=== PATIENT | male | born 1955 | race Caucasian/White ===

== ENCOUNTER → 2016-09-19 | Outpatient (CLI) | payer MEDICARE, OTHER ==
[2016-09-19 13:36] LABS: Cholesterol 165 mg/dL (<200); HDL Cholesterol 38 mg/dL (40-60); Triglycerides 105 mg/dL (<150)
== END ==
LOC: LABWHC1 12:42
PROVIDERS: ATTEND Internal Medicine Interventional Cardiology
DX: E78.5 Hyperlipidemia, unspecified (principal)
CPT/HCPCS: 36415; 80061

== ENCOUNTER → 2016-12-18 | Outpatient (CLI) | payer MEDICARE, OTHER ==
[2016-12-18 13:08] LABS: Basophils % (A) 1 %; CH 28.4; CHCM 33.6; Eosinophils # (A) 0.1 k/uL (0-0.7); Eosinophils % (A) 3 %; HGB 14.4 gm/dL (13.0-17.5); Luc # (Auto) 0.12; Luc % (Auto) 2; Lymphocytes # (A) 1.3 k/uL (1.0-4.8); Lymphocytes % (A) 25 %; MCH 28.3 pg (25.0-35.0); MCHC 33.4 g/dL (31.0-37.0); MCV 84.9 fL (80.0-100.0); Mean Platelet Volume 6.8; Monocytes # (A) 0.3 k/uL (0-1.0); Monocytes % (A) 5 %; Neutrophils # (A) 3.4 k/uL (1.3-7.7); Neutrophils % (A) 65 %; RBC 5.06 m/uL (4.30-5.90); RDW 13.9 % (11.5-15.5); WBC 5.2 k/uL (3.8-10.6)
[2016-12-18 13:42] LABS: ALT 42 U/L (21-72); AST 37 U/L (17-59); Alkaline Phosphatase 76 U/L (38-126); Anion Gap 11 mmol/L; Blood Urea Nitrogen 20 mg/dL (9-20); Calcium 9.5 mg/dL (8.4-10.2); Carbon Dioxide 26 mmol/L (22-30); Chloride 107 mmol/L (98-107); Glucose 95 mg/dL (74-99); Iron 77 ug/dL (49-181); Non-African American GFR(MDRD) >60 (>60 ml/min/1.73 sqM); Potassium 4.6 mmol/L (3.5-5.1); Sodium 144 mmol/L (137-145); Total Bilirubin 0.7 mg/dL (0.2-1.3); Total Protein 7.5 g/dL (6.3-8.2)
[2016-12-18 13:50] LABS: % Iron Saturation 22.1 % (20-50); Total Iron Binding Capacity 348 ug/dL (261-462)
== END | disposition home or self-care (01) ==
LOC: LABWHC1 12:34
PROVIDERS: ATTEND Internal Medicine
DX: D50.9 Iron deficiency anemia, unspecified (principal); I10 Essential (primary) hypertension; E78.5 Hyperlipidemia, unspecified
CPT/HCPCS: 36415; 80053; 82746; 83540; 83550; 85025

== ENCOUNTER → 2017-01-23 | Outpatient (CLI) | payer MEDICARE, OTHER ==
[2017-01-23 10:29] LABS: Prothrombin Time 19.2 sec (9.0-12.0)
== END | disposition home or self-care (01) ==
LOC: LABWHC1 09:55
PROVIDERS: ATTEND Internal Medicine Interventional Cardiology
DX: Z48.812 Encounter for surgical aftercare following surgery on the circulatory system (principal); Z95.2 Presence of prosthetic heart valve
CPT/HCPCS: 36415; 85610

== ENCOUNTER → 2017-06-09 | Outpatient (CLI) | payer MEDICARE, OTHER ==
[2017-06-09 10:08] LABS: Basophils % (A) 0 %; CH 26.1; CHCM 31.5; Eosinophils # (A) 0.2 k/uL (0-0.7); Eosinophils % (A) 4 %; HCT 39.5 % (39.0-53.0); HDW 2.45; HGB 12.6 gm/dL (13.0-17.5); Luc # (Auto) 0.13; Luc % (Auto) 2; Lymphocytes # (A) 1.5 k/uL (1.0-4.8); Lymphocytes % (A) 25 %; MCH 26.5 pg (25.0-35.0); MCHC 31.9 g/dL (31.0-37.0); MCV 83.2 fL (80.0-100.0); Mean Platelet Volume 6.9; Monocytes # (A) 0.4 k/uL (0-1.0); Monocytes % (A) 7 %; Neutrophils # (A) 3.7 k/uL (1.3-7.7); Neutrophils % (A) 62 %; RBC 4.75 m/uL (4.30-5.90); RDW 15.7 % (11.5-15.5); WBC (Perox) 6.19
[2017-06-09 10:22] LABS: ALT 34 U/L (21-72); AST 26 U/L (17-59); Alkaline Phosphatase 64 U/L (38-126); Anion Gap 8 mmol/L; Blood Urea Nitrogen 18 mg/dL (9-20); Calcium 9.6 mg/dL (8.4-10.2); Carbon Dioxide 29 mmol/L (22-30); Chloride 103 mmol/L (98-107); Creatine Kinase 73 U/L (55-170); Glucose 102 mg/dL (74-99); Non-African American GFR(MDRD) >60 (>60 ml/min/1.73 sqM); Potassium 4.4 mmol/L (3.5-5.1); Sodium 140 mmol/L (137-145); Total Bilirubin 0.7 mg/dL (0.2-1.3); Total Protein 8.1 g/dL (6.3-8.2)
[2017-06-09 13:17] LABS: Erythrocyte Sedimentation Rate 20 mm/hr (0-15)
== END | disposition home or self-care (01) ==
LOC: LABWHC1 09:40
PROVIDERS: ATTEND Internal Medicine Infectious Disease
DX: M86.8X8 Other osteomyelitis, other site (principal)
CPT/HCPCS: 36415; 80053; 82550; 83735; 85025; 85652

== ENCOUNTER → 2017-06-12 | Outpatient (CLI) | payer MEDICARE, OTHER ==
--- NOTE | 2017-06-12 13:44 | NM ---
EXAMINATION TYPE: NM bone 3 phase DATE OF EXAM: 06/12/2017 COMPARISON: 05/12/2017 HISTORY: Osteomyelitis Triple phase bone scintigraphy was performed following the injection of27.7 mCi Tc 99m MDP. Immediat e images and 5 hours post injection images acquired. FINDINGS: There is increased perfusion to the medial aspect of the right distal tibia and ankle. Soft tissue up take demonstrates increased uptake. Delayed imaging demonstrates increased uptake involving the media l aspect of the ankle and proximal tarsal bones. Additional uptake on bone scan seen involving the toes bilaterally likely post arthritic. IMPRESSION: Positive triple phase bone scan consistent with cellulitis and osteomyelitis.
== END | disposition home or self-care (01) ==
LOC: RADNMMAIN 07:19
PROVIDERS: ATTEND Internal Medicine Infectious Disease
DX: M86.9 Osteomyelitis, unspecified (principal); L03.115 Cellulitis of right lower limb; T81.31XA Disruption of external operation (surgical) wound, not elsewhere classified, initial encounter
CPT/HCPCS: 78315; A9503

== ENCOUNTER → 2017-12-11 | Outpatient (CLI) | payer MEDICARE, OTHER | END | disposition home or self-care (01) | LOC: LABWHC1 09:58 | PROVIDERS: ATTEND Internal Medicine | DX: M79.1 Myalgia (principal); R25.2 Cramp and spasm | CPT/HCPCS: 36415; 82550 ==

== ENCOUNTER → 2018-03-23 | Outpatient (CLI) | payer MEDICARE, OTHER ==
[2018-03-23 11:20] LABS: Basophils % (A) 1 %; Eosinophils # (A) 0.2 k/uL (0-0.7); Eosinophils % (A) 4 %; HCT 45.4 % (39.0-53.0); HGB 14.4 gm/dL (13.0-17.5); Lymphocytes # (A) 1.6 k/uL (1.0-4.8); Lymphocytes % (A) 26 %; MCH 27.3 pg (25.0-35.0); MCHC 31.8 g/dL (31.0-37.0); Mean Platelet Volume 6.2; Monocytes # (A) 0.4 k/uL (0-1.0); Monocytes % (A) 7 %; Neutrophils # (A) 3.6 k/uL (1.3-7.7); Neutrophils % (A) 60 %; Platelet Count 228 k/uL (150-450); RBC 5.28 m/uL (4.30-5.90); RDW 13.6 % (11.5-15.5)
[2018-03-23 11:30] LABS: ALT 23 U/L (21-72); AST 25 U/L (17-59); Albumin 4.5 g/dL (3.5-5.0); Alkaline Phosphatase 73 U/L (38-126); Anion Gap 8 mmol/L; Blood Urea Nitrogen 19 mg/dL (9-20); Calcium 9.4 mg/dL (8.4-10.2); Carbon Dioxide 29 mmol/L (22-30); Chloride 107 mmol/L (98-107); Cholesterol 180 mg/dL (<200); Glucose 89 mg/dL (74-99); HDL Cholesterol 37 mg/dL (40-60); LDL Cholesterol,Calculated 109 mg/dL (0-99); Potassium 4.2 mmol/L (3.5-5.1); Sodium 144 mmol/L (137-145); Total Bilirubin 0.8 mg/dL (0.2-1.3); Total Protein 7.7 g/dL (6.3-8.2); Triglycerides 170 mg/dL (<150)
[2018-03-23 11:43] LABS: T4, Free (Free Thyroxine) 0.82 ng/dL (0.78-2.19)
[2018-03-23 17:12] LABS: Vitamin D 25 Hydroxy 37.3 ng/mL (30.0-100.0)
== END | disposition home or self-care (01) ==
LOC: LABWHC1 10:23
PROVIDERS: ATTEND Internal Medicine
DX: E78.5 Hyperlipidemia, unspecified (principal); I10 Essential (primary) hypertension; R53.83 Other fatigue; R53.1 Weakness
CPT/HCPCS: 36415; 80053; 80061; 82306; 82607; 84439; 84443; 85025

== ENCOUNTER → 2018-05-25 | Outpatient (CLI) | payer MEDICARE, OTHER ==
[2018-05-25 16:52] LABS: Blood Urea Nitrogen 18 mg/dL (9-20)
== END ==
LOC: LABWHC1 15:44
PROVIDERS: ATTEND Surgery
DX: I10 Essential (primary) hypertension (principal)
CPT/HCPCS: 36415; 82565; 84520

== ENCOUNTER → 2018-06-02 | Outpatient (CLI) | payer MEDICARE, OTHER ==
[2018-06-03 14:43] LABS: LDL Cholesterol,Calculated 110.2 mg/dL (0.0-131.0); VLDL Calculation 27.8 mg/dL (5.00-40.00)
== END | disposition home or self-care (01) ==
LOC: LABWHC1 11:40
PROVIDERS: ATTEND Internal Medicine Interventional Cardiology
DX: E78.00 Pure hypercholesterolemia, unspecified (principal)
CPT/HCPCS: 36415; 80061

== ENCOUNTER → 2018-06-09 | Outpatient (CLI) | payer MEDICARE, OTHER ==
[2018-06-09 16:15] LABS: Anion Gap 7.1 mmol/L (4.00-12.00); Calcium 9.5 mg/dL (8.7-10.3); Carbon Dioxide 27.9 mmol/L (21.6-31.8); Potassium 3.9 mmol/L (3.5-5.5)
== END | disposition home or self-care (01) ==
LOC: LABWHC1 11:08
PROVIDERS: ATTEND Internal Medicine Interventional Cardiology
DX: I10 Essential (primary) hypertension (principal)
CPT/HCPCS: 36415; 80048

== ENCOUNTER → 2018-10-01 | Outpatient (CLI) | payer MEDICARE, OTHER ==
[2018-10-01 17:57] LABS: LDL Cholesterol,Calculated 115.4 mg/dL (0.0-131.0); VLDL Calculation 33.6 mg/dL (5.00-40.00)
== END | disposition home or self-care (01) ==
LOC: LABWHC1 10:08
PROVIDERS: ATTEND Internal Medicine
DX: E78.00 Pure hypercholesterolemia, unspecified (principal)
CPT/HCPCS: 80061

== ENCOUNTER → 2019-05-03 | Outpatient (CLI) | payer MEDICARE, OTHER ==
[2019-05-03 10:56] LABS: African American GFR (CKD) >90 (>60 ml/min/1.73 sqM); Blood Urea Nitrogen 20 mg/dL (9-20)
== END ==
LOC: LABWHC1 10:17
PROVIDERS: ATTEND Surgery
DX: I10 Essential (primary) hypertension (principal)
CPT/HCPCS: 36415; 82565; 84520

== ENCOUNTER → 2019-05-24 | Outpatient (CLI) | payer MEDICARE, OTHER ==
[2019-05-24 16:50] LABS: Chol/HDL Ratio 7.05; LDL Cholesterol,Calculated 185.2 mg/dL (0.0-131.0); VLDL Calculation 38.8 mg/dL (5.00-40.00)
== END | disposition home or self-care (01) ==
LOC: LABWHC1 09:39
PROVIDERS: ATTEND Internal Medicine Interventional Cardiology
DX: E78.5 Hyperlipidemia, unspecified (principal)
CPT/HCPCS: 36415; 80061

== ENCOUNTER 2020-04-04 20:19 | Inpatient (IN) | payer MEDICARE, OTHER ==
[2020-04-04] MEDS ORDERED: ACETAMINOPHEN TAB 500 MG TAB PO STA (20:37)
--- NOTE | 2020-04-04 21:20 | ED ---
General Adult HPI <Jose L Tobar Harvey - Last Filed: 04/05/20 00:27> - General Source: patient Mode of arrival: ambulatory Limitations: no limitations <Aleshia Ornelasmelissa Olmstead - Last Filed: 04/08/20 07:06> - General Chief complaint: Nausea/Vomiting/Diarrhea Stated complaint: Fever Time Seen by Provider: 04/04/20 20:36 - History of Present Illness Initial comments: Dictation was produced using [employer] dictation software. please excuse any grammatical, word or spelling errors. This patient was cared for during a federal and state declared state of emergency secondary to Covid 19 Chief Complaint: 64-year-old male presents today with constitutional symptoms. History of Present Illness: 44-year-old male he has past medical history of valve replacement, hypertension. He presents today for constitutional symptoms. Over the last 2-3 days he's been having worsening fevers. He states his fevers at home were approximately 103. Since that he's been taking Motrin and Tylenol for his symptom control. States that his fever has not been improving. Does complain of associated myalgias, diarrhea and headache. Patient has any overt or obvious exposures to anybody with coronavirus or covid 19. Patient denies any abdominal pain. He does have some slight sore throat or what he describes as tickling in his throat. He does have mild cough however nonproductive spu alyse. The ROS documented in this emergency department record has been reviewed and confirmed by me. Those systems with pertinent positive or negative responses have been documented in the HPI. All other systems are other negative and/or noncontributory. PHYSICAL EXAM: General Impression: Alert and oriented x3, not in acute distress HEENT: Normocephalic atraumatic, extra-ocular movements intact, pupils equal and reactive to light bilaterally, mucous membranes moist, mild oropharyngeal erythema without exudates Cardiovascular: Heart regular rate and rhythm Chest: Able to complete full sentences, no retractions, no tachypnea Abdomen: abdomen soft, non-tender, non-distended, no organomegaly Musculoskeletal: Pulses present and equal in all extremities, no peripheral edema Motor: no focal deficits noted Neurological: CN II-XII grossly intact, no focal motor or sensory deficits noted, negative Brudzinski's, negative Kernig's, negative limits Skin: Intact with no visualized rashes Psych: Normal affect and mood ED course: 64 y Old male presents with fever and constitutional symptoms. Signs upon arrival shows temperature 103.0, heart rate of 124, 93% on room air. Laboratory evaluation obtained. CBC is unremarkable. There is lymph lymphocytopenia. Coag panel shows INR 2.4. D-dimer is elevated 1.02. Metabolic panel is otherwise unremarkable. He does of note had elevated lactic dehydrogenase of 81 and a CRP of 215. Urinalysis is unremarkable. Group A strep was negative. Chest x-ray is nonacute. EKG interpretation: Ventricular rate 107, sinus tachycardia, MD interval 160, QRS 92, QTc 469. No MD prolongation, no QTC prolongation, no ST or T-wave changes noted. Overall, this EKG is unremarkable (Bang Ornelas) - Related Data Home Medications Medication Instructions Recorded Confirmed Aspirin EC [Ecotrin Low Dose] 81 mg PO DAILY 12/01/14 04/04/20 Ferrous Sulfate [Iron (65 MG 325 mg PO DAILY 12/01/14 04/04/20 Elemental)] Multivit-Min/FA/Lycopene/Lut 1 each PO DAILY 12/01/14 04/04/20 [Centrum Silver Tablet] Vit C/E/Zn/Coppr/Lutein/Zeaxan 1 each PO DAILY 12/01/14 04/04/20 [Preservision Areds 2 Softgel] ALPRAZolam [Xanax] 0.25 mg PO QAM PRN 04/11/17 04/04/20 Cyanocobalamin (Vitamin B-12) 2,500 mcg PO DAILY 04/11/17 04/04/20 [Vitamin B12] Warfarin Sodium [Coumadin] 4 mg PO MO@2100 04/11/17 04/04/20 Warfarin Sodium [Coumadin] 6 mg PO SUTUWEFRSA@2100 04/11/17 04/04/20 Chlorthalidone [Hygroton] 12.5 mg PO QAM 04/04/20 04/04/20 Cholecalciferol [Vitamin D3 (25 2,000 unit PO DAILY 04/04/20 04/04/20 Mcg = 1000 Iu)] Evolocumab [Repatha Sureclick] 140 mg INJ Q14D 04/04/20 04/04/20 Losartan Potassium [Cozaar] 50 mg PO BID 04/04/20 04/04/20 Magnesium 250 mg PO HS 04/04/20 04/04/20 Metoprolol Tartrate [Lopressor] 25 mg PO BID 04/04/20 04/04/20 Tadalafil [Cialis] 10 mg PO DIRECTED PRN 04/04/20 04/04/20 Allergies Allergy/AdvReac Type Severity Reaction Status Date / Time copper Allergy Rash/Hives Verified 04/04/20 23:48 Sulfa (Sulfonamide Allergy Swelling Verified 04/04/20 23:48 Antibiotics) Review of Systems ROS Other: All systems not noted in ROS Statement are negative. <Jose L Tobar - Last Filed: 04/05/20 00:27> ROS Other: All systems not noted in ROS Statement are negative. <Bang Ornelas - Last Filed: 04/08/20 07:06> ROS Statement: Those systems with pertinent positive or pertinent negative responses have been documented in the HPI. Past Medical History Past Medical History: Hypertension, Sleep Apnea/CPAP/BIPAP, Sleep Apnea/CPAP/BIPAP Additional Past Medical History / Comment(s): BILAT CATARACTS, Aortic dissection,. HX FX RT FOOT 12/24/16. RT HEEL WOUND, History of Any Multi-Drug Resistant Organisms: MRSA Date of last positivie culture/infection: 2016 MDRO Source:: r heel Past Surgical History: Joint Replacement Additional Past Surgical History / Comment(s): aortic aneurysm repair, aortic heart valve replacement, aortic disection, total left knee replacedCOLONOSCOPY, RT FOOT SURGERY-HAS PLATE AND 10 PINS Past Anesthesia/Blood Transfusion Reactions: No Reported Reaction Past Psychological History: No Psychological Hx Reported Smoking Status: Former smoker Past Alcohol Use History: Rare Past Drug Use History: None Reported - Past Family History Father Family Medical History: Cancer Additional Family Medical History / Comment(s): lung CA Mother Family Medical History: Myocardial Infarction ([place]) Brother(s) Family Medical History: Cancer Additional Family Medical History / Comment(s): throat <Bang Ornelas - Last Filed: 04/08/20 07:06> General Exam General appearance: alert, in no apparent distress Head exam: Present: atraumatic, normocephalic, normal inspection Eye exam: Present: normal appearance, PERRL, EOMI. Absent: scleral icterus, conjunctival injection, periorbital swelling ENT exam: Present: normal exam, mucous membranes moist Neck exam: Present: normal inspection. Absent: tenderness, meningismus, lymphadenopathy Respiratory exam: Present: normal lung sounds bilaterally. Absent: respiratory distress, wheezes, rales, rhonchi, stridor Cardiovascular Exam: Present: normal rhythm, tachycardia, normal heart sounds. Absent: systolic murmur, diastolic murmur, rubs, gallop, clicks GI/Abdominal exam: Present: soft, normal bowel sounds. Absent: distended, tenderness, guarding, rebound, rigid Extremities exam: Present: normal inspection, full ROM, normal capillary refill. Absent: tenderness, pedal edema, joint swelling, calf tenderness Back exam: Present: normal inspection Neurological exam: Present: alert, oriented X3, CN II-XII intact Psychiatric exam: Present: normal affect, normal mood Skin exam: Present: warm, dry, intact, normal color. Absent: rash <Jose L Tobar - Last Filed: 04/05/20 00:27> Limitations: no limitations <Bang Ornelas - Last Filed: 04/08/20 07:06> Course <Jose L Tobar - Last Filed: 04/05/20 00:27> Vital Signs 04/04/20 04/04/20 04/04/20 20:26 22:09 23:52 Temperature 103.0 F H 100.2 F H Pulse Rate 124 H 110 H 102 H Respiratory 18 18 18 Rate Blood Pressure 122/71 108/58 108/53 O2 Sat by Pulse 93 L 94 L 96 Oximetry 04/05/20 04/05/20 04/05/20 02:10 03:22 06:23 Temperature 104.2 F H 100.4 F H 99.3 F Pulse Rate 112 H 97 Respiratory 16 19 Rate Blood Pressure 119/53 108/63 O2 Sat by Pulse 93 L 99 Oximetry 04/05/20 04/05/20 07:22 10:30 Temperature 98.1 F 102.1 F H Pulse Rate 101 H 101 H Respiratory 16 18 Rate Blood Pressure 106/70 122/62 O2 Sat by Pulse 96 96 Oximetry - Reevaluation(s) Reevaluation #1: 04/05/20 00:27 Medical records reviewed (Jose L Tobar) Reevaluation #2: 04/05/20 00:27 Patient relatively no distress no significant active work of breathing (Jose L Tobar) Medical Decision Making - Lab Data Result diagrams: 04/04/20 21:53 04/04/20 21:53 - Radiology Data Radiology results: report reviewed (Chest x-ray CT brain CT had neck negative for acute disease), image reviewed <Jose L Tobar - Last Filed: 04/05/20 00:27> - Lab Data Result diagrams: 04/07/20 07:55 04/07/20 07:55 <Bang Ornelas - Last Filed: 04/08/20 07:06> - Medical Decision Making 64 male DF for evaluation patient is rule out coronavirus doesn't for coronavirus has fever, will admit for continued monitoring evaluation (Jose L Tobar) - Lab Data Lab Results 04/04/20 04/04/20 04/04/20 Range/Units 21:53 21:53 21:53 WBC 7.3 (3.8-10.6) k/uL RBC 5.01 (4.30-5.90) m/uL Hgb 14.9 (13.0-17.5) gm/dL Hct 45.5 (39.0-53.0) % MCV 91.0 (80.0-100.0) fL MCH 29.8 (25.0-35.0) pg MCHC 32.7 (31.0-37.0) g/dL RDW 13.0 (11.5-15.5) % Plt Count 211 (150-450) k/uL Neutrophils % 89 % Lymphocytes % 5 % Monocytes % 4 % Eosinophils % 1 % Basophils % 0 % Neutrophils # 6.4 (1.3-7.7) k/uL Lymphocytes # 0.4 L (1.0-4.8) k/uL Monocytes # 0.3 (0-1.0) k/uL Eosinophils # 0.0 (0-0.7) k/uL Basophils # 0.0 (0-0.2) k/uL PT 22.9 H (9.0-12.0) sec INR 2.4 H (<1.2) APTT 39.8 H (22.0-30.0) sec D-Dimer 1.02 H (<0.60) mg/L FEU Sodium (137-145) mmol/L Potassium (3.5-5.1) mmol/L Chloride (98-107) mmol/L Carbon Dioxide (22-30) mmol/L Anion Gap mmol/L BUN (9-20) mg/dL Creatinine (0.66-1.25) mg/dL Est GFR (CKD-EPI)AfAm (>60 ml/min/1.73 sqM) Est GFR (CKD-EPI)NonAf (>60 ml/min/1.73 sqM) Glucose (74-99) mg/dL Plasma Lactic Acid Vic (0.7-2.0) mmol/L Calcium (8.4-10.2) mg/dL Magnesium (1.6-2.3) mg/dL Ferritin (22.0-322.0) ng/mL Total Bilirubin (0.2-1.3) mg/dL AST (17-59) U/L ALT (4-49) U/L Alkaline Phosphatase (38-126) U/L Lactate Dehydrogenase (313-618) U/L C-Reactive Protein (<10.0) mg/L Total Protein (6.3-8.2) g/dL Albumin (3.5-5.0) g/dL Procalcitonin (0.02-0.09) ng/mL Urine Color Urine Appearance (Clear) Urine pH (5.0-8.0) Ur Specific [place] (1.001-1.035) Urine Protein (Negative) Urine Glucose (UA) (Negative) Urine Ketones (Negative) Urine Blood (Negative) Urine Nitrite (Negative) Urine Bilirubin (Negative) Urine Urobilinogen (<2.0) mg/dL Ur Leukocyte Esterase (Negative) Urine RBC (0-5) /hpf Urine WBC (0-5) /hpf Urine Bacteria (None) /hpf Hyaline Casts (0-2) /lpf Urine Mucus (None) /hpf Coronavirus (PCR) Not Detected (Not Detected) Group A Strep Rapid (Negative) 04/04/20 04/04/20 04/04/20 Range/Units 21:53 21:53 21:53 WBC (3.8-10.6) k/uL RBC (4.30-5.90) m/uL Hgb (13.0-17.5) gm/dL Hct (39.0-53.0) % MCV (80.0-100.0) fL MCH (25.0-35.0) pg MCHC (31.0-37.0) g/dL RDW (11.5-15.5) % Plt Count (150-450) k/uL Neutrophils % % Lymphocytes % % Monocytes % % Eosinophils % % Basophils % % Neutrophils # (1.3-7.7) k/uL Lymphocytes # (1.0-4.8) k/uL Monocytes # (0-1.0) k/uL Eosinophils # (0-0.7) k/uL Basophils # (0-0.2) k/uL PT (9.0-12.0) sec INR (<1.2) APTT (22.0-30.0) sec D-Dimer (<0.60) mg/L FEU Sodium 136 L (137-145) mmol/L Potassium 3.5 (3.5-5.1) mmol/L Chloride 104 (98-107) mmol/L Carbon Dioxide 22 (22-30) mmol/L Anion Gap 10 mmol/L BUN 25 H (9-20) mg/dL Creatinine 1.27 H (0.66-1.25) mg/dL Est GFR (CKD-EPI)AfAm 69 (>60 ml/min/1.73 sqM) Est GFR (CKD-EPI)NonAf 59 (>60 ml/min/1.73 sqM) Glucose 118 H (74-99) mg/dL Plasma Lactic Acid Vic 1.0 (0.7-2.0) mmol/L Calcium 8.9 (8.4-10.2) mg/dL Magnesium 1.9 (1.6-2.3) mg/dL Ferritin 277.8 (22.0-322.0) ng/mL Total Bilirubin 1.2 (0.2-1.3) mg/dL AST 35 (17-59) U/L ALT 29 (4-49) U/L Alkaline Phosphatase 64 (38-126) U/L Lactate Dehydrogenase 801 H (313-618) U/L C-Reactive Protein 215.5 H (<10.0) mg/L Total Protein 7.4 (6.3-8.2) g/dL Albumin 4.2 (3.5-5.0) g/dL Procalcitonin (0.02-0.09) ng/mL Urine Color Urine Appearance (Clear) Urine pH (5.0-8.0) Ur Specific [place] (1.001-1.035) Urine Protein (Negative) Urine Glucose (UA) (Negative) Urine Ketones (Negative) Urine Blood (Negative) Urine Nitrite (Negative) Urine Bilirubin (Negative) Urine Urobilinogen (<2.0) mg/dL Ur Leukocyte Esterase (Negative) Urine RBC (0-5) /hpf Urine WBC (0-5) /hpf Urine Bacteria (None) /hpf Hyaline Casts (0-2) /lpf Urine Mucus (None) /hpf Coronavirus (PCR) (Not Detected) Group A Strep Rapid Negative (Negative) 04/04/20 04/04/20 Range/Units 21:53 22:05 WBC (3.8-10.6) k/uL RBC (4.30-5.90) m/uL Hgb (13.0-17.5) gm/dL Hct (39.0-53.0) % MCV (80.0-100.0) fL MCH (25.0-35.0) pg MCHC (31.0-37.0) g/dL RDW (11.5-15.5) % Plt Count (150-450) k/uL Neutrophils % % Lymphocytes % % Monocytes % % Eosinophils % % Basophils % % Neutrophils # (1.3-7.7) k/uL Lymphocytes # (1.0-4.8) k/uL Monocytes # (0-1.0) k/uL Eosinophils # (0-0.7) k/uL Basophils # (0-0.2) k/uL PT (9.0-12.0) sec INR (<1.2) APTT (22.0-30.0) sec D-Dimer (<0.60) mg/L FEU Sodium (137-145) mmol/L Potassium (3.5-5.1) mmol/L Chloride (98-107) mmol/L Carbon Dioxide (22-30) mmol/L Anion Gap mmol/L BUN (9-20) mg/dL Creatinine (0.66-1.25) mg/dL Est GFR (CKD-EPI)AfAm (>60 ml/min/1.73 sqM) Est GFR (CKD-EPI)NonAf (>60 ml/min/1.73 sqM) Glucose (74-99) mg/dL Plasma Lactic Acid Vic (0.7-2.0) mmol/L Calcium (8.4-10.2) mg/dL Magnesium (1.6-2.3) mg/dL Ferritin (22.0-322.0) ng/mL Total Bilirubin (0.2-1.3) mg/dL AST (17-59) U/L ALT (4-49) U/L Alkaline Phosphatase (38-126) U/L Lactate Dehydrogenase (313-618) U/L C-Reactive Protein (<10.0) mg/L Total Protein (6.3-8.2) g/dL Albumin (3.5-5.0) g/dL Procalcitonin 0.39 H (0.02-0.09) ng/mL Urine Color Yellow Urine Appearance Clear (Clear) Urine pH 5.5 (5.0-8.0) Ur Specific [place] 1.031 (1.001-1.035) Urine Protein 1+ H (Negative) Urine Glucose (UA) Negative (Negative) Urine Ketones Negative (Negative) Urine Blood Trace H (Negative) Urine Nitrite Negative (Negative) Urine Bilirubin Negative (Negative) Urine Urobilinogen <2.0 (<2.0) mg/dL Ur Leukocyte Esterase Negative (Negative) Urine RBC 6 H (0-5) /hpf Urine WBC 3 (0-5) /hpf Urine Bacteria Rare H (None) /hpf Hyaline Casts 86 H (0-2) /lpf Urine Mucus Moderate H (None) /hpf Coronavirus (PCR) (Not Detected) Group A Strep Rapid (Negative) Critical Care Time Critical Care Time: Yes Total Critical Care Time: 31 <Jose L Tobar - Last Filed: 04/05/20 00:27> Disposition Is patient prescribed a controlled substance at d/c from ED?: No <Jose L Tobar - Last Filed: 04/05/20 00:27> Decision Time: 07:06 <Bang Ornelas - Last Filed: 04/08/20 07:06> Clinical Impression: Fever, Viral infection Narrative: ro SANDI (Jose L Tobar) Disposition: ADMITTED IP TO THIS HOSP Condition: Fair
--- NOTE | 2020-04-04 21:21 | XR ---
EXAMINATION TYPE: XR chest 1V portable DATE OF EXAM: 04/04/2020 COMPARISON: 11/11/2017 HISTORY: Fever TECHNIQUE: FINDINGS: There is some mild linear density left lung base. There is stent in the aortic arch. There are sternal wires. Heart size is normal. There is no heart failure. IMPRESSION: There is some mild scarring and atelectasis left lung base slightly worse than last exam. Normal heart. No pulmonary consolidation.
[2020-04-04 22:17] LABS: Basophils % (A) 0 %; Eosinophils % (A) 1 %; HCT 45.5 % (39.0-53.0); HGB 14.9 gm/dL (13.0-17.5); Lymphocytes # (A) 0.4 k/uL (1.0-4.8); Lymphocytes % (A) 5 %; MCH 29.8 pg (25.0-35.0); MCHC 32.7 g/dL (31.0-37.0); Mean Platelet Volume 6.5; Monocytes # (A) 0.3 k/uL (0-1.0); Monocytes % (A) 4 %; Neutrophils # (A) 6.4 k/uL (1.3-7.7); Neutrophils % (A) 89 %; Platelet Count 211 k/uL (150-450); RBC 5.01 m/uL (4.30-5.90); WBC 7.3 k/uL (3.8-10.6)
[2020-04-04 22:24] LABS: Albumin 4.2 g/dL (3.5-5.0); Calcium 8.9 mg/dL (8.4-10.2); INR 2.4 (<1.2); Magnesium 1.9 mg/dL (1.6-2.3); Partial Thromboplastin Time 39.8 sec (22.0-30.0); Potassium 3.5 mmol/L (3.5-5.1); Prothrombin Time 22.9 sec (9.0-12.0); Total Bilirubin 1.2 mg/dL (0.2-1.3); Total Protein 7.4 g/dL (6.3-8.2)
[2020-04-04 22:46] LABS: Appearance,Urine Clear (Clear); Bacteria,Urine Rare /hpf; Bilirubin,Urine Negative (Negative); Blood,Urine Trace (Negative); Color,Urine Yellow; Glucose,Urine (UA) Negative (Negative); Hyaline Casts,Urine 86 /lpf (0-2); Ketones,Urine Negative (Negative); Leukocyte Esterase,Urine Negative (Negative); Mucus,Urine Moderate /hpf; Nitrite,Urine Negative (Negative); PH, Urine 5.5 (5.0-8.0); Protein,Urine 1+ (Negative); RBC,Urine 6 /hpf (0-5); Specific Gravity,Urine 1.031 (1.001-1.035); Urobilinogen,Urine <2.0 mg/dL (<2.0); WBC,Urine 3 /hpf (0-5)
[2020-04-04 22:46] LABS: C Reactive Protein 215.5 mg/L (<10.0)
[2020-04-04 22:57] LABS: D-Dimer 1.02 mg/L FEU (<0.60)
--- NOTE | 2020-04-04 23:40 | CT ---
EXAMINATION TYPE: CT brain wo con DATE OF EXAM: 04/04/2020 COMPARISON: 12/02/2014 HISTORY: headache, fever CT DLP: 1094 mGycm Automated exposure control for dose reduction was used. Ventricles have fairly normal size. There is no mass effect nor midline shift. There is no sign of in tracranial hemorrhage. The calvarium is intact. There is mild atrophy appropriate for age. Skull base is intact. There is normal aeration of the mastoid sinuses. IMPRESSION: Head CT scan appears normal for age. No adverse change.
--- NOTE | 2020-04-04 23:50 | CT ---
EXAMINATION TYPE: CT angio chest DATE OF EXAM: 04/04/2020 COMPARISON: None HISTORY: elvated d-dimer hx of aortic dissection CT DLP: 542.8 mGycm Automated exposure control for dose reduction was used. CONTRAST: Performed with IV Contrast, patient injected with 80 mL of Isovue 370. Images were obtained from the thoracic inlet to the diaphragm with IV contrast. There are 3-D post pr ocessed images. There is stent in the descending thoracic aorta. Stent appears in good position. There is normal opac ification of the stent. There is aneurysm of the descending thoracic aorta that measures up to 5.4 cm . There is differential enhancement of the aorta involving the lower thoracic aorta which does not thurman ve the stent. This apparently relates to a chronic dissection of the lower thoracic aorta is also dem onstrated by the CT angiogram of the chest and abdomen of 12/01/2014. The true lumen is narrowed to 11 mm. The thoracic aortic aneurysm is increased 1 cm compared to the old CT scan at the level of the l eft pulmonary artery. There is suboptimal contrast opacification of the pulmonary arteries. I see no evidence of a definite filling defect to suggest pulmonary embolism. There is no mediastinal adenopathy. There are no hilar masses. Heart size is normal. There is no gabriella cardial effusion. The lungs are clear of consolidation. There is no evidence of a pulmonary mass. The re is no pleural effusion. Thoracic vertebra have normal alignment. There is some spurring of the endplates. I see no bony destr uctive process. The ribs appear intact. IMPRESSION: No evidence of pulmonary embolism. Descending thoracic aortic aneurysm increased 1 cm in the maximum dimension compared to exam 5 years ago. Chronic aortic dissection similar to old exam.
[2020-04-05] MEDS ORDERED: ACETAMINOPHEN TAB 325 MG TAB PO STA (02:13)
[2020-04-05] MEDS ORDERED: IBUPROFEN 800 MG TAB PO STA (02:13)
[2020-04-05] MEDS: SODIUM CHLORIDE 0.9% 1,000 ML IV SCH ×3 (02:22→15:55)
[2020-04-05] MEDS ORDERED: LOPERAMIDE 2 MG CAP PO STA ×2 (03:25→11:32)
[2020-04-05 09:34] LABS: Ferritin 277.8 ng/mL (22.0-322.0)
[2020-04-05] MEDS: ACETAMINOPHEN TAB 325 MG TAB PO PRN ×3 (10:29→22:36)
[2020-04-05] MEDS ORDERED: ENOXAPARIN 30 MG/0.3 ML SYRINGE SQ SCH (11:15)
--- NOTE | 2020-04-05 11:17 | P.HPIM ---
History of Present Illness this is a pleasant 64 years old male with past medical history of hypertension, sleep apnea, aortic dissection status post repair, aortic valve replacement. He follows up with Dr. Martinez as his PCP, although he denies any history of lung tissue. He has a admitted attorneys at trial FOR his aortic valvereplacement disease. This time patient presents with fever and upper respiratory symptoms. He has a sneezing, dry cough and and generalized body aches, mainly in his muscles associated with headache has been going on for about 3 days He denies chest pain or shortness of breath, however he has significant diarrhea 1 today which was watery-like, light brown with no blood. No abdominal pain or nausea vomiting No urinary complaints He denies smoking, alcohol or illicit drugs on admission he has a fever of 104.2, patient is breathing at 16-19 breath per minute, blood pressure 106/70 and his 96% on room air. labsShowing unremarkable WBC at 7.3K, unremarkable rest of CBC,no leukopenia, INR 2.4, sodium 136, creatinine is elevated at 1.7.liver enzymes not elevated. C-reactive protein elevated at 215, pro-calcitonin is elevated at 0.39. Urinalysis is getting concentrated but not obvious source of infection. Group A strep rapid is negative Chest x-ray: There is mild scarring and atelectasis in the left lung base sligh tly worse than last exam. No pulmonary consolidation. CTA of the chest:no PE. Descending thoracic aortic aneurysm increased 1 cm every maximum dimension compared to exam 5 years ago. Chronic aortic dissection similar to old exam in the emergency room patient was started on ibuprofen, no antibiotics. Normal saline at 130 mL/h. Review of Systems -CONSTITUTIONAL: as above HEENT: No recent visual problems or hearing problems. Denied any sore throat. CARDIOVASCULAR: No orthopnea, PND, no palpitations, no syncope. PULMONARY: No shortness of breath, no hemoptysis. GASTROINTESTINAL: No diarrhea, no nausea, no vomiting, no abdominal pain. Normoactive bowel sounds. NEUROLOGICAL: No headaches, no weakness, no numbness. HEMATOLOGICAL: Denies any bleeding or petechiae. GENITOURINARY: Denies any burning micturition, frequency, or urgency. MUSCULOSKELETAL/RHEUMATOLOGICAL: Denies any joint pain, swelling. ENDOCRINE: Denies any polyuria or polydipsia. Past Medical History Past Medical History: Hypertension, Sleep Apnea/CPAP/BIPAP, Sleep Apnea/CPAP/BIPAP Additional Past Medical History / Comment(s): BILAT CATARACTS, Aortic dissection,. HX FX RT FOOT 12/24/16. RT HEEL WOUND, History of Any Multi-Drug Resistant Organisms: MRSA Date of last positivie culture/infection: 2016 MDRO Source:: r heel Past Surgical History: Joint Replacement Additional Past Surgical History / Comment(s): aortic aneurysm repair, aortic heart valve replacement, aortic disection, total left knee replacedCOLONOSCOPY, RT FOOT SURGERY-HAS PLATE AND 10 PINS Past Anesthesia/Blood Transfusion Reactions: No Reported Reaction Past Psychological History: No Psychological Hx Reported Smoking Status: Former smoker Past Alcohol Use History: Rare Past Drug Use History: None Reported - Past Family History Father Family Medical History: Cancer Additional Family Medical History / Comment(s): lung CA Mother Family Medical History: Myocardial Infarction ([place]) Brother(s) Family Medical History: Cancer Additional Family Medical History / Comment(s): throat Medications and Allergies Home Medications Medication Instructions Recorded Confirmed Type Aspirin EC [Ecotrin Low Dose] 81 mg PO DAILY 12/01/14 04/04/20 History Ferrous Sulfate [Iron (65 MG 325 mg PO DAILY 12/01/14 04/04/20 History Elemental)] Multivit-Min/FA/Lycopene/Lut 1 each PO DAILY 12/01/14 04/04/20 History [Centrum Silver Tablet] Vit C/E/Zn/Coppr/Lutein/Zeaxan 1 each PO DAILY 12/01/14 04/04/20 History [Preservision Areds 2 Softgel] ALPRAZolam [Xanax] 0.25 mg PO QAM PRN 04/11/17 04/04/20 History Cyanocobalamin (Vitamin B-12) 2,500 mcg PO DAILY 04/11/17 04/04/20 History [Vitamin B12] Warfarin Sodium [Coumadin] 4 mg PO MO@209904/11/17 04/04/20 History Warfarin Sodium [Coumadin] 6 mg PO SUTUWEFRSA@209904/11/17 04/04/20 History Chlorthalidone [Hygroton] 12.5 mg PO QAM 04/04/20 04/04/20 History Cholecalciferol [Vitamin D3 (25 2,000 unit PO DAILY 04/04/20 04/04/20 History Mcg = 1000 Iu)] Evolocumab [Repatha Sureclick] 140 mg INJ Q14D 04/04/20 04/04/20 History Losartan Potassium [Cozaar] 50 mg PO BID 04/04/20 04/04/20 History Magnesium 250 mg PO HS 04/04/20 04/04/20 History Metoprolol Tartrate [Lopressor] 25 mg PO BID 04/04/20 04/04/20 History Tadalafil [Cialis] 10 mg PO DIRECTED PRN 04/04/20 04/04/20 History Allergies Allergy/AdvReac Type Severity Reaction Status Date / Time copper Allergy Rash/Hives Verified 04/04/20 23:48 Sulfa (Sulfonamide Allergy Swelling Verified 04/04/20 23:48 Antibiotics) Physical Exam Vitals: Vital Signs Temp Pulse Resp BP Pulse Ox 04/05/20 07:22 98.1 F 101 H 16 106/70 96 04/05/20 06:23 99.3 F 97 19 108/63 99 04/05/20 03:22 100.4 F H 04/05/20 02:10 104.2 F H 112 H 16 119/53 93 L 04/04/20 23:52 100.2 F H 102 H 18 108/53 96 04/04/20 22:09 110 H 18 108/58 94 L 04/04/20 20:26 103.0 F H 124 H 18 122/71 93 L Intake and Output 04/04/20 04/05/20 04/05/20 22:59 06:59 14:59 Other: Weight 90.718 kg GENERAL: The patient is alert and oriented x3, not in any acute distress. Well developed, well nourished. HEENT: Pupils are round and equally reacting to light. EOMI. No scleral icterus. No conjunctival pallor. Normocephalic, atraumatic. No pharyngeal erythema. No thyromegaly. CARDIOVASCULAR: S1 and S2 present. No murmurs, rubs, or gallops. PULMONARY: Chest is clear to auscultation, no wheezing or crackles. ABDOMEN: Soft, nontender, nondistended, normoactive bowel sounds. No palpable or ganomegaly. MUSCULOSKELETAL: No joint swelling or deformity. EXTREMITIES: No cyanosis, clubbing, or pedal edema. NEUROLOGICAL: Gross neurological examination did not reveal any focal deficits. SKIN: No rashes. No petechiae Results CBC & Chem 7: 04/04/20 21:53 04/04/20 21:53 Labs: Abnormal Lab Results - Last 24 Hours (Table) 04/04/20 04/04/20 04/04/20 Range/Units 21:53 21:53 21:53 Lymphocytes # 0.4 L (1.0-4.8) k/uL PT 22.9 H (9.0-12.0) sec INR 2.4 H (<1.2) APTT 39.8 H (22.0-30.0) sec D-Dimer 1.02 H (<0.60) mg/L FEU Sodium 136 L (137-145) mmol/L BUN 25 H (9-20) mg/dL Creatinine 1.27 H (0.66-1.25) mg/dL Glucose 118 H (74-99) mg/dL Lactate Dehydrogenase 801 H (313-618) U/L C-Reactive Protein 215.5 H (<10.0) mg/L Procalcitonin (0.02-0.09) ng/mL Urine Protein (Negative) Urine Blood (Negative) Urine RBC (0-5) /hpf Urine Bacteria (None) /hpf Hyaline Casts (0-2) /lpf Urine Mucus (None) /hpf 04/04/20 04/04/20 Range/Units 21:53 22:05 Lymphocytes # (1.0-4.8) k/uL PT (9.0-12.0) sec INR (<1.2) APTT (22.0-30.0) sec D-Dimer (<0.60) mg/L FEU Sodium (137-145) mmol/L BUN (9-20) mg/dL Creatinine (0.66-1.25) mg/dL Glucose (74-99) mg/dL Lactate Dehydrogenase (313-618) U/L C-Reactive Protein (<10.0) mg/L Procalcitonin 0.39 H (0.02-0.09) ng/mL Urine Protein 1+ H (Negative) Urine Blood Trace H (Negative) Urine RBC 6 H (0-5) /hpf Urine Bacteria Rare H (None) /hpf Hyaline Casts 86 H (0-2) /lpf Urine Mucus Moderate H (None) /hpf Assessment and Plan Assessment: upper respiratory Tract infection, mostly viral versus others systemic inflammatory response with fever and tachycardia, no leukocytosis or tachypnea Mostly sepsis of unknown source acute kidney injury, mostly prerenal, also patient got IV contrast so we will ne ed close monitoring Thoracic aortic aneurysm increased 1 cm from old exam with chronic aortic dissec tion Hypertension Sleep apnea History of aortic dissection status post repair and aortic valve replacement Plan: this is a pleasant 64 years old male who presents with fever and sepsis and URT symptoms. Pulmonary and infectious disease were consulted,follow-up with their recommendation. Continue with IV fluids with close monitoring of vitals and kidney function. To avoid nephrotoxins. Monitor blood pressure and try to avoid hypotension Labs and medication were reviewed.. Continue same treatment. Continue with symptomatic treatment. Resume home medication. Monitor lytes and vitals. DVT and GI prophylaxis. Further recommendations depends on the clinical course of the patient DVT prophylaxis: Subcutaneous Lovenox GI Prophylaxis: Ppi PT/OT: Pending Prognosis is guarded
[2020-04-05] MEDS ORDERED: INFLUENZA VACCINE (6 MOS+) 60 MCG/0.5 ML SYRINGE IM ONE (11:47)
--- NOTE | 2020-04-05 16:48 | P.CNPUL ---
History of Present Illness Consult date: 04/05/20 Requesting physician: Von E Sheet Chief complaint: Diarrhea, cough, headache History of present illness: 64-year-old white male patient with past medical history of hypertension, hypercholesterolemia, osteoarthritis, obstructive sleep apnea syndrome, iron deficiency anemia, history of aortic valve replacement with a mechanical valve and aortic aneurysm surgical repair, macular degeneration, previous history of CVA, who presented to the emergency department on 04/04/2020 with complaints of a headache, worsening fevers over the last to 3 days with T-max of 103 while at home, did have associated body aches, diarrhea. Patient denied any overt obvious exposures to anybody with the "with 19. He denied any abdominal pain. Does have a slightly sore throat and some tickling in his throat. Does have a mild cough no phlegm production. No chest pain. He was taken Motrin and Tylenol at home for symptom control. His chest x-ray showed some mild scarring and atelectasis at the left lung base, no pulmonary consolidation. CT brain was completed showing normal head CT. His lab work was reviewed, showing normal white count of 7.3, hemoglobin 14.9, patient does have lymphopenia with a lymphocyte count 0.4, INR is 2.4, d-dimer was 1.02, electrolytes were unremarkable, B1 is 25 creatinine is 1.27, plasma lactic acid was 1, ferritin was within normal limits, LDH was 801, CRP was 215, protein acetone was elevated to 0.39. Group A strep was negative, urinalysis showed 1+ protein, trace blood, but no clear evidence of urinary tract infection. Patient has been febrile since admission for most of the day today, his T-max in last 24 hours 104.2. He is on room air, his pulse ox 96%, blood pressure stable, patient is tachycardic in the low 100s. EKG showed sinus tachycardia. Patient was started on IV hyd ration with 0.9 normal seen at a rate of 1:30 ML per hour, we started antibiotic coverage in the form of Rocephin, : 19 PCR was sent, blood cultures have been sent, influenza screen was sent. Patient is awake and alert, oriented 3, given history of present illness. Appears to be no distress, denies any shortness of breath. Review of Systems All systems: negative Constitutional: Denies chills, Denies fever Eyes: denies blurred vision, denies pain Ears, nose, mouth and throat: Denies headache, Denies sore throat Cardiovascular: Denies chest pain, Denies shortness of breath Respiratory: Reports dyspnea, Denies cough Gastrointestinal: Denies abdominal pain, Denies diarrhea, Denies nausea, Denies vomiting Musculoskeletal: Denies myalgias Integumentary: Denies pruritus, Denies rash Neurological: Denies numbness, Denies weakness Psychiatric: Denies anxiety, Denies depression Endocrine: Denies fatigue, Denies weight change Past Medical History Past Medical History: Atrial Fibrillation, Hyperlipidemia, Hypertension, Osteoarthritis (OA), Sleep Apnea/CPAP/BIPAP, Sleep Apnea/CPAP/BIPAP, Vascular Disorder Additional Past Medical History / Comment(s): Aortic dissection with surgeries, aortic valve replacement, L arm coordination issues since 2nd aortic surgery, CARLOS-no device used, DJD multiple joints/chronic pain, past lower GI bleed per past medical record but pt does not recall, benign colon polyps, History of Any Multi-Drug Resistant Organisms: MRSA Date of last positivie culture/infection: 2016 MDRO Source:: r heel Past Surgical History: Joint Replacement Additional Past Surgical History / Comment(s): Aortic dissection surgery/2nd surgery involved frozen elephant trunk over vessel, aortic valve replacement, total L knee arthroplasty, R foot fracture with past plates/pins-removed d/t infection, colonoscopies/benign polypectomies, R eye cataract removal/lens implant. Past Anesthesia/Blood Transfusion Reactions: No Reported Reaction Additional Past Anesthesia/Blood Transfusion Reaction / Comment(s): Pt has received blood without reaction with aortic vessel surgery. Smoking Status: Former smoker - Past Family History Father Family Medical History: Cancer, Congestive Heart Failure (CHF) Additional Family Medical History / Comment(s): lung CA. Father from aspiration. Mother Family Medical History: Myocardial Infarction ([place]) Additional Family Medical History / Comment(s): Possible [place]. Mother is . Brother(s) Family Medical History: Cancer Additional Family Medical History / Comment(s): throat Medications and Allergies Home Medications Medication Instructions Recorded Confirmed Type Aspirin EC [Ecotrin Low Dose] 81 mg PO DAILY 12/01/14 04/04/20 History Ferrous Sulfate [Iron (65 MG 325 mg PO DAILY 12/01/14 04/04/20 History Elemental)] Multivit-Min/FA/Lycopene/Lut 1 each PO DAILY 12/01/14 04/04/20 History [Centrum Silver Tablet] Vit C/E/Zn/Coppr/Lutein/Zeaxan 1 each PO DAILY 12/01/14 04/04/20 History [Preservision Areds 2 Softgel] ALPRAZolam [Xanax] 0.25 mg PO QAM PRN 04/11/17 04/04/20 History Cyanocobalamin (Vitamin B-12) 2,500 mcg PO DAILY 04/11/17 04/04/20 History [Vitamin B12] Warfarin Sodium [Coumadin] 4 mg PO MO@209904/11/17 04/04/20 History Warfarin Sodium [Coumadin] 6 mg PO SUTUWEFRSA@209904/11/17 04/04/20 History Chlorthalidone [Hygroton] 12.5 mg PO QAM 04/04/20 04/04/20 History Cholecalciferol [Vitamin D3 (25 2,000 unit PO DAILY 04/04/20 04/04/20 History Mcg = 1000 Iu)] Evolocumab [Repatha Sureclick] 140 mg INJ Q14D 04/04/20 04/04/20 History Losartan Potassium [Cozaar] 50 mg PO BID 04/04/20 04/04/20 History Magnesium 250 mg PO HS 04/04/20 04/04/20 History Metoprolol Tartrate [Lopressor] 25 mg PO BID 04/04/20 04/04/20 History Tadalafil [Cialis] 10 mg PO DIRECTED PRN 04/04/20 04/04/20 History Allergies Allergy/AdvReac Type Severity Reaction Status Date / Time copper Allergy Rash/Hives Verified 04/04/20 23:48 Sulfa (Sulfonamide Allergy Swelling Verified 04/04/20 23:48 Antibiotics) Physical Exam Vitals: Vital Signs Temp Pulse Pulse Resp BP BP Pulse Ox 04/05/20 15:50 101.1 F H 102 H 16 124/74 96 04/05/20 12:01 100.1 F H 106 H 18 105/61 91 L 04/05/20 10:30 102.1 F H 101 H 18 122/62 96 04/05/20 07:22 98.1 F 101 H 16 106/70 96 04/05/20 06:23 99.3 F 97 19 108/63 99 04/05/20 03:22 100.4 F H 04/05/20 02:10 104.2 F H 112 H 16 119/53 93 L 04/04/20 23:52 100.2 F H 102 H 18 108/53 96 04/04/20 22:09 110 H 18 108/58 94 L 04/04/20 20:26 103.0 F H 124 H 18 122/71 93 L Intake and Output 04/05/20 04/05/20 04/05/20 06:59 14:59 22:59 Intake Total 1330 Balance 1330 Intake: IV 1090 Sodium Chloride 0.9% 1, 1040 000 ml @ 130 mls/hr IV . Q7H42M [facility] Rx#:[id number] cefTRIAXone 1 gm In 50 Sodium Chloride 0.9% 50 ml @ 100 mls/hr IVPB Q24HR [facility] Rx#:[id number] Oral 240 Other: Weight 90.718 kg 90.718 kg GENERAL EXAM: Alert, very pleasant, 64-year-old white male on room air, with a pulse ox of 96%, comfortable in no apparent distress. HEAD: Normocephalic/atraumatic. EYES: Normal reaction of pupils, equal size. Conjunctiva pink, sclera white. NOSE: Clear with pink turbinates. THROAT: No erythema or exudates. NECK: No masses, no JVD, no thyroid enlargement, no adenopathy. CHEST: No chest wall deformity. Symmetrical expansion. LUNGS: Equal air entry with no crackles, wheeze, rhonchi or dullness. CVS: Regular rate and rhythm, normal S1 and S2, no gallops, no murmurs, no rubs ABDOMEN: Soft, nontender. No hepatosplenomegaly, normal bowel sounds, no guarding or rigidity. EXTREMITIES: No clubbing, no edema, no cyanosis, 2+ pulses and upper and lower extremities. MUSCULOSKELETAL: Muscle strength and tone normal. SPINE: No scoliosis or deformity SKIN: No rashes CENTRAL NERVOUS SYSTEM: Alert and oriented -3. No focal deficits, tone is normal in all 4 extremities. PSYCHIATRIC: Alert and oriented -3. Appropriate affect. Intact judgment and insight. Results - Laboratory Findings CBC and BMP: 04/04/20 21:53 04/04/20 21:53 PT/INR, D-dimer PT 22.9 sec (9.0-12.0) H 04/04/20 21:53 INR 2.4 (<1.2) H 04/04/20 21:53 D-Dimer 1.02 mg/L FEU (<0.60) H 04/04/20 21:53 Abnormal lab findings: Abnormal Labs 04/04/20 04/04/20 04/04/20 21:53 21:53 21:53 Lymphocytes # 0.4 L PT 22.9 H INR 2.4 H APTT 39.8 H D-Dimer 1.02 H Sodium 136 L BUN 25 H Creatinine 1.27 H Glucose 118 H Lactate Dehydrogenase 801 H C-Reactive Protein 215.5 H Procalcitonin Urine Protein Urine Blood Urine RBC Urine Bacteria Hyaline Casts Urine Mucus 04/04/20 04/04/20 21:53 22:05 Lymphocytes # PT INR APTT D-Dimer Sodium BUN Creatinine Glucose Lactate Dehydrogenase C-Reactive Protein Procalcitonin 0.39 H Urine Protein 1+ H Urine Blood Trace H Urine RBC 6 H Urine Bacteria Rare H Hyaline Casts 86 H Urine Mucus Moderate H - Diagnostic Findings Chest x-ray: report reviewed, image reviewed CT scan - chest: report reviewed, image reviewed Additional studies: EKG reviewed Assessment and Plan Plan: Assessment: #1. Acute febrile illness with symptoms of body aches, limited cough, sore th roat, diarrhea, and headaches, rule out Covid 19. Influenza screen is pending, group A strep was negative. Chest x-ray showed mild scarring and atelectasis at the left lung base, no pulmonary consolidation. Rule out sepsis #2. Elevated pro-calcitonin suggesting possibility of bacterial infection with unclear source, he was empirically covered with Rocephin #3. Increased inflammatory markers including LDH and CRP, rule out possibility of Covid 19 #4. Elevated d-dimer, with no CTA chest evidence of pulmonary embolism #5. History of aortic valve replacement with a mechanical valve on Coumadin therapy #6. History of aortic aneurysm with history of aortic dissection requiring surgical repair #7. History of MRSA infection in the wound on the right heel in 2018 #8. History of obstructive sleep apnea on CPAP therapy #9. History of hypertension #10. Hypercholesterolemia #11. Former smoker Plan: We placed the patient on Rocephin, will await the results of the Covid 19 te sting, influenza testing, blood cultures have been sent, vital signs are stable, no altered mentation. Continue with gentle IV hydration, continue with Imodium. Patient denies any recent antibiotic therapy. Obtain stool for C. diff, will obtain follow-up blood work in the morning, CBC, electrolytes and renal profile. Chest x-ray has been reviewed, CT chest have been reviewed showing no acute pulmonary process and some limited left lower base scarring. We'll continue to follow and make further recommendations I performed a history & physical examination of the patient and discussed their management with my nurse practitioner, Aicha Gavin. I reviewed the nurse practitioner's note and agree with the documented findings and plan of care. Lung sounds are positive for diminished breath sounds. The findings and the impression was discussed with the patient. I attest to the documentation by the nurse practitioner. Time with Patient: Greater than 30
[2020-04-05] MEDS ORDERED: WARFARIN 3 MG TAB PO ONE (18:00)
[2020-04-05] MEDS ORDERED: ALPRAZolam 0.25 MG TAB PO PRN (18:38)
[2020-04-05] MEDS: IBUPROFEN 400 MG TAB PO PRN (20:17)
[2020-04-05] MEDS: METOPROLOL TARTRATE 25 MG TAB PO SCH (20:17)
[2020-04-05] MEDS: MAGNESIUM OXIDE 400 MG TAB PO SCH (20:17)
[2020-04-05] MEDS ORDERED: NON FORMULARY DRUG (Warfarin Sodium [Coumadin] 4 MG Tablet) PO SCH (21:00)
[2020-04-05] MEDS: ALPRAZolam 0.25 MG TAB PO PRN (22:35)
[2020-04-05] MEDS: LOPERAMIDE 2 MG CAP PO PRN (22:36)
[2020-04-06] MEDS: SODIUM CHLORIDE 0.9% 1,000 ML IV SCH ×2 (00:37→09:03)
[2020-04-06] MEDS: IBUPROFEN 400 MG TAB PO PRN (03:29)
[2020-04-06] MEDS: LOPERAMIDE 2 MG CAP PO PRN (03:30)
[2020-04-06] MEDS ORDERED: LEVOFLOXACIN 750MG-D5W PMX 750 MG in DEXTROSE/WATER 1 150ML.BAG IVPB STA (08:44)
--- NOTE | 2020-04-06 08:50 | P.CONS ---
History of Present Illness - Reason for Consult Consult date: 04/05/20 Fever Requesting physician: Von E Sheet - Chief Complaint Fever x 3 days - History of Present Illness Patient is 64 year old male presenting to the ER at [facility] last night for evaluation of fever of 2 days' duration, the patient complaining of some sore throat and bodyaches the patient denies having any nausea no vomiting no abdominal pain did have some diarrhea patient did have cough which is mild in intensity and dry in nature denies having any pleuritic chest pain as well as diarrhea the patient did have a 2 episodes per day with no blood or mucus in the stools denies having any recent symptoms of boarding or frequency with May the patient was evaluated by the physician on arrival to the ER, the patient did have a fever of 103F he was tachycardic his white count was normal and did have a lymphopenia, the patient liver enzymes are normal LDH and CRP was elevated as well as pro-calcitonin, urine has been negative, downey PCR is currently pending, patient had did have chest x-ray with some mild scarring and atelectasis lung bases, the patient did have elevated d-dimer for which the patient did have CT and developed chills and was negative for PE and did not show any consultation patient has been empirically started on Rocephin 1 g daily and infectious disease was consulted for further management Review of Systems Positive point has been mentioned in the HPI rest of the systems are negative Past Medical History Past Medical History: Atrial Fibrillation, Hyperlipidemia, Hypertension, Osteoarthritis (OA), Sleep Apnea/CPAP/BIPAP, Sleep Apnea/CPAP/BIPAP, Vascular Disorder Additional Past Medical History / Comment(s): Aortic dissection with surgeries, aortic valve replacement, L arm coordination issues since 2nd aortic surgery, CARLOS-no device used, DJD multiple joints/chronic pain, past lower GI bleed per past medical record but pt does not recall, benign colon polyps, History of Any Multi-Drug Resistant Organisms: MRSA Year Discovered:: 2017 MDRO Source:: r heel Past Surgical History: Joint Replacement Additional Past Surgical History / Comment(s): Aortic dissection surgery/2nd romel damian involved frozen elephant trunk over vessel, aortic valve replacement, total L knee arthroplasty, R foot fracture with past plates/pins-removed d/t infection, colonoscopies/benign polypectomies, R eye cataract removal/lens implant. Past Anesthesia/Blood Transfusion Reactions: No Reported Reaction Additional Past Anesthesia/Blood Transfusion Reaction / Comm: Pt has received blood without reaction with aortic vessel surgery. Smoking Status: Former smoker - Past Family History Father Family Medical History: Cancer, Congestive Heart Failure (CHF) Additional Family Medical History / Comment(s): lung CA. Father from aspiration. Mother Family Medical History: Myocardial Infarction (NM) Additional Family Medical History / Comment(s): Possible NM. Mother is . Brother(s) Family Medical History: Cancer Additional Family Medical History / Comment(s): throat Medications and Allergies Home Medications Medication Instructions Recorded Confirmed Type Aspirin EC [Ecotrin Low Dose] 81 mg PO DAILY 12/01/14 04/04/20 History Ferrous Sulfate [Iron (65 MG 325 mg PO DAILY 12/01/14 04/04/20 History Elemental)] Multivit-Min/FA/Lycopene/Lut 1 each PO DAILY 12/01/14 04/04/20 History [Centrum Silver Tablet] Vit C/E/Zn/Coppr/Lutein/Zeaxan 1 each PO DAILY 12/01/14 04/04/20 History [Preservision Areds 2 Softgel] ALPRAZolam [Xanax] 0.25 mg PO QAM PRN 04/11/17 04/04/20 History Cyanocobalamin (Vitamin B-12) 2,500 mcg PO DAILY 04/11/17 04/04/20 History [Vitamin B12] Warfarin Sodium [Coumadin] 4 mg PO MO@2100 04/11/17 04/04/20 History Warfarin Sodium [Coumadin] 6 mg PO SUTUWEFRSA@2100 04/11/17 04/04/20 History Chlorthalidone [Hygroton] 12.5 mg PO QAM 04/04/20 04/04/20 History Cholecalciferol [Vitamin D3 (25 2,000 unit PO DAILY 04/04/20 04/04/20 History Mcg = 1000 Iu)] Evolocumab [Repatha Sureclick] 140 mg INJ Q14D 04/04/20 04/04/20 History Losartan Potassium [Cozaar] 50 mg PO BID 04/04/20 04/04/20 History Magnesium 250 mg PO HS 04/04/20 04/04/20 History Metoprolol Tartrate [Lopressor] 25 mg PO BID 04/04/20 04/04/20 History Tadalafil [Cialis] 10 mg PO DIRECTED PRN 04/04/20 04/04/20 History Allergies Allergy/AdvReac Type Severity Reaction Status Date / Time copper Allergy Rash/Hives Verified 04/04/20 23:48 Sulfa (Sulfonamide Allergy Swelling Verified 04/04/20 23:48 Antibiotics) Physical Exam Vitals: Vital Signs Temp Pulse Pulse Resp BP BP Pulse Ox 04/06/20 04:00 98.8 F 95 18 149/80 93 L 04/06/20 00:00 101.7 F H 105 H 17 120/72 93 L 04/05/20 20:00 102.0 F H 95 18 120/80 93 L 04/05/20 17:00 99.7 F H 04/05/20 15:50 101.1 F H 102 H 16 124/74 96 04/05/20 12:01 100.1 F H 106 H 18 105/61 91 L 04/05/20 10:30 102.1 F H 101 H 18 122/62 96 Intake and Output 04/05/20 04/06/20 04/06/20 22:59 06:59 14:59 Intake Total 237 Balance 237 Intake: Oral 237 Other: Voiding Method Toilet Toilet # Voids 1 # Bowel Movements 1 1 Weight 80 kg GENERAL DESCRIPTION: Middle-aged male lying in bed, no distress. No tachypnea or accessory muscle of respiration use. HEENT: Shows Pallor , no scleral icterus. Oral mucous membrane is dry. No pharyngeal erythema or thrush NECK: Trachea central, no thyromegaly. LUNGS: Unlabored breathing. Decreased breath sounds at the base. No wheeze or crackle. HEART: S1, S2, regular rate and rhythm. No loud murmur ABDOMEN: Soft, no tenderness , guarding or rigidity, no organomegaly EXTREMITIES: No edema of feet. SKIN: No rash, no masses palpable. NEUROLOGICAL: The patient is awake, alert, oriented x3, mood and affect normal. Results CBC & Chem 7: 04/04/20 21:53 04/04/20 21:53 Labs: Microbiology - Last 24 Hours (Table) 04/04/20 21:53 Blood Culture - Preliminary Blood No Growth after 24 hours 04/04/20 21:53 Group A Strep Throat Culture - Preliminary Throat Assessment and Plan Assessment: 1-patient presented to hospital with fever did have mild headache and URI symptoms along with body aches with concern for possible viral syndrome such as influenza or downey virus infection chest x-ray and CT angiogram was negative for any consolidation patient to have a predominant GI symptoms as well and will need to rule out Legionella infection (1) Fever Current Visit: Yes Status: Acute Code(s): R50.9 - FEVER, UNSPECIFIED SNOMED Code(s): 862641396 Plan: 1- await downey PCR check nasopharyngeal swab for influenza and urine for Legionella antigen 2-continue with the Rocephin however and Levaquin 750 mg daily 3-droplet isolation and respiratory support We will follow on clinical condition and cultures to further adjust medication if needed Thank you for this consultation will follow this patient with you Time with Patient: Greater than 30
[2020-04-06 08:56] LABS: INR 1.6 (<1.2); Prothrombin Time 15.4 sec (9.0-12.0)
[2020-04-06] MEDS ORDERED: PANTOPRAZOLE 40 MG/10 ML VIAL IVP SCH (09:00)
[2020-04-06 09:01] LABS: Calcium 7.5 mg/dL (8.4-10.2); Magnesium 1.8 mg/dL (1.6-2.3); Potassium 3.4 mmol/L (3.5-5.1)
[2020-04-06] MEDS: CHOLECALCIFEROL 1,000 UNIT TAB PO SCH (09:02)
[2020-04-06] MEDS: ASPIRIN 81 MG PO SCH (09:02)
[2020-04-06] MEDS: METOPROLOL TARTRATE 25 MG TAB PO SCH ×2 (09:02→20:32)
[2020-04-06] MEDS: MULTIVITAMINS, THERA 1 EACH TAB PO SCH (09:02)
[2020-04-06] MEDS: CYANOCOBALAMIN 500 MCG TAB PO SCH (09:02)
[2020-04-06] MEDS: FERROUS SULFATE 325 MG TAB PO SCH (09:02)
[2020-04-06] MEDS: VIT A,C & E-LUTEIN-MINERALS 1 EACH TAB PO SCH (09:02)
[2020-04-06 09:06] LABS: Basophils % (A) 0 %; Eosinophils % (A) 0 %; HCT 40.5 % (39.0-53.0); HGB 13.1 gm/dL (13.0-17.5); Lymphocytes # (A) 0.5 k/uL (1.0-4.8); Lymphocytes % (A) 8 %; MCH 29.8 pg (25.0-35.0); MCHC 32.4 g/dL (31.0-37.0); MCV 91.8 fL (80.0-100.0); Mean Platelet Volume 6.9; Monocytes # (A) 0.4 k/uL (0-1.0); Monocytes % (A) 7 %; Neutrophils # (A) 4.5 k/uL (1.3-7.7); Neutrophils % (A) 83 %; Platelet Count 177 k/uL (150-450); RBC 4.42 m/uL (4.30-5.90); WBC 5.5 k/uL (3.8-10.6)
[2020-04-06] MEDS ORDERED: ALBUTEROL HFA INHALER INHALATION PRN (10:01)
--- NOTE | 2020-04-06 11:51 | P.PN ---
Subjective this is a pleasant 64 years old male with past medical history of hypertension, sleep apnea, aortic dissection status post repair, aortic valve replacement. He follows up with Dr. Martinez as his PCP, although he denies any history of lung tissue. 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 This time patient presents with fever and upper respiratory symptoms. He has a sneezing, dry cough and and generalized body aches, mainly in his muscles associated with headache has been going on for about 3 days He denies chest pain or shortness of breath, however he has significant diarrhea 1 today which was watery-like, light brown with no blood. No abdominal pain or nausea vomiting No urinary complaints He denies smoking, alcohol or illicit drugs on admission he has a fever of 104.2, patient is breathing at 16-19 breath per minute, blood pressure 106/70 and his 96% on room air. labsShowing unremarkable WBC at 7.3K, unremarkable rest of CBC,no leukopenia, INR 2.4, sodium 136, creatinine is elevated at 1.7.liver enzymes not elevated. C-reactive protein elevated at 215, pro-calcitonin is elevated at 0.39. Urinalysis is getting concentrated but not obvious source of infection. Group A strep rapid is negative Chest x-ray: There is mild scarring and atelectasis in the left lung base slightly worse than last exam. No pulmonary consolidation. CTA of the chest:no PE. Descending thoracic aortic aneurysm increased 1 cm every maximum dimension compared to exam 5 years ago. Chronic aortic dissection similar to old exam in the emergency room patient was started on ibuprofen, no antibiotics. Normal saline at 130 mL/h. 04/06/2020 Patient is awake and alert, is breathing quietly but he still feeling chest tightness little worse this morning. And breathing therapy is provided for him. No chest pain or abdominal pain or nausea vomiting. Vitas looks stable. No fever since yesterday. His WBC came back to normal 7.0, hemoglobin slightly drop to 9.2, platelets also went down to 180 2K. It looks like patient has elements of hemoglobin delusion, sodium improved to 137. Selective for an is positive. C. diff is negative. covid test is negative, influenza test is negative. Urine Legionella test is pending. Appreciate infectious disease on pulmonary team input Review of Systems CONSTITUTIONAL: No fever, no malaise, no fatigue. HEENT: No recent visual problems or hearing problems. Denied any sore throat. CARDIOVASCULAR: No orthopnea, PND, no palpitations, no syncope. PULMONARY: No shortness of breath, no cough, no hemoptysis. -GASTROINTESTINAL: positive findings as above NEUROLOGICAL: No headaches, no weakness, no numbness. HEMATOLOGICAL: Denies any bleeding or petechiae. GENITOURINARY: Denies any burning micturition, frequency, or urgency. MUSCULOSKELETAL/RHEUMATOLOGICAL: Denies any joint pain, swelling, or any muscle pain. ENDOCRINE: Denies any polyuria or polydipsia. Active Medications Generic Name Dose Route Start Last Admin Trade Name Freq PRN Reason Stop Dose Admin Acetaminophen 650 mg 04/05/20 02:13 04/05/20 22:36 Acetaminophen Tab 325 Mg Tab PO 650 mg Q6HR PRN Administration Fever and/ or Pain Albuterol Sulfate 1 puff 04/06/20 10:01 04/06/20 10:18 Albuterol Hfa Inhaler INHALATION 1 puff RT-TID PRN Administration Shortness Of Breath Or Wheezing Albuterol/Ipratropium 3 ml 04/06/20 10:01 Ipratropium-Albuterol 3 Ml Neb INHALATION RT-TID PRN Shortness Of Breath Or Wheezing Alprazolam 0.25 mg 04/05/20 20:20 04/05/20 22:35 Alprazolam 0.25 Mg Tab PO 0.25 mg DAILY PRN Administration Anxiety Aspirin 81 mg 04/06/20 09:00 04/06/20 09:02 Aspirin 81 Mg PO 81 mg DAILY SHAVONNE Administration Cholecalciferol 2,000 unit 04/06/20 09:00 04/06/20 09:02 Cholecalciferol 1,000 Unit Tab PO 2,000 unit DAILY SHAVONNE Administration Cyanocobalamin 2,500 mcg 04/06/20 09:00 04/06/20 09:02 Cyanocobalamin 500 Mcg Tab PO 2,500 mcg DAILY SHAVONNE Administration Ferrous Sulfate 325 mg 04/06/20 09:00 04/06/20 09:02 Ferrous Sulfate 325 Mg Tab PO 325 mg DAILY SHAVONNE Administration Sodium Chloride 1,000 mls @ 130 mls/hr 04/05/20 00:15 04/06/20 09:03 Saline 0.9% IV 130 mls/hr .Q7H42M SHAVONNE Administration Ceftriaxone Sodium 1 gm/ 50 mls @ 100 mls/hr 04/05/20 12:00 04/05/20 13:12 Sodium Chloride IVPB 100 mls/hr Q24HR SHAVONNE Administration Ibuprofen 400 mg 04/05/20 18:40 04/06/20 03:29 Ibuprofen 400 Mg Tab PO 400 mg Q6HR PRN Administration Pain Levofloxacin 750 mg 04/07/20 09:00 Levofloxacin 750 Mg Tab PO DAILY SHAVONNE Loperamide HCl 2 mg 04/05/20 20:10 04/06/20 03:30 Loperamide 2 Mg Cap PO 2 mg QID PRN Administration Diarrhea Magnesium Oxide 400 mg 04/05/20 21:00 04/05/20 20:17 Magnesium Oxide 400 Mg Tab PO 400 mg HS SHAVONNE Administration Metoprolol Tartrate 25 mg 04/05/20 21:00 04/06/20 09:02 Metoprolol Tartrate 25 Mg Tab PO 25 mg BID SHAVONNE Administration Miscellaneous Information 0 each 04/05/20 14:23 Warfarin Per Pharmacy MISCELLANE DIRECTED PRN per protocol Multivitamins 1 each 04/06/20 09:00 04/06/20 09:02 Multivitamins, Thera 1 Each Tab PO 1 each DAILY SHAVONNE Administration Multivitamins/Minerals 1 each 04/06/20 09:00 04/06/20 09:02 Vit A,C & I-Jlmusv-Drdvolxp 1 Each Tab PO 1 each DAILY SHAVONNE Administration Pantoprazole Sodium 40 mg 04/07/20 09:00 Pantoprazole 40 Mg Tablet PO DAILY SHAVONNE Warfarin Sodium 6 mg 04/06/20 18:00 Warfarin 3 Mg Tab PO 04/06/20 18:01 ONCE@1800 ONE Objective - Vital Signs Vital signs: Vital Signs Temp 98.6 F 04/06/20 08:00 Pulse 109 H 04/06/20 08:00 Resp 22 04/06/20 08:00 BP 107/61 04/06/20 08:00 Pulse Ox 95 04/06/20 08:00 Intake & Output 04/05/20 04/06/20 04/06/20 18:59 06:59 18:59 Intake Total 1567 660 Balance 1567 660 Weight 90.718 kg 80 kg Intake: IV 1090 Sodium Chloride 0.9% 1, 1040 000 ml @ 130 mls/hr IV . Q7H42M [facility] Rx#:[id number] cefTRIAXone 1 gm In 50 Sodium Chloride 0.9% 50 ml @ 100 mls/hr IVPB Q24HR [facility] Rx#:[id number] Oral 477 660 Other: Voiding Method Toilet # Voids 1 1 # Bowel Movements 1 - Exam GENERAL: The patient is alert and oriented x3, not in any acute distress. Well developed, well nourished. HEENT: Pupils are round and equally reacting to light. EOMI. No scleral icterus. No conjunctival pallor. Normocephalic, atraumatic. No pharyngeal erythema. No thyromegaly. CARDIOVASCULAR: S1 and S2 present. No murmurs, rubs, or gallops. PULMONARY: Chest is clear to auscultation, no wheezing or crackles. ABDOMEN: Soft, nontender, nondistended, normoactive bowel sounds. No palpable organomegaly. MUSCULOSKELETAL: No joint swelling or deformity. EXTREMITIES: No cyanosis, clubbing, or pedal edema. NEUROLOGICAL: Gross neurological examination did not reveal any focal deficits. SKIN: No rashes. No petechiae - Labs CBC & Chem 7: 04/06/20 07:39 04/06/20 07:39 Labs: Abnormal Lab Results - Last 24 Hours (Table) 04/06/20 04/06/20 04/06/20 Range/Units 07:39 07:39 07:39 Lymphocytes # 0.5 L (1.0-4.8) k/uL PT 15.4 H (9.0-12.0) sec INR 1.6 H (<1.2) Sodium 132 L (137-145) mmol/L Potassium 3.4 L (3.5-5.1) mmol/L BUN 24 H (9-20) mg/dL Glucose 106 H (74-99) mg/dL Calcium 7.5 L (8.4-10.2) mg/dL C-Reactive Protein (<10.0) mg/L 04/06/20 Range/Units 09:14 Lymphocytes # (1.0-4.8) k/uL PT (9.0-12.0) sec INR (<1.2) Sodium (137-145) mmol/L Potassium (3.5-5.1) mmol/L BUN (9-20) mg/dL Glucose (74-99) mg/dL Calcium (8.4-10.2) mg/dL C-Reactive Protein 363.7 H (<10.0) mg/L Microbiology - Last 24 Hours (Table) 04/04/20 21:53 Blood Culture - Preliminary Blood No Growth after 24 hours 04/04/20 21:53 Group A Strep Throat Culture - Preliminary Throat Assessment and Plan Assessment: upper respiratory Tract infection, mostly viral versus others systemic inflammatory response with fever and tachycardia, no leukocytosis or tachypnea Mostly sepsis of unknown source acute kidney injury, mostly prerenal, also patient got IV contrast so we will need close monitoring Thoracic aortic aneurysm increased 1 cm from old exam with chronic aortic dissection Hypertension Sleep apnea History of aortic dissection status post repair and aortic valve replacement Plan: this is a pleasant 64 years old male who presents with fever and sepsis and URT symptoms and diarrhea. Continue with antibiotic Pulmonary and infectious disease were consulted,follow-up with their recommendation. Continue with IV fluids with close monitoring of vitals and kidney function. To avoid nephrotoxins. Monitor blood pressure and try to avoid hypotension. follow-up urine legionella test Labs and medication were reviewed.. Continue same treatment. Continue with symptomatic treatment. Resume home medication. Monitor lytes and vitals. DVT and GI prophylaxis. Further recommendations depends on the clinical course of the patient DVT prophylaxis: Subcutaneous Lovenox GI Prophylaxis: Ppi
[2020-04-06] MEDS: ACETAMINOPHEN TAB 325 MG TAB PO PRN (13:16)
[2020-04-06] MEDS ORDERED: FUROSEMIDE 10 MG/ML 4 ML VIAL IV STA (13:25)
--- NOTE | 2020-04-06 14:07 | P.PN ---
Subjective Progress Note Date: 04/06/20 Principal diagnosis: Acute febrile illness 64-year-old white male patient with past medical history of hypertension, hypercholesterolemia, osteoarthritis, obstructive sleep apnea syndrome, iron deficiency anemia, history of aortic valve replacement with a mechanical valve and aortic aneurysm surgical repair, macular degeneration, previous history of CVA, who presented to the emergency department on 04/04/2020 with complaints of a headache, worsening fevers over the last to 3 days with T-max of 103 while at home, did have associated body aches, diarrhea. Patient denied any overt obvious exposures to anybody with the "with 19. He denied any abdominal pain. Does have a slightly sore throat and some tickling in his throat. Does have a mild cough no phlegm production. No chest pain. He was taken Motrin and Tylenol at home for symptom control. His chest x-ray showed some mild scarring and atelectasis at the left lung base, no pulmonary consolidation. CT brain was completed showing normal head CT. His lab work was reviewed, showing normal white count of 7.3, hemoglobin 14.9, patient does have lymphopenia with a lymphocyte count 0.4, INR is 2.4, d-dimer was 1.02, electrolytes were unremarkable, B1 is 25 creatinine is 1.27, plasma lactic acid was 1, ferritin was within normal limits, LDH was 801, CRP was 215, protein acetone was elevated to 0.39. Group A strep was negative, urinalysis showed 1+ protein, trace blood, but no clear evidence of urinary tract infection. Patient has been febrile since admission for most of the day today, his T-max in last 24 hours 104.2. He is on room air, his pulse ox 96%, blood pressure stable, patient is tachycardic in the low 100s. EKG showed sinus tachycardia. Patient was started on IV hydration with 0.9 normal seen at a rate of 1:30 ML per hour, we started antibiotic coverage in the form of Rocephin, : 19 PCR was sent, blood cultures have been sent, influenza screen was sent. Patient is awake and alert, oriented 3, given history of present illness. Appears to be no distress, denies any shortness of breath. The patient is seen today 04/06/2020 in follow-up on the selective care unit. He is currently sitting up at the bedside. Awake and alert in no acute distress. He is maintaining O2 saturation in the mid 90s on room air. He's been afebrile. White count 5.5. Hemoglobin 13.1. INR 1.6. Sodium 132. Potassium 3.4. Creatinine 1.18. C-reactive protein 363. C. difficile screen negative. Current virus by PCR negative. Influenza A/B negative. Rapid strep negative. Blood culture reveals no growth to date. He is currently on ceftriaxone. Levaquin has been added. Objective - Vital Signs Vital signs: Vital Signs Temp 99.6 F 04/06/20 12:00 Pulse 117 H 04/06/20 12:00 Resp 24 04/06/20 12:00 BP 143/72 04/06/20 12:00 Pulse Ox 88 L 04/06/20 12:00 Intake & Output 04/05/20 04/06/20 04/06/20 18:59 06:59 18:59 Intake Total 1567 660 Balance 1567 660 Weight 90.718 kg 80 kg Intake: IV 1090 Sodium Chloride 0.9% 1, 1040 000 ml @ 130 mls/hr IV . Q7H42M [facility] Rx#:[id number] cefTRIAXone 1 gm In 50 Sodium Chloride 0.9% 50 ml @ 100 mls/hr IVPB Q24HR [facility] Rx#:[id number] Oral [id number] 660 Other: Voiding Method Toilet # Voids 1 1 # Bowel Movements 1 - Exam GENERAL EXAM: Alert, active, maintaining O2 saturation the mid 90s on room air comfortable in no apparent distress. HEAD: Normocephalic. EYES: Normal reaction of pupils, equal size. NOSE: Clear with pink turbinates. THROAT: No erythema or exudates. NECK: No masses, no JVD. CHEST: No chest wall deformity. LUNGS: Equal air entry with crackles in the bilateral posterior bases. CVS: S1 and S2 normal with no audible murmur, regular rhythm. ABDOMEN: No hepatosplenomegaly, normal bowel sounds, no guarding or rigidity. SPINE: No scoliosis or deformity SKIN: No rashes CENTRAL NERVOUS SYSTEM: No focal deficits, tone is normal in all 4 extremities. EXTREMITIES: There is no peripheral edema. No clubbing, no cyanosis. Peripheral pulses are intact. - Labs CBC & Chem 7: 04/06/20 07:39 04/06/20 07:39 Labs: Abnormal Lab Results - Last 24 Hours (Table) 04/06/20 04/06/20 04/06/20 Range/Units 07:39 07:39 07:39 Lymphocytes # 0.5 L (1.0-4.8) k/uL PT 15.4 H (9.0-12.0) sec INR 1.6 H (<1.2) Sodium 132 L (137-145) mmol/L Potassium 3.4 L (3.5-5.1) mmol/L BUN 24 H (9-20) mg/dL Glucose 106 H (74-99) mg/dL Calcium 7.5 L (8.4-10.2) mg/dL C-Reactive Protein (<10.0) mg/L 04/06/20 Range/Units 09:14 Lymphocytes # (1.0-4.8) k/uL PT (9.0-12.0) sec INR (<1.2) Sodium (137-145) mmol/L Potassium (3.5-5.1) mmol/L BUN (9-20) mg/dL Glucose (74-99) mg/dL Calcium (8.4-10.2) mg/dL C-Reactive Protein 363.7 H (<10.0) mg/L Microbiology - Last 24 Hours (Table) 04/04/20 21:53 Blood Culture - Preliminary Blood No Growth after 24 hours 04/04/20 21:53 Group A Strep Throat Culture - Preliminary Throat Assessment and Plan Assessment: #1. Acute febrile illness with symptoms of body aches, limited cough, sore throat, diarrhea, and headaches, rule out Covid 19. Influenza screen is pending, group A strep was negative. Chest x-ray showed mild scarring and atelectasis at the left lung base, no pulmonary consolidation. Rule out sepsis #2. Elevated pro-calcitonin suggesting possibility of bacterial infection with unclear source, he was empirically covered with Rocephin #3. Increased inflammatory markers including LDH and CRP, rule out possibility of Covid 19 #4. Elevated d-dimer, with no CTA chest evidence of pulmonary embolism #5. History of aortic valve replacement with a mechanical valve on Coumadin therapy #6. History of aortic aneurysm with history of aortic dissection requiring surgical repair #7. History of MRSA infection in the wound on the right heel in 2018 #8. History of obstructive sleep apnea on CPAP therapy #9. History of hypertension #10. Hypercholesterolemia #11. Former smoker Plan: The patient was seen and evaluated by Dr. Hernandez Continue the current treatment plan Obtain follow-up chest x-ray Legionella antigen pending Follow-up pro-calcitonin pending Check pro BNP level Lasix 40 mg IVP x 1 Decrease IV fluids Titrate FiO2 as tolerated to maintain O2 saturations greater than 92% We will continue to follow and make further recommendations based on his clinical status I, the cosigning physician, performed a history & physical examination of the patient. Lungs sounds crackles in the bilateral posterior bases. Maintaining good O2 saturations in the 90s on room air. I discussed the assessment and plan of care with my nurse practitioner, Jessica Silva. I attest to the above note as dictated by her.
[2020-04-06] MEDS: ALBUTEROL HFA INHALER INHALATION PRN ×2 (15:50→21:00)
--- NOTE | 2020-04-06 16:07 | XR ---
EXAMINATION TYPE: XR chest 2V DATE OF EXAM: 04/06/2020 CLINICAL HISTORY: Shortness of breath, fever, cough TECHNIQUE: Frontal and lateral views of the chest are obtained. COMPARISON: 04/04/2020 chest radiograph FINDINGS: Elevation of the right hemidiaphragm is increased versus 04/04/2020. Sternotomy wires, yelitza vular prosthesis, aortic arch and descending thoracic aortic stent graft. Subsegmental atelectasis ve rsus scarring of the left lung base unchanged. The cardiomediastinal silhouette is within normal limi ts for size. Pulmonary vasculature is normal. There is no focal air space opacity, pleural effusion, or pneumothorax seen. Degenerative changes of the spine. Surgical clips over the right axilla. IMPRESSION: Elevation of the right hemidiaphragm is increased versus 04/04/2020. Findings may represe nt component of right middle lobe atelectasis.
[2020-04-06] MEDS ORDERED: WARFARIN 3 MG TAB PO ONE ×2 (18:00→20:30)
--- NOTE | 2020-04-06 19:49 | PN ---
PROGRESS NOTE DATE OF SERVICE: 04/06/2020 REASON FOR FOLLOWUP: Fever and pneumonia. INTERVAL HISTORY: The patient's overall fever pattern has improved. Last temperature was around midnight of 101.7. No fever has been recorded since then. The patient overall is feeling better. The patient is breathing more comfortably. He continues to have a cough, though decreased in intensity, not bringing up any sputum. No chest pain. No abdominal pain. Diarrhea has decreased. PHYSICAL EXAMINATION: Blood pressure 143/72 with a pulse of 117, temperature 99.6. He is 95% on 2 L nasal cannula. General description is a middle-aged male up in the room in no distress. RESPIRATORY SYSTEM: Unlabored breathing. Coarse breath sounds bilaterally. No wheeze. HEART: S1, S2. Regular rate and rhythm. ABDOMEN: Soft. No tenderness. LABS/IMAGING: Hemoglobin is 13.1, white count 5.5. He did have lymphopenia. CRP is slightly elevated as well as the procalcitonin. Jordan PCR came back negative. Urine for Legionella antigen was requested, currently pending. Chest x-ray is suspicious for right middle lobe atelectasis. DIAGNOSTIC IMPRESSION AND PLAN: Patient admitted to hospital with a fever with concern for pneumonia, possible community-acquired bacterial in view of elevated procalcitonin. Patient's fever responded to Rocephin and Levaquin; to continue and wait for the urine for Legionella to finalize. Will monitor his clinical course closely. MMAUREAL / IJN: [id number] /
[2020-04-06] MEDS: MAGNESIUM OXIDE 400 MG TAB PO SCH (20:32)
[2020-04-06] MEDS: ALPRAZolam 0.25 MG TAB PO PRN (22:13)
[2020-04-07] MEDS: ACETAMINOPHEN TAB 325 MG TAB PO PRN ×2 (03:10→10:02)
[2020-04-07] MEDS: LOPERAMIDE 2 MG CAP PO PRN ×2 (03:10→10:02)
[2020-04-07] MEDS: ALBUTEROL HFA INHALER INHALATION PRN ×4 (08:20→19:35)
[2020-04-07 08:46] LABS: African American GFR (CKD) >90 (>60 ml/min/1.73 sqM); Anion Gap 7 mmol/L; Blood Urea Nitrogen 19 mg/dL (9-20); Calcium 8.4 mg/dL (8.4-10.2); Carbon Dioxide 28 mmol/L (22-30); Chloride 99 mmol/L (98-107); Glucose 121 mg/dL (74-99); Non-African American GFR(CKD) 80 (>60 ml/min/1.73 sqM); Potassium 3.5 mmol/L (3.5-5.1); Sodium 134 mmol/L (137-145)
[2020-04-07 08:48] LABS: Basophils % (A) 0 %; Eosinophils # (A) 0.1 k/uL (0-0.7); Eosinophils % (A) 1 %; HCT 42.1 % (39.0-53.0); HGB 13.6 gm/dL (13.0-17.5); Lymphocytes # (A) 1.1 k/uL (1.0-4.8); Lymphocytes % (A) 17 %; MCH 29.3 pg (25.0-35.0); MCHC 32.4 g/dL (31.0-37.0); MCV 90.4 fL (80.0-100.0); Mean Platelet Volume 6.6; Monocytes # (A) 0.5 k/uL (0-1.0); Monocytes % (A) 8 %; Neutrophils # (A) 4.6 k/uL (1.3-7.7); Neutrophils % (A) 71 %; Platelet Count 220 k/uL (150-450); RBC 4.66 m/uL (4.30-5.90); RDW 12.9 % (11.5-15.5); WBC 6.6 k/uL (3.8-10.6)
[2020-04-07 08:51] LABS: INR 1.8 (<1.2); Prothrombin Time 17.6 sec (9.0-12.0)
[2020-04-07] MEDS: MULTIVITAMINS, THERA 1 EACH TAB PO SCH (10:00)
[2020-04-07] MEDS: FERROUS SULFATE 325 MG TAB PO SCH (10:00)
[2020-04-07] MEDS: METOPROLOL TARTRATE 25 MG TAB PO SCH ×2 (10:01→21:04)
[2020-04-07] MEDS: LEVOFLOXACIN 750 MG TAB PO SCH (10:01)
[2020-04-07] MEDS: ASPIRIN 81 MG PO SCH (10:01)
[2020-04-07] MEDS: CHOLECALCIFEROL 1,000 UNIT TAB PO SCH (10:01)
[2020-04-07] MEDS: VIT A,C & E-LUTEIN-MINERALS 1 EACH TAB PO SCH (10:01)
[2020-04-07] MEDS: CYANOCOBALAMIN 500 MCG TAB PO SCH (10:02)
[2020-04-07] MEDS: PANTOPRAZOLE 40 MG TABLET PO SCH (10:02)
--- NOTE | 2020-04-07 12:54 | P.PN ---
Subjective Progress Note Date: 04/07/20 Principal diagnosis: Acute febrile illness 64-year-old white male patient with past medical history of hypertension, hypercholesterolemia, osteoarthritis, obstructive sleep apnea syndrome, iron deficiency anemia, history of aortic valve replacement with a mechanical valve and aortic aneurysm surgical repair, macular degeneration, previous history of CVA, who presented to the emergency department on 04/04/2020 with complaints of a headache, worsening fevers over the last to 3 days with T-max of 103 while at home, did have associated body aches, diarrhea. Patient denied any overt obvious exposures to anybody with the "with 19. He denied any abdominal pain. Does have a slightly sore throat and some tickling in his throat. Does have a mild cough no phlegm production. No chest pain. He was taken Motrin and Tylenol at home for symptom control. His chest x-ray showed some mild scarring and atelectasis at the left lung base, no pulmonary consolidation. CT brain was completed showing normal head CT. His lab work was reviewed, showing normal white count of 7.3, hemoglobin 14.9, patient does have lymphopenia with a lymphocyte count 0.4, INR is 2.4, d-dimer was 1.02, electrolytes were unremarkable, B1 is 25 creatinine is 1.27, plasma lactic acid was 1, ferritin was within normal limits, LDH was 801, CRP was 215, protein acetone was elevated to 0.39. Group A strep was negative, urinalysis showed 1+ protein, trace blood, but no clear evidence of urinary tract infection. Patient has been febrile since admission for most of the day today, his T-max in last 24 hours 104.2. He is on room air, his pulse ox 96%, blood pressure stable, patient is tachycardic in the low 100s. EKG showed sinus tachycardia. Patient was started on IV hydration with 0.9 normal seen at a rate of 1:30 ML per hour, we started antibiotic coverage in the form of Rocephin, : 19 PCR was sent, blood cultures have been sent, influenza screen was sent. Patient is awake and alert, oriented 3, given history of present illness. Appears to be no distress, denies any shortness of breath. The patient is seen today 04/06/2020 in follow-up on the selective care unit. He is currently sitting up at the bedside. Awake and alert in no acute distress. He is maintaining O2 saturation in the mid 90s on room air. He's been afebrile. White count 5.5. Hemoglobin 13.1. INR 1.6. Sodium 132. Potassium 3.4. Creatinine 1.18. C-reactive protein 363. C. difficile screen negative. Current virus by PCR negative. Influenza A/B negative. Rapid strep negative. Blood culture reveals no growth to date. He is currently on ceftriaxone. Levaquin has been added. The patient is seen today 04/07/2020 in follow-up on selective care unit. He is currently up ambulating in the room. Awake and alert in no acute distress. Breathing bit easier today compared to yesterday. Continues with a low grade temperature currently 99.4. Calcitonin 0.9. CRP elevated. Microbiology revealing no growth thus far. White count 6.6. Hemoglobin 13.6. INR 1.8. Sodium 134. Potassium 3.5. Creatinine 0.99. Urine legionella antigen negative. He remains on ceftriaxone and Levaquin. Objective - Vital Signs Vital signs: Vital Signs Temp 99.4 F 04/07/20 08:30 Pulse 103 H 04/07/20 08:30 Resp 19 04/07/20 08:30 BP 123/78 04/07/20 08:30 Pulse Ox 95 04/07/20 08:30 Intake & Output 04/06/20 04/07/20 04/07/20 18:59 06:59 18:59 Intake Total 900 540 180 Balance 900 540 180 Intake: IV 60 Sodium Chloride 0.9% 1, 60 000 ml @ 130 mls/hr IV . Q7H42M [facility] Rx#:[id number] Oral 900 480 180 Other: Voiding Method Toilet # Voids 1 3 1 - Exam GENERAL EXAM: Alert, active, maintaining O2 saturation the mid 90s on room air comfortable in no apparent distress. HEAD: Normocephalic. EYES: Normal reaction of pupils, equal size. NOSE: Clear with pink turbinates. THROAT: No erythema or exudates. NECK: No masses, no JVD. CHEST: No chest wall deformity. LUNGS: Equal air entry with crackles in the bilateral posterior bases. CVS: S1 and S2 normal with no audible murmur, regular rhythm. ABDOMEN: No hepatosplenomegaly, normal bowel sounds, no guarding or rigidity. SPINE: No scoliosis or deformity SKIN: No rashes CENTRAL NERVOUS SYSTEM: No focal deficits, tone is normal in all 4 extremities. EXTREMITIES: There is no peripheral edema. No clubbing, no cyanosis. Peripheral pulses are intact. - Labs CBC & Chem 7: 04/07/20 07:55 04/07/20 07:55 Labs: Abnormal Lab Results - Last 24 Hours (Table) 04/06/20 04/07/20 04/07/20 Range/Units 09:14 07:55 07:55 PT 17.6 H (9.0-12.0) sec INR 1.8 H (<1.2) Sodium 134 L (137-145) mmol/L Glucose 121 H (74-99) mg/dL Procalcitonin 0.95 H (0.02-0.09) ng/mL Microbiology - Last 24 Hours (Table) 04/06/20 09:14 Blood Culture - Preliminary Blood No Growth after 24 hours 04/04/20 21:53 Group A Strep Throat Culture - Final Throat 04/04/20 21:53 Blood Culture - Preliminary Blood No Growth after 48 hours Assessment and Plan Assessment: #1. Acute febrile illness with symptoms of body aches, limited cough, sore throat, diarrhea, and headaches, ruled out Covid 19. Influenza screen negative, group A strep was negative. Legionella antigen negative. C. difficile screen negative. Chest x-ray showed mild scarring and atelectasis at the left lung base, no pulmonary consolidation. #2. Elevated pro-calcitonin suggesting possibility of bacterial infection with unclear source, he was empirically covered with Rocephin and Levaquin #3. Increased inflammatory markers including LDH and CRP, rule out possibility of Covid 19 #4. Elevated d-dimer, with no CTA chest evidence of pulmonary embolism #5. History of aortic valve replacement with a mechanical valve on Coumadin th #6. History of aortic aneurysm with history of aortic dissection requiring surgical repair #7. History of MRSA infection in the wound on the right heel in 2018 #8. History of obstructive sleep apnea on CPAP therapy #9. History of hypertension #10. Hypercholesterolemia #11. Former smoker Plan: The patient was seen and evaluated by Dr. Hernandez Continue the current treatment plan Continues with low-grade temperature Unclear source of infection Infectious diseases on the case. Continue ceftriaxone and Levaquin We will continue to follow and make further recommendations based on his clinical status I, the cosigning physician, performed a history & physical examination of the patient. Lungs sounds crackles in the bilateral posterior bases. Maintaining good O2 saturations in the 90s on room air. I discussed the assessment and plan of care with my nurse practitioner, Jessica Silva. I attest to the above note as dictated by her.
[2020-04-07] MEDS: guaiFENesin-DM 100-10MG/5ML 10 ML CUP PO SCH ×3 (14:03→23:46)
[2020-04-07 16:04] LABS: Appearance,Urine Clear (Clear); Bilirubin,Urine Negative (Negative); Blood,Urine Small (Negative); Color,Urine Yellow; Glucose,Urine (UA) Negative (Negative); Hyaline Casts,Urine 3 /lpf (0-2); Ketones,Urine Negative (Negative); Leukocyte Esterase,Urine Negative (Negative); Mucus,Urine Rare /hpf; Nitrite,Urine Negative (Negative); Protein,Urine 1+ (Negative); RBC,Urine 4 /hpf (0-5); Specific Gravity,Urine 1.018 (1.001-1.035); Urobilinogen,Urine <2.0 mg/dL (<2.0); WBC,Urine 1 /hpf (0-5)
[2020-04-07] MEDS: CHOLESTYRAMINE (WITH SUGAR) 4 GM PACKET PO SCH (17:00)
[2020-04-07] MEDS: metroNIDAZOLE 500 MG TAB PO SCH ×2 (17:01→22:02)
[2020-04-07] MEDS ORDERED: WARFARIN 2 MG TAB PO ONE (18:00)
[2020-04-07] MEDS ORDERED: WARFARIN 3 MG TAB PO ONE (19:45)
--- NOTE | 2020-04-07 19:48 | P.PN ---
Subjective this is a pleasant 64 years old male with past medical history of hypertension, sleep apnea, aortic dissection status post repair, aortic valve replacement. He follows up with Dr. Martinez as his PCP, although he denies any history of lung tissue. 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 This time patient presents with fever and upper respiratory symptoms. He has a sneezing, dry cough and and generalized body aches, mainly in his muscles associated with headache has been going on for about 3 days He denies chest pain or shortness of breath, however he has significant diarrhea 1 today which was watery-like, light brown with no blood. No abdominal pain or nausea vomiting No urinary complaints He denies smoking, alcohol or illicit drugs on admission he has a fever of 104.2, patient is breathing at 16-19 breath per minute, blood pressure 106/70 and his 96% on room air. labsShowing unremarkable WBC at 7.3K, unremarkable rest of CBC,no leukopenia, INR 2.4, sodium 136, creatinine is elevated at 1.7.liver enzymes not elevated. C-reactive protein elevated at 215, pro-calcitonin is elevated at 0.39. Urinalysis is getting concentrated but not obvious source of infection. Group A strep rapid is negative Chest x-ray: There is mild scarring and atelectasis in the left lung base slightly worse than last exam. No pulmonary consolidation. CTA of the chest:no PE. Descending thoracic aortic aneurysm increased 1 cm every maximum dimension compared to exam 5 years ago. Chronic aortic dissection similar to old exam in the emergency room patient was started on ibuprofen, no antibiotics. Normal saline at 130 mL/h. 04/06/2020 Patient is awake and alert, is breathing quietly but he still feeling chest tightness little worse this morning. And breathing therapy is provided for him. No chest pain or abdominal pain or nausea vomiting. Vitas looks stable. No fever since yesterday. His WBC came back to normal 7.0, hemoglobin slightly drop to 9.2, platelets also went down to 180 2K. It looks like patient has elements of hemoglobin delusion, sodium improved to 137. Selective for an is positive. C. diff is negative. covid test is negative, influenza test is negative. Urine Legionella test is pending. Appreciate infectious disease on pulmonary team input 04/07/2020 Patient sitting at bedside looks not in distress breathing quietly is still complaining of from significant coughing, Robitussin is added. This still have some abdominal discomfort and ongoing diarrhea, temperature today was low-grade fever only at 99.4. Labs looks stable and with no leukocytosis. Urine Legionella is negative. His INR today is went up to 1.8. As well as pro-calcitonin is increased, infectious disease team on the case and he switch his antibiotic from subtraction and Flagyl to Levaquin and Flagyl. We'll keep monitoring INR very closely as well as a lot of per meters. Patient got 4 mg of warfarin tonight. Consult cardiothoracic surgery for his history of aortic aneurysm status post repair Review of Systems CONSTITUTIONAL: No fever, no malaise, no fatigue. HEENT: No recent visual problems or hearing problems. Denied any sore throat. CARDIOVASCULAR: No orthopnea, PND, no palpitations, no syncope. PULMONARY: No shortness of breath, no cough, no hemoptysis. -GASTROINTESTINAL: positive findings as above NEUROLOGICAL: No headaches, no weakness, no numbness. HEMATOLOGICAL: Denies any bleeding or petechiae. GENITOURINARY: Denies any burning micturition, frequency, or urgency. MUSCULOSKELETAL/RHEUMATOLOGICAL: Denies any joint pain, swelling, or any muscle pain. ENDOCRINE: Denies any polyuria or polydipsia. Active Medications Generic Name Dose Route Start Last Admin Trade Name Freq PRN Reason Stop Dose Admin Acetaminophen 650 mg 04/05/20 02:13 04/07/20 10:02 Acetaminophen Tab 325 Mg Tab PO 650 mg Q6HR PRN Administration Fever and/ or Pain Albuterol Sulfate 2 puff 04/06/20 12:34 04/07/20 19:35 Albuterol Hfa Inhaler INHALATION 2 puff RT-QID PRN Administration Shortness Of Breath Or Wheezing Albuterol/Ipratropium 3 ml 04/06/20 10:01 Ipratropium-Albuterol 3 Ml Neb INHALATION RT-TID PRN Shortness Of Breath Or Wheezing Alprazolam 0.25 mg 04/05/20 20:20 04/06/20 22:13 Alprazolam 0.25 Mg Tab PO 0.25 mg DAILY PRN Administration Anxiety Aspirin 81 mg 04/06/20 09:00 04/07/20 10:01 Aspirin 81 Mg PO 81 mg DAILY [facility] Administration Cholecalciferol 2,000 unit 04/06/20 09:00 04/07/20 10:01 Cholecalciferol 1,000 Unit Tab PO 2,000 unit DAILY [facility] Administration Cholestyramine Resin 4 gm 04/07/20 18:00 04/07/20 17:00 Cholestyramine (With Sugar) 4 Gm Packet PO 4 gm BID@1000,1800 [facility] Administration Cyanocobalamin 2,500 mcg 04/06/20 09:00 04/07/20 10:02 Cyanocobalamin 500 Mcg Tab PO 2,500 mcg DAILY [facility] Administration Ferrous Sulfate 325 mg 04/06/20 09:00 04/07/20 10:00 Ferrous Sulfate 325 Mg Tab PO 325 mg DAILY [facility] Administration Guaifenesin/Dextromethorphan 10 ml 04/07/20 12:00 04/07/20 17:01 Guaifenesin-Dm 100-10mg/5ml 10 Ml Cup PO 10 ml Q6H [facility] Administration Ibuprofen 400 mg 04/05/20 18:40 04/06/20 03:29 Ibuprofen 400 Mg Tab PO 400 mg Q6HR PRN Administration Pain Levofloxacin 750 mg 04/07/20 09:00 04/07/20 10:01 Levofloxacin 750 Mg Tab PO 750 mg DAILY [facility] Administration Loperamide HCl 2 mg 04/05/20 20:10 04/07/20 10:02 Loperamide 2 Mg Cap PO 2 mg QID PRN Administration Diarrhea Magnesium Oxide 400 mg 04/05/20 21:00 04/06/20 20:32 Magnesium Oxide 400 Mg Tab PO 400 mg HS [facility] Administration Metoprolol Tartrate 25 mg 04/05/20 21:00 04/07/20 10:01 Metoprolol Tartrate 25 Mg Tab PO 25 mg BID [facility] Administration Metronidazole 500 mg 04/07/20 16:30 04/07/20 17:01 Metronidazole 500 Mg Tab PO 500 mg TID [facility] Administration Miscellaneous Information 0 each 04/05/20 14:23 Warfarin Per Pharmacy MISCELLANE DIRECTED PRN per protocol Multivitamins 1 each 04/06/20 09:00 04/07/20 10:00 Multivitamins, Thera 1 Each Tab PO 1 each DAILY [facility] Administration Multivitamins/Minerals 1 each 04/06/20 09:00 04/07/20 10:01 Vit A,C & H-Lsibgu-Cekbcdzm 1 Each Tab PO 1 each DAILY [facility] Administration Pantoprazole Sodium 40 mg 04/07/20 09:00 04/07/20 10:02 Pantoprazole 40 Mg Tablet PO 40 mg DAILY SH[facility] Administration Objective - Vital Signs Vital signs: Vital Signs Temp 98.7 F 04/07/20 12:00 Pulse 98 04/07/20 12:00 Resp 18 04/07/20 12:00 BP 130/72 04/07/20 12:00 Pulse Ox 97 04/07/20 12:00 Intake & Output 04/06/20 04/07/20 04/07/20 18:59 06:59 18:59 Intake Total 900 540 420 Balance 900 540 420 Intake: IV 60 Sodium Chloride 0.9% 1, 60 000 ml @ 130 mls/hr IV . Q7H42M [facility] Rx#:[id number] Oral 900 480 420 Other: Voiding Method Toilet # Voids 1 3 1 - Exam GENERAL: The patient is alert and oriented x3, not in any acute distress. Well developed, well nourished. HEENT: Pupils are round and equally reacting to light. EOMI. No scleral icterus. No conjunctival pallor. Normocephalic, atraumatic. No pharyngeal erythema. No thyromegaly. CARDIOVASCULAR: S1 and S2 present. No murmurs, rubs, or gallops. PULMONARY: Chest is clear to auscultation, no wheezing or crackles. ABDOMEN: Soft, nontender, nondistended, normoactive bowel sounds. No palpable organomegaly. MUSCULOSKELETAL: No joint swelling or deformity. EXTREMITIES: No cyanosis, clubbing, or pedal edema. NEUROLOGICAL: Gross neurological examination did not reveal any focal deficits. SKIN: No rashes. No petechiae - Labs CBC & Chem 7: 04/07/20 07:55 04/07/20 07:55 Labs: Abnormal Lab Results - Last 24 Hours (Table) 04/06/20 04/07/20 04/07/20 Range/Units 09:14 07:55 07:55 PT 17.6 H (9.0-12.0) sec INR 1.8 H (<1.2) Sodium 134 L (137-145) mmol/L Glucose 121 H (74-99) mg/dL Procalcitonin 0.95 H (0.02-0.09) ng/mL Microbiology - Last 24 Hours (Table) 04/06/20 09:14 Blood Culture - Preliminary Blood No Growth after 24 hours 04/04/20 21:53 Group A Strep Throat Culture - Final Throat 04/04/20 21:53 Blood Culture - Preliminary Blood No Growth after 48 hours Assessment and Plan Assessment: upper respiratory Tract infection, mostly viral versus others systemic inflammatory response with fever and tachycardia, no leukocytosis or tachypnea Mostly sepsis of unknown source acute kidney injury, mostly prerenal, also patient got IV contrast so we will need close monitoring Thoracic aortic aneurysm increased 1 cm from old exam with chronic aortic dissection Hypertension Sleep apnea History of aortic dissection status post repair and aortic valve replacement Plan: this is a pleasant 64 years old male who presents with fever and sepsis and URT symptoms and diarrhea. Continue with antibiotic Pulmonary and infectious disease were consulted,follow-up with their recommendation. Continue with IV fluids with close monitoring of vitals and kidney function. To avoid nephrotoxins. Monitor blood pressure and try to avoid hypotension. follow-up urine legionella test Labs and medication were reviewed.. Continue same treatment. Continue with symptomatic treatment. Resume home medication. Monitor lytes and vitals. DVT and GI prophylaxis. Further recommendations depends on the clinical course of the patient DVT prophylaxis: Subcutaneous Lovenox GI Prophylaxis: Ppi
[2020-04-07] MEDS: MAGNESIUM OXIDE 400 MG TAB PO SCH (21:04)
[2020-04-07] MEDS: ALPRAZolam 0.25 MG TAB PO PRN (21:04)
--- NOTE | 2020-04-07 22:58 | PN ---
PROGRESS NOTE DATE OF SERVICE: 04/07/2020 REASON FOR FOLLOW UP: Fever, possible abdominal source. INTERVAL HISTORY: Patient is currently afebrile. Patient is breathing comfortably. The patient denies having any chest pain or shortness of breath or cough. Still complaining of significant diarrhea. No blood or mucus in the stool. No urinary symptoms. PHYSICAL EXAMINATION: Blood pressure 124/67, pulse of 90. Temperature is 97.8. He is 97% on 2 L nasal cannula. General description is a middle-aged male up in the bed in no distress. Respiratory system: Unlabored breathing, decreased breath sounds in the bases with no wheeze. Heart S1, S2. Regular rate and rhythm. Abdomen soft, no tenderness. LABS: Hemoglobin is 13.6, white count 6.6, creatinine 0.99. Urine for Legionella antigen negative. C diff negative. DIAGNOSTIC IMPRESSION AND PLAN: Patient with fever with GI symptoms with initial concern for possible COVID-19 infection that has been ruled out. Urine for Legionella is negative as well. Stool culture will be requested. Rocephin will be discontinued and we will add Questran, Flagyl and monitor clinical course closely. Continue supportive care. MMODL / IJN: [id number] /
[2020-04-08] MEDS: guaiFENesin-DM 100-10MG/5ML 10 ML CUP PO SCH ×3 (05:31→21:07)
[2020-04-08] MEDS: ACETAMINOPHEN TAB 325 MG TAB PO PRN (05:34)
[2020-04-08] MEDS: ALBUTEROL HFA INHALER INHALATION PRN ×4 (07:58→20:52)
[2020-04-08 08:20] LABS: Basophils % (A) 1 %; Eosinophils # (A) 0.1 k/uL (0-0.7); Eosinophils % (A) 2 %; HGB 12.5 gm/dL (13.0-17.5); Lymphocytes % (A) 16 %; MCH 29.3 pg (25.0-35.0); MCHC 32.8 g/dL (31.0-37.0); MCV 89.4 fL (80.0-100.0); Mean Platelet Volume 6.5; Monocytes # (A) 0.5 k/uL (0-1.0); Monocytes % (A) 8 %; Neutrophils # (A) 4.3 k/uL (1.3-7.7); Neutrophils % (A) 70 %; Platelet Count 212 k/uL (150-450); RBC 4.25 m/uL (4.30-5.90); RDW 12.9 % (11.5-15.5); WBC 6.1 k/uL (3.8-10.6)
[2020-04-08 08:29] LABS: INR 2.1 (<1.2); Prothrombin Time 20.1 sec (9.0-12.0)
[2020-04-08 08:42] LABS: African American GFR (CKD) >90 (>60 ml/min/1.73 sqM); Anion Gap 7 mmol/L; Blood Urea Nitrogen 19 mg/dL (9-20); Calcium 8.5 mg/dL (8.4-10.2); Carbon Dioxide 28 mmol/L (22-30); Chloride 100 mmol/L (98-107); Glucose 127 mg/dL (74-99); Non-African American GFR(CKD) >90 (>60 ml/min/1.73 sqM); Potassium 3.3 mmol/L (3.5-5.1); Sodium 135 mmol/L (137-145)
[2020-04-08] MEDS: ASPIRIN 81 MG PO SCH (09:27)
[2020-04-08] MEDS: CYANOCOBALAMIN 500 MCG TAB PO SCH (09:28)
[2020-04-08] MEDS: FERROUS SULFATE 325 MG TAB PO SCH (09:29)
[2020-04-08] MEDS: LEVOFLOXACIN 750 MG TAB PO SCH (09:29)
[2020-04-08] MEDS: METOPROLOL TARTRATE 25 MG TAB PO SCH ×2 (09:29→20:53)
[2020-04-08] MEDS: VIT A,C & E-LUTEIN-MINERALS 1 EACH TAB PO SCH (09:29)
[2020-04-08] MEDS: CHOLECALCIFEROL 1,000 UNIT TAB PO SCH (09:29)
[2020-04-08] MEDS: CHOLESTYRAMINE (WITH SUGAR) 4 GM PACKET PO SCH ×2 (09:30→17:09)
[2020-04-08] MEDS: MULTIVITAMINS, THERA 1 EACH TAB PO SCH (09:32)
[2020-04-08] MEDS: PANTOPRAZOLE 40 MG TABLET PO SCH (09:32)
[2020-04-08] MEDS: metroNIDAZOLE 500 MG TAB PO SCH ×3 (10:32→20:53)
[2020-04-08] MEDS ORDERED: Potassium Replacement Protocol 1 EACH MISC MISCELLANE PRN ×2 (10:33→11:19)
--- NOTE | 2020-04-08 10:34 | P.PN ---
Subjective this is a pleasant 64 years old male with past medical history of hypertension, sleep apnea, aortic dissection status post repair, aortic valve replacement. He follows up with Dr. Martinez as his PCP, although he denies any history of lung tissue. 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 This time patient presents with fever and upper respiratory symptoms. He has a sneezing, dry cough and and generalized body aches, mainly in his muscles associated with headache has been going on for about 3 days He denies chest pain or shortness of breath, however he has significant diarrhea 1 today which was watery-like, light brown with no blood. No abdominal pain or nausea vomiting No urinary complaints He denies smoking, alcohol or illicit drugs on admission he has a fever of 104.2, patient is breathing at 16-19 breath per minute, blood pressure 106/70 and his 96% on room air. labsShowing unremarkable WBC at 7.3K, unremarkable rest of CBC,no leukopenia, INR 2.4, sodium 136, creatinine is elevated at 1.7.liver enzymes not elevated. C-reactive protein elevated at 215, pro-calcitonin is elevated at 0.39. Urinalysis is getting concentrated but not obvious source of infection. Group A strep rapid is negative Chest x-ray: There is mild scarring and atelectasis in the left lung base slightly worse than last exam. No pulmonary consolidation. CTA of the chest:no PE. Descending thoracic aortic aneurysm increased 1 cm every maximum dimension compared to exam 5 years ago. Chronic aortic dissection similar to old exam in the emergency room patient was started on ibuprofen, no antibiotics. Normal saline at 130 mL/h. 04/06/2020 Patient is awake and alert, is breathing quietly but he still feeling chest tightness little worse this morning. And breathing therapy is provided for him. No chest pain or abdominal pain or nausea vomiting. Vitas looks stable. No fever since yesterday. His WBC came back to normal 7.0, hemoglobin slightly drop to 9.2, platelets also went down to 180 2K. It looks like patient has elements of hemoglobin delusion, sodium improved to 137. Selective for an is positive. C. diff is negative. covid test is negative, influenza test is negative. Urine Legionella test is pending. Appreciate infectious disease on pulmonary team input 04/07/2020 Patient sitting at bedside looks not in distress breathing quietly is still complaining of from significant coughing, Robitussin is added. This still have some abdominal discomfort and ongoing diarrhea, temperature today was low-grade fever only at 99.4. Labs looks stable and with no leukocytosis. Urine Legionella is negative. His INR today is went up to 1.8. As well as pro-calcitonin is increased, infectious disease team on the case and he switch his antibiotic from subtraction and Flagyl to Levaquin and Flagyl. We'll keep monitoring INR very closely as well as a lot of per meters. Patient got 4 mg of warfarin tonight. Consult cardiothoracic surgery for his history of aortic aneurysm status post repair 04/08/2020 Patient states he still short of breath today, he thinks cough medicine is helping him a little bit but he is complaining of from right shoulder pain, patient states that he has this pain for about a month from a tear but this pain is different, he has some limitation of present his arm above his head, no trauma or injury recently as per patient. His with no abdominal pain today. His stool is getting more formed, no loose stool like when he came in. However complains from hemorrhoids with some blood whenever he wipes. His CBC is normal, creatinine is back to normal. Sodium 135 and potassium 3.3 Objective - Vital Signs Vital signs: Vital Signs Temp 97.4 F L 04/08/20 08:00 Pulse 94 04/08/20 08:00 Resp 18 04/08/20 08:00 BP 117/59 04/08/20 08:00 Pulse Ox 96 04/08/20 08:00 Intake & Output 04/07/20 04/08/20 04/08/20 18:59 06:59 18:59 Intake Total 660 Output Total 300 650 Balance 360 -650 Intake: Oral 660 Output: Urine 300 650 Other: Voiding Method Toilet # Voids 1 1 # Bowel Movements 2 - Exam GENERAL: The patient is alert and oriented x3, not in any acute distress. Well developed, well nourished. HEENT: Pupils are round and equally reacting to light. EOMI. No scleral icterus. No conjunctival pallor. Normocephalic, atraumatic. No pharyngeal erythema. No thyromegaly. CARDIOVASCULAR: S1 and S2 present. No murmurs, rubs, or gallops. PULMONARY: Chest is clear to auscultation, no wheezing or crackles. ABDOMEN: Soft, nontender, nondistended, normoactive bowel sounds. No palpable organomegaly. MUSCULOSKELETAL: No joint swelling or deformity. EXTREMITIES: No cyanosis, clubbing, or pedal edema. NEUROLOGICAL: Gross neurological examination did not reveal any focal deficits. SKIN: No rashes. No petechiae - Labs CBC & Chem 7: 04/08/20 07:43 04/08/20 07:43 Labs: Abnormal Lab Results - Last 24 Hours (Table) 04/07/20 04/07/20 04/08/20 Range/Units 15:42 22:20 07:43 RBC (4.30-5.90) m/uL Hgb (13.0-17.5) gm/dL Hct (39.0-53.0) % PT 20.1 H (9.0-12.0) sec INR 2.1 H (<1.2) Sodium (137-145) mmol/L Potassium (3.5-5.1) mmol/L Glucose (74-99) mg/dL Urine Protein 1+ H (Negative) Urine Blood Small H (Negative) Hyaline Casts 3 H (0-2) /lpf Urine Mucus Rare H (None) /hpf Stool Lactoferrin POSITIVE H (NEGATIVE) 04/08/20 04/08/20 Range/Units 07:43 07:43 RBC 4.25 L (4.30-5.90) m/uL Hgb 12.5 L (13.0-17.5) gm/dL Hct 38.0 L (39.0-53.0) % PT (9.0-12.0) sec INR (<1.2) Sodium 135 L (137-145) mmol/L Potassium 3.3 L (3.5-5.1) mmol/L Glucose 127 H (74-99) mg/dL Urine Protein (Negative) Urine Blood (Negative) Hyaline Casts (0-2) /lpf Urine Mucus (None) /hpf Stool Lactoferrin (NEGATIVE) Microbiology - Last 24 Hours (Table) 04/07/20 18:30 Stool Culture - Preliminary Stool 04/04/20 21:53 Blood Culture - Preliminary Blood No Growth after 72 hours 04/06/20 09:14 Blood Culture - Preliminary Blood No Growth after 24 hours 04/04/20 21:53 Group A Strep Throat Culture - Final Throat Assessment and Plan Assessment: upper respiratory Tract infection, mostly viral versus others systemic inflammatory response with fever and tachycardia, no leukocytosis or tachypnea Mostly sepsis of unknown source acute kidney injury, mostly prerenal, also patient got IV contrast so we will need close monitoring Right shoulder pain with recent history of right shoulder tear as per patient about one months ago Hemorrhoids Thoracic aortic aneurysm increased 1 cm from old exam with chronic aortic dissection Hypertension Sleep apnea History of aortic dissection status post repair and aortic valve replacement Plan: this is a pleasant 64 years old male who presents with fever and sepsis and URT symptoms and diarrhea. Continue with antibiotic Pulmonary and infectious disease were consulted,follow-up with their recommendation. Continue with IV fluids with close monitoring of vitals and kidney function. To avoid nephrotoxins. Monitor blood pressure and try to avoid hypotension. follow-up urine legionella test Labs and medication were reviewed.. Continue same treatment. Continue with symptomatic treatment. Resume home medication. Monitor lytes and vitals. DVT and GI prophylaxis. Further recommendations depends on the clinical course of the patient DVT prophylaxis: Subcutaneous Lovenox GI Prophylaxis: Ppi
--- NOTE | 2020-04-08 11:07 | XR ---
EXAMINATION TYPE: XR shoulder complete RT DATE OF EXAM: 04/08/2020 COMPARISON: NONE HISTORY: Pain TECHNIQUE: Three views are submitted. FINDINGS: The osseous structures are intact. There is no acute fracture or dislocation. Surgical clips are see n. There is a severe hypertrophic arthropathy of the AC joint. Visualized lung cui clear. Sternoto my wires noted. Rib cage is intact as visualized. Glenohumeral joint demonstrates mild narrowing with a tiny spur along the inferior margin of the humeral head. IMPRESSION: 1. Arthropathy correlate for rotator cuff disease.
--- NOTE | 2020-04-08 13:38 | PN ---
PROGRESS NOTE DATE OF SERVICE: 04/08/2020 REASON FOR FOLLOWUP: Fever. INTERVAL HISTORY: Patient is currently afebrile. Patient has been breathing comfortably. The patient denies having chest pain. He did have minimal cough, not bringing up any sputum. No abdominal pain. Still has diarrhea but it has slowed down. PHYSICAL EXAMINATION: Blood pressure 139/83 with a pulse of 81, temperature 98.1, he is 95% 2 L nasal cannula. General description is a middle-aged male up in the room in no distress. Respiratory system: Unlabored breathing, decreased intensity of breath sounds. No wheeze. Heart S1, S2. Regular rate and rhythm. Abdomen is soft, no tenderness. LABS: Hemoglobin 12.5, white count 6.1. BUN of 19, creatinine 0.81. Stool culture pending. Blood culture is negative. DIAGNOSTIC IMPRESSION AND PLAN: Patient presented to the hospital with fever and GI symptoms with initial concern for possible COVID-19. Legionella came back. Patient is currently covered with Levaquin and Flagyl to continue while we wait for the stool culture to finalized. Continue supportive care. MMODL / IJN: [id number] /
--- NOTE | 2020-04-08 13:53 | P.PN ---
Subjective Progress Note Date: 04/08/20 Principal diagnosis: Acute febrile illness 64-year-old white male patient with past medical history of hypertension, hypercholesterolemia, osteoarthritis, obstructive sleep apnea syndrome, iron deficiency anemia, history of aortic valve replacement with a mechanical valve and aortic aneurysm surgical repair, macular degeneration, previous history of CVA, who presented to the emergency department on 04/04/2020 with complaints of a headache, worsening fevers over the last to 3 days with T-max of 103 while at home, did have associated body aches, diarrhea. Patient denied any overt obvious exposures to anybody with the "with 19. He denied any abdominal pain. Does have a slightly sore throat and some tickling in his throat. Does have a mild cough no phlegm production. No chest pain. He was taken Motrin and Tylenol at home for symptom control. His chest x-ray showed some mild scarring and atelectasis at the left lung base, no pulmonary consolidation. CT brain was completed showing normal head CT. His lab work was reviewed, showing normal white count of 7.3, hemoglobin 14.9, patient does have lymphopenia with a lymphocyte count 0.4, INR is 2.4, d-dimer was 1.02, electrolytes were unremarkable, B1 is 25 creatinine is 1.27, plasma lactic acid was 1, ferritin was within normal limits, LDH was 801, CRP was 215, protein acetone was elevated to 0.39. Group A strep was negative, urinalysis showed 1+ protein, trace blood, but no clear evidence of urinary tract infection. Patient has been febrile since admission for most of the day today, his T-max in last 24 hours 104.2. He is on room air, his pulse ox 96%, blood pressure stable, patient is tachycardic in the low 100s. EKG showed sinus tachycardia. Patient was started on IV hydration with 0.9 normal seen at a rate of 1:30 ML per hour, we started antibiotic coverage in the form of Rocephin, : 19 PCR was sent, blood cultures have been sent, influenza screen was sent. Patient is awake and alert, oriented 3, given history of present illness. Appears to be no distress, denies any shortness of breath. The patient is seen today 04/06/2020 in follow-up on the selective care unit. He is currently sitting up at the bedside. Awake and alert in no acute distress. He is maintaining O2 saturation in the mid 90s on room air. He's been afebrile. White count 5.5. Hemoglobin 13.1. INR 1.6. Sodium 132. Potassium 3.4. Creatinine 1.18. C-reactive protein 363. C. difficile screen negative. Current virus by PCR negative. Influenza A/B negative. Rapid strep negative. Blood culture reveals no growth to date. He is currently on ceftriaxone. Levaquin has been added. The patient is seen today 04/07/2020 in follow-up on selective care unit. He is currently up ambulating in the room. Awake and alert in no acute distress. Breathing bit easier today compared to yesterday. Continues with a low grade temperature currently 99.4. Calcitonin 0.9. CRP elevated. Microbiology revealing no growth thus far. White count 6.6. Hemoglobin 13.6. INR 1.8. Sodium 134. Potassium 3.5. Creatinine 0.99. Urine legionella antigen negative. He remains on ceftriaxone and Levaquin. The patient is seen today 04/08/2020 in follow-up on the selective care unit. He is currently sitting up at the bedside. Awake and alert in no acute distress. No worsening shortness of breath, cough or congestion. Still with some dyspnea on exertion. Suspect some bronchitis. He is currently afebrile. Maintaining O2 saturations in the mid 90s on 2 L/m per nasal cannula. Hemodynamically stable. Blood cultures revealed no growth. Throat culture reveals no growth. Follow-up blood cultures reveal no growth. Stool culture is pending. White count 6.1. Hemoglobin 12.5. INR 2.1. Sodium 135. Potassium 3.3. Creatinine 0.81. Stool lactoferrin was positive. He is currently on Questran, Flagyl, Levaquin. Objective - Vital Signs Vital signs: Vital Signs Temp 98.1 F 04/08/20 12:00 Pulse 81 04/08/20 12:00 Resp 18 04/08/20 12:00 BP 139/83 04/08/20 12:00 Pulse Ox 95 04/08/20 12:00 Intake & Output 04/07/20 04/08/20 04/08/20 18:59 06:59 18:59 Intake Total 660 240 Output Total 300 650 Balance 360 -650 240 Intake: Oral 660 240 Output: Urine 300 650 Other: Voiding Method Toilet Toilet # Voids 1 1 2 # Bowel Movements 2 1 - Exam GENERAL EXAM: Alert, active, 64-year-old gentleman, maintaining O2 saturation the mid 90s on 2 L/m per nasal cannula, comfortable in no apparent distress. HEAD: Normocephalic. EYES: Normal reaction of pupils, equal size. NOSE: Clear with pink turbinates. THROAT: No erythema or exudates. NECK: No masses, no JVD. CHEST: No chest wall deformity. LUNGS: Equal air entry with crackles in the bilateral posterior bases. CVS: S1 and S2 normal with no audible murmur, regular rhythm. ABDOMEN: No hepatosplenomegaly, normal bowel sounds, no guarding or rigidity. SPINE: No scoliosis or deformity SKIN: No rashes CENTRAL NERVOUS SYSTEM: No focal deficits, tone is normal in all 4 extremities. EXTREMITIES: There is no peripheral edema. No clubbing, no cyanosis. Peripheral pulses are intact. - Labs CBC & Chem 7: 04/08/20 07:43 04/08/20 07:43 Labs: Abnormal Lab Results - Last 24 Hours (Table) 04/07/20 04/07/20 04/08/20 Range/Units 15:42 22:20 07:43 RBC (4.30-5.90) m/uL Hgb (13.0-17.5) gm/dL Hct (39.0-53.0) % PT 20.1 H (9.0-12.0) sec INR 2.1 H (<1.2) Sodium (137-145) mmol/L Potassium (3.5-5.1) mmol/L Glucose (74-99) mg/dL Urine Protein 1+ H (Negative) Urine Blood Small H (Negative) Hyaline Casts 3 H (0-2) /lpf Urine Mucus Rare H (None) /hpf Stool Lactoferrin POSITIVE H (NEGATIVE) 04/08/20 04/08/20 Range/Units 07:43 07:43 RBC 4.25 L (4.30-5.90) m/uL Hgb 12.5 L (13.0-17.5) gm/dL Hct 38.0 L (39.0-53.0) % PT (9.0-12.0) sec INR (<1.2) Sodium 135 L (137-145) mmol/L Potassium 3.3 L (3.5-5.1) mmol/L Glucose 127 H (74-99) mg/dL Urine Protein (Negative) Urine Blood (Negative) Hyaline Casts (0-2) /lpf Urine Mucus (None) /hpf Stool Lactoferrin (NEGATIVE) Microbiology - Last 24 Hours (Table) 04/06/20 09:14 Blood Culture - Preliminary Blood No Growth after 48 hours 04/07/20 18:30 Stool Culture - Preliminary Stool 04/04/20 21:53 Blood Culture - Preliminary Blood No Growth after 72 hours Assessment and Plan Assessment: #1. Acute febrile illness with symptoms of body aches, limited cough, sore throat, diarrhea, and headaches, ruled out Covid 19. Influenza screen negative, group A strep was negative. Legionella antigen negative. C. difficile screen negative. Chest x-ray showed mild scarring and atelectasis at the left lung base, no pulmonary consolidation. #2. Elevated pro-calcitonin suggesting possibility of bacterial infection with unclear source, stool culture pending. Currently on Flagyl, Questran, Levaquin #3. Increased inflammatory markers including LDH and CRP, CoVID 19 ruled out #4. Elevated d-dimer, with no CTA chest evidence of pulmonary embolism #5. History of aortic valve replacement with a mechanical valve on Coumadin therapy #6. History of aortic aneurysm with history of aortic dissection requiring surgical repair #7. History of MRSA infection in the wound on the right heel in 2018 #8. History of obstructive sleep apnea on CPAP therapy #9. History of hypertension #10. Hypercholesterolemia #11. Former smoker Plan: The patient was seen and evaluated by Dr. Hernandez Continue the current treatment plan Infectious disease is on the case Stool culture pending Continue Flagyl and Levaquin We will continue to follow and make further recommendations based on his clinica l status I, the cosigning physician, performed a history & physical examination of the patient. Lungs sounds crackles in the bilateral posterior bases. Maintaining good O2 saturations in the 90s on 2 L/m per nasal cannula. I discussed the assessment and plan of care with my nurse practitioner, Jessica Silva. I attest to the above note as dictated by her.
[2020-04-08] MEDS: POTASSIUM CHLORIDE ER 20 MEQ TAB.ER PO SCH ×2 (14:12→17:09)
[2020-04-08] MEDS: HYDROCORTISONE 2.5% RECTAL CREAM 30 GM TUBE RECTAL SCH ×2 (14:13→20:53)
--- NOTE | 2020-04-08 16:20 | ECHOF ---
Referral Reason:Dyspnea, orthopnea MEASUREMENTS -------- HEIGHT: 172.7 cm WEIGHT: 79.8 kg BP: 117/59 RVIDd: 3.6 cm (< 3.3) IVSd: 1.4 cm (0.6 - 1.1) LVIDd: 5.2 cm (3.9 - 5.3) LVPWd: 1.4 cm (0.6 - 1.1) IVSs: 1.8 cm LVIDs: 3.4 cm LVPWs: 1.8 cm LA Diam: 4.4 cm (2.7 - 3.8) LAESV Index (A-L): 40.22 ml/m Ao Diam: 3.7 cm (2.0 - 3.7) MV EXCURSION: 21.171 mm (> 18.000) MV EF SLOPE: 101 mm/s (70 - 150) EPSS: 1.3 cm MV E Kai: 1.04 m/s MV DecT: 156 ms MV A Kai: 0.73 m/s MV E/A Ratio: 1.44 AV maxP.50 mmHg AV meanP.57 mmHg RAP: 5.00 mmHg RVSP: 28.15 mmHg FINDINGS -------- Sinus rhythm. This was a technically difficult study with suboptimal apical views. The left ventricular size is normal. There is mild concentric left ventricular hypertrophy. Overa ll left ventricular systolic function is normal with, an EF between 60 - 65 %. The right ventricle is mildly enlarged. LA is severely dilated >40 ml/m2 The right atrium is normal in size. Lumason used Interatrial and interventricular septum intact. Peak/mean gradient across the Aortic Valve is 16.50mmHg / 8.57mmHg. Normally functioning mechanical prosthetic valve. Mild mitral regurgitation is present. Mild tricuspid regurgitation present. Right ventricular systolic pressure is normal at < 35 mmHg. Moderate pulmonic regurgitation. The aortic root size is normal. IVC Not well visulized. There is no pericardial effusion. CONCLUSIONS -------- 1. The left ventricular size is normal. 2. There is mild concentric left ventricular hypertrophy. 3. Overall left ventricular systolic function is normal with, an EF between 60 - 65 %. 4. The right ventricle is mildly enlarged. 5. LA is severely dilated >40 ml/m2 6. Lumason used 7. Peak/mean gradient across the Aortic Valve is 16.50mmHg / 8.57mmHg. 8. Normally functioning mechanical prosthetic valve. 9. Mild mitral regurgitation is present. 10. Mild tricuspid regurgitation present. 11. Moderate pulmonic regurgitation. 12. There is no pericardial effusion. HULL INSPECTOR: Roro Mcmahan RDCS
[2020-04-08] MEDS ORDERED: WARFARIN 3 MG TAB PO ONE ×2 (18:00→21:00)
[2020-04-08] MEDS: MAGNESIUM OXIDE 400 MG TAB PO SCH (20:53)
[2020-04-09] MEDS: guaiFENesin-DM 100-10MG/5ML 10 ML CUP PO SCH ×5 (02:00→23:30)
[2020-04-09] MEDS: ALBUTEROL HFA INHALER INHALATION PRN ×4 (04:32→20:29)
[2020-04-09] MEDS: ACETAMINOPHEN TAB 325 MG TAB PO PRN (06:45)
[2020-04-09 08:01] LABS: INR 2.1 (<1.2); Prothrombin Time 20.7 sec (9.0-12.0)
[2020-04-09 08:11] LABS: African American GFR (CKD) >90 (>60 ml/min/1.73 sqM); Anion Gap 8 mmol/L; Blood Urea Nitrogen 18 mg/dL (9-20); Calcium 8.7 mg/dL (8.4-10.2); Carbon Dioxide 26 mmol/L (22-30); Chloride 102 mmol/L (98-107); Glucose 123 mg/dL (74-99); Magnesium 1.8 mg/dL (1.6-2.3); Non-African American GFR(CKD) >90 (>60 ml/min/1.73 sqM); Potassium 3.5 mmol/L (3.5-5.1); Sodium 136 mmol/L (137-145)
[2020-04-09] MEDS: CHOLESTYRAMINE (WITH SUGAR) 4 GM PACKET PO SCH ×2 (08:21→18:06)
[2020-04-09] MEDS: METOPROLOL TARTRATE 25 MG TAB PO SCH ×2 (08:21→20:27)
[2020-04-09] MEDS: LEVOFLOXACIN 750 MG TAB PO SCH (08:22)
[2020-04-09] MEDS: CYANOCOBALAMIN 500 MCG TAB PO SCH (08:22)
[2020-04-09] MEDS: metroNIDAZOLE 500 MG TAB PO SCH ×3 (08:22→20:27)
[2020-04-09] MEDS: ASPIRIN 81 MG PO SCH (08:23)
[2020-04-09] MEDS: PANTOPRAZOLE 40 MG TABLET PO SCH (08:23)
[2020-04-09] MEDS: MULTIVITAMINS, THERA 1 EACH TAB PO SCH (08:23)
[2020-04-09] MEDS: FERROUS SULFATE 325 MG TAB PO SCH (08:23)
[2020-04-09] MEDS: CHOLECALCIFEROL 1,000 UNIT TAB PO SCH (08:23)
[2020-04-09] MEDS: VIT A,C & E-LUTEIN-MINERALS 1 EACH TAB PO SCH (08:24)
[2020-04-09] MEDS: HYDROCORTISONE 2.5% RECTAL CREAM 30 GM TUBE RECTAL SCH ×2 (08:25→20:27)
[2020-04-09] MEDS: CHLORTHALIDONE 25 MG TAB PO SCH (10:37)
--- NOTE | 2020-04-09 10:39 | P.PN ---
Subjective this is a pleasant 64 years old male with past medical history of hypertension, sleep apnea, aortic dissection status post repair, aortic valve replacement. He follows up with Dr. Martinez as his PCP, although he denies any history of lung tissue. 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 This time patient presents with fever and upper respiratory symptoms. He has a sneezing, dry cough and and generalized body aches, mainly in his muscles associated with headache has been going on for about 3 days He denies chest pain or shortness of breath, however he has significant diarrhea 1 today which was watery-like, light brown with no blood. No abdominal pain or nausea vomiting No urinary complaints He denies smoking, alcohol or illicit drugs on admission he has a fever of 104.2, patient is breathing at 16-19 breath per minute, blood pressure 106/70 and his 96% on room air. labsShowing unremarkable WBC at 7.3K, unremarkable rest of CBC,no leukopenia, INR 2.4, sodium 136, creatinine is elevated at 1.7.liver enzymes not elevated. C-reactive protein elevated at 215, pro-calcitonin is elevated at 0.39. Urinalysis is getting concentrated but not obvious source of infection. Group A strep rapid is negative Chest x-ray: There is mild scarring and atelectasis in the left lung base slightly worse than last exam. No pulmonary consolidation. CTA of the chest:no PE. Descending thoracic aortic aneurysm increased 1 cm every maximum dimension compared to exam 5 years ago. Chronic aortic dissection similar to old exam in the emergency room patient was started on ibuprofen, no antibiotics. Normal saline at 130 mL/h. 04/06/2020 Patient is awake and alert, is breathing quietly but he still feeling chest tightness little worse this morning. And breathing therapy is provided for him. No chest pain or abdominal pain or nausea vomiting. Vitas looks stable. No fever since yesterday. His WBC came back to normal 7.0, hemoglobin slightly drop to 9.2, platelets also went down to 180 2K. It looks like patient has elements of hemoglobin delusion, sodium improved to 137. Selective for an is positive. C. diff is negative. covid test is negative, influenza test is negative. Urine Legionella test is pending. Appreciate infectious disease on pulmonary team input 04/07/2020 Patient sitting at bedside looks not in distress breathing quietly is still complaining of from significant coughing, Robitussin is added. This still have some abdominal discomfort and ongoing diarrhea, temperature today was low-grade fever only at 99.4. Labs looks stable and with no leukocytosis. Urine Legionella is negative. His INR today is went up to 1.8. As well as pro-calcitonin is increased, infectious disease team on the case and he switch his antibiotic from subtraction and Flagyl to Levaquin and Flagyl. We'll keep monitoring INR very closely as well as a lot of per meters. Patient got 4 mg of warfarin tonight. Consult cardiothoracic surgery for his history of aortic aneurysm status post repair 04/08/2020 Patient states he still short of breath today, he thinks cough medicine is helping him a little bit but he is complaining of from right shoulder pain, patient states that he has this pain for about a month from a tear but this pain is different, he has some limitation of present his arm above his head, no trauma or injury recently as per patient. His with no abdominal pain today. His stool is getting more formed, no loose stool like when he came in. However complains from hemorrhoids with some blood whenever he wipes. His CBC is stool culture are still pending. normal, creatinine is back to normal. Sodium 135 and potassium 3.3 04/09/2020 Patient breathing and coughing are looking better today is still have some loose stool. About 2-3 bowel movement since yesterday and they were loose Vital signs stable as well as BMP, INR today is 2.1 while patient is on Coumadin. Stool cultures are still pending. Director Pharmacology team were consulted and they are in the process of evaluating the patient. Echocardiogram showed ejection fraction of 60-65% with moderate pulmonary regurgitation Continue on Levaquin and Flagyl and warfarin. Objective - Vital Signs Vital signs: Vital Signs Temp 98.2 F 04/09/20 08:00 Pulse 89 04/09/20 08:00 Resp 17 04/09/20 08:00 BP 134/59 04/09/20 08:00 Pulse Ox 97 04/09/20 04:00 Intake & Output 04/08/20 04/09/20 04/09/20 18:59 06:59 18:59 Intake Total 702 236 Balance 702 236 Weight 94.3 kg Intake: Oral 702 236 Other: Voiding Method Toilet Toilet # Voids 2 1 1 # Bowel Movements 1 - Exam GENERAL: The patient is alert and oriented x3, not in any acute distress. Well developed, well nourished. HEENT: Pupils are round and equally reacting to light. EOMI. No scleral icterus. No conjunctival pallor. Normocephalic, atraumatic. No pharyngeal erythema. No thyromegaly. CARDIOVASCULAR: S1 and S2 present. No murmurs, rubs, or gallops. PULMONARY: Chest is clear to auscultation, no wheezing or crackles. ABDOMEN: Soft, nontender, nondistended, normoactive bowel sounds. No palpable organomegaly. MUSCULOSKELETAL: No joint swelling or deformity. EXTREMITIES: No cyanosis, clubbing, or pedal edema. NEUROLOGICAL: Gross neurological examination did not reveal any focal deficits. SKIN: No rashes. No petechiae - Labs CBC & Chem 7: 04/08/20 07:43 04/09/20 07:34 Labs: Abnormal Lab Results - Last 24 Hours (Table) 04/09/20 04/09/20 Range/Units 07:34 07:34 PT 20.7 H (9.0-12.0) sec INR 2.1 H (<1.2) Sodium 136 L (137-145) mmol/L Glucose 123 H (74-99) mg/dL Microbiology - Last 24 Hours (Table) 04/04/20 21:53 Blood Culture - Preliminary Blood No Growth after 96 hours 04/06/20 09:14 Blood Culture - Preliminary Blood No Growth after 48 hours Assessment and Plan Assessment: upper respiratory Tract infection, mostly viral versus others systemic inflammatory response with fever and tachycardia, no leukocytosis or tachypnea Mostly sepsis . Suspected Secondary to acute gastroenteritis acute kidney injury, mostly prerenal, back to normal Right shoulder pain with recent history of right shoulder tear as per patient about one months ago Hemorrhoids Thoracic aortic aneurysm increased 1 cm from old exam with chronic aortic dissection Hypertension Sleep apnea History of aortic dissection status post repair and aortic valve replacement Plan: this is a pleasant 64 years old male who presents with fever and sepsis and URT symptoms and diarrhea. Continue with antibiotic Pulmonary and infectious disease were consulted,follow-up with their recommendat ion. Cardiology consult Continue with IV fluids with close monitoring of vitals and kidney function. To avoid nephrotoxins. Monitor blood pressure and try to avoid hypotension. follow-up urine legionella test Labs and medication were reviewed.. Continue same treatment. Continue with symptomatic treatment. Resume home medication. Monitor lytes and vitals. DVT and GI prophylaxis. Further recommendations depends on the clinical course of the patient DVT prophylaxis: Subcutaneous Lovenox GI Prophylaxis: Ppi
--- NOTE | 2020-04-09 11:53 | XR ---
EXAMINATION TYPE: XR chest 1V DATE OF EXAM: 04/09/2020 COMPARISON: 04/06/2020 HISTORY: 64 year-old male shortness of breath TECHNIQUE: Single frontal view of the chest is obtained. FINDINGS: Intervascular stent graft of the distal arch and upper descending thoracic aorta. Median sternotomy w ires are present. Elevated right hemidiaphragm. Diffuse interstitial density appears in part chronic. Surgical clips at the upper right axilla. IMPRESSION: 1. Interstitial changes slightly more pronounced, correlate for possible mild pulmonary vascular allie estion. 2. Previous endovascular stent graft of the distal arch and upper descending thoracic aorta. 3. Asymmetric elevated right hemidiaphragm of uncertain clinical significance. Consider the possibili ty of hemidiaphragmatic paralysis.
--- NOTE | 2020-04-09 12:24 | P.PN ---
Subjective Progress Note Date: 04/09/20 Principal diagnosis: Acute febrile illness 64-year-old white male patient with past medical history of hypertension, hypercholesterolemia, osteoarthritis, obstructive sleep apnea syndrome, iron deficiency anemia, history of aortic valve replacement with a mechanical valve and aortic aneurysm surgical repair, macular degeneration, previous history of CVA, who presented to the emergency department on 04/04/2020 with complaints of a headache, worsening fevers over the last to 3 days with T-max of 103 while at home, did have associated body aches, diarrhea. Patient denied any overt obvious exposures to anybody with the "with 19. He denied any abdominal pain. Does have a slightly sore throat and some tickling in his throat. Does have a mild cough no phlegm production. No chest pain. He was taken Motrin and Tylenol at home for symptom control. His chest x-ray showed some mild scarring and atelectasis at the left lung base, no pulmonary consolidation. CT brain was completed showing normal head CT. His lab work was reviewed, showing normal white count of 7.3, hemoglobin 14.9, patient does have lymphopenia with a lymphocyte count 0.4, INR is 2.4, d-dimer was 1.02, electrolytes were unremarkable, B1 is 25 creatinine is 1.27, plasma lactic acid was 1, ferritin was within normal limits, LDH was 801, CRP was 215, protein acetone was elevated to 0.39. Group A strep was negative, urinalysis showed 1+ protein, trace blood, but no clear evidence of urinary tract infection. Patient has been febrile since admission for most of the day today, his T-max in last 24 hours 104.2. He is on room air, his pulse ox 96%, blood pressure stable, patient is tachycardic in the low 100s. EKG showed sinus tachycardia. Patient was started on IV hydration with 0.9 normal seen at a rate of 1:30 ML per hour, we started antibiotic coverage in the form of Rocephin, : 19 PCR was sent, blood cultures have been sent, influenza screen was sent. Patient is awake and alert, oriented 3, given history of present illness. Appears to be no distress, denies any shortness of breath. The patient is seen today 04/06/2020 in follow-up on the selective care unit. He is currently sitting up at the bedside. Awake and alert in no acute distress. He is maintaining O2 saturation in the mid 90s on room air. He's been afebrile. White count 5.5. Hemoglobin 13.1. INR 1.6. Sodium 132. Potassium 3.4. Creatinine 1.18. C-reactive protein 363. C. difficile screen negative. Current virus by PCR negative. Influenza A/B negative. Rapid strep negative. Blood culture reveals no growth to date. He is currently on ceftriaxone. Levaquin has been added. The patient is seen today 04/07/2020 in follow-up on selective care unit. He is currently up ambulating in the room. Awake and alert in no acute distress. Breathing bit easier today compared to yesterday. Continues with a low grade temperature currently 99.4. Calcitonin 0.9. CRP elevated. Microbiology revealing no growth thus far. White count 6.6. Hemoglobin 13.6. INR 1.8. Sodium 134. Potassium 3.5. Creatinine 0.99. Urine legionella antigen negative. He remains on ceftriaxone and Levaquin. The patient is seen today 04/08/2020 in follow-up on the selective care unit. He is currently sitting up at the bedside. Awake and alert in no acute distress. No worsening shortness of breath, cough or congestion. Still with some dyspnea on exertion. Suspect some bronchitis. He is currently afebrile. Maintaining O2 saturations in the mid 90s on 2 L/m per nasal cannula. Hemodynamically stable. Blood cultures revealed no growth. Throat culture reveals no growth. Follow-up blood cultures reveal no growth. Stool culture is pending. White count 6.1. Hemoglobin 12.5. INR 2.1. Sodium 135. Potassium 3.3. Creatinine 0.81. Stool lactoferrin was positive. He is currently on Questran, Flagyl, Levaquin. The patient is seen today 04/09/2020 in follow-up on the selective care unit. He is awake and alert in no acute distress. Chest x-ray continues to reveal evidence of a right hemidiaphragm elevation. Noted endovascular stent graft of the distal arch and a descending thoracic aorta. There is interstitial changes slightly more pronounced, possible pulmonary vascular congestion. INR 2.1. Sodium 136. Potassium 3.5. Creatinine 0.79. He remains on Levaquin, Flagyl, bronchodilators. Objective - Vital Signs Vital signs: Vital Signs Temp 98.2 F 10/18/20 08:00 Pulse 89 04/09/20 08:00 Resp 17 04/09/20 08:00 BP 134/59 04/09/20 08:00 Pulse Ox 97 04/09/20 04:00 Intake & Output 04/08/20 04/09/20 04/09/20 18:59 06:59 18:59 Intake Total 702 236 Balance 702 236 Weight 94.3 kg Intake: Oral 702 236 Other: Voiding Method Toilet Toilet Toilet # Voids 2 1 1 # Bowel Movements 1 - Exam GENERAL EXAM: Alert, active, 64-year-old gentleman, maintaining O2 saturation the mid 90s on 2 L/m per nasal cannula, comfortable in no apparent distress. HEAD: Normocephalic. EYES: Normal reaction of pupils, equal size. NOSE: Clear with pink turbinates. THROAT: No erythema or exudates. NECK: No masses, no JVD. CHEST: No chest wall deformity. LUNGS: Equal air entry with crackles in the bilateral posterior bases, diminished right base. CVS: S1 and S2 normal with no audible murmur, regular rhythm. ABDOMEN: No hepatosplenomegaly, normal bowel sounds, no guarding or rigidity. SPINE: No scoliosis or deformity SKIN: No rashes CENTRAL NERVOUS SYSTEM: No focal deficits, tone is normal in all 4 extremities. EXTREMITIES: There is no peripheral edema. No clubbing, no cyanosis. Peripheral pulses are intact. - Labs CBC & Chem 7: 04/08/20 07:43 04/09/20 07:34 Labs: Abnormal Lab Results - Last 24 Hours (Table) 04/09/20 04/09/20 Range/Units 07:34 07:34 PT 20.7 H (9.0-12.0) sec INR 2.1 H (<1.2) Sodium 136 L (137-145) mmol/L Glucose 123 H (74-99) mg/dL Microbiology - Last 24 Hours (Table) 04/06/20 09:14 Blood Culture - Preliminary Blood No Growth after 72 hours 04/04/20 21:53 Blood Culture - Preliminary Blood No Growth after 96 hours Assessment and Plan Assessment: #1. Acute febrile illness with symptoms of body aches, limited cough, sore throat, diarrhea, and headaches, ruled out Covid 19. Influenza screen negative, group A strep was negative. Legionella antigen negative. C. difficile screen negative. Chest x-ray showed mild scarring and atelectasis at the left lung base, elevated right hemidiaphragm, no pulmonary consolidation. #2. Elevated pro-calcitonin suggesting possibility of bacterial infection with unclear source, stool culture pending. Currently on Flagyl, Questran, Levaquin #3. Increased inflammatory markers including LDH and CRP, CoVID 19 ruled out #4. Elevated d-dimer, with no CTA chest evidence of pulmonary embolism #5. History of aortic valve replacement with a mechanical valve on Coumadin therapy #6. History of aortic aneurysm with history of aortic dissection requiring surgical repair #7. History of MRSA infection in the wound on the right heel in 2018 #8. History of obstructive sleep apnea on CPAP therapy #9. History of hypertension #10. Hypercholesterolemia #11. Former smoker Plan: The patient was seen and evaluated by Dr. Hernandez Chest x-ray and labs reviewed Minimal fluid volume overload We'll give Lasix 40 mg IVP 1 Continue the current treatment plan Infectious disease is on the case Continue Flagyl and Levaquin We will continue to follow and make further recommendations based on his clinical status I, the cosigning physician, performed a history & physical examination of the patient. Lungs sounds crackles in the bilateral posterior bases. Maintaining good O2 saturations in the 90s on room air. I discussed the assessment and plan of care with my nurse practitioner, Jessica Silva. I attest to the above note as dictated by her.
[2020-04-09] MEDS ORDERED: FUROSEMIDE 10 MG/ML 4 ML VIAL IV STA (12:25)
--- NOTE | 2020-04-09 13:26 | P.CRDCN ---
History of Present Illness History of present illness: HISTORY OF PRESENTING ILLNESS This is a pleasant 64-year-old male past medical history significant for aortic dissection status post repair, valvular heart disease status post mechanical aortic valve replacement, paroxysmal atrial fibrillation on long-term anticoagulation, hypertension, obstructive sleep apnea and former nicotine dependence. He follows in the office with Dr. Storm out of [facility]. We have been asked to see in consultation for orthopnea. And presented to the hospital with symptoms of fever, diarrhea and headache. He is currently being treated for suspected bacterial infection of unclear sourse. ID is following. Initially on admission he had no shortness of breath, however in the last 2 days he has developed some exertional shortnses of breath and orthopnea.He stateshis breathing ok at rest and back and forth to the bathroom but much mroe than that and he feels dyspneic and tired. At home he is prescribed chlorthalidone which has been held since admission. He denies symptoms of chest pain, dizziness or palpitations. Echocardiogram obtained reveals preserved LV systolic function with ejection fraction 60-65%, severely dilated left atrium, normally functioning mechanical prosthetic valve with a mean gradient of 8 mmHg, mild TR and moderate pulmonic regurgitation noted DIAGNOSTICS EKG reveals sinus tachycardia heart rate of 107. Chest xray from 3 days ago reveals right middle lobe atelectasis. Laboratory reviewed, WBC 6.1, hemoglobin 12.5, platelets 212, INR 2.1, sodium 136, potassium 3.5, creatinine 0.79, magnesium 1.8, pro-calcitonin 0.95, NT proBNP 842, covid negative. REVIEW OF SYSTEMS At the time of my exam: CONSTITUTIONAL: Denies fever or chills. CARDIOVASCULAR: Complains of exertional shortness of breath and orthopnea. Denies chest pain, PND or palpitations. RESPIRATORY: Denies cough. GASTROINTESTINAL: Denies abdominal pain, diarrhea, constipation, nausea or vomiting. MUSCULOSKELETAL: Denies myalgias. NEUROLOGIC: Denies numbness, tingling or weakness. ENDOCRINE: Denies fatigue, weight change, polydipsia or polyurina. GENITOURINARY: Denies burning, hematuria or urgency with micturation. HEMATOLOGIC: Denies history of anemia or bleeding. PHYSICAL EXAMINATION Blood pressure 132/80 heart rate 88 afebrile and maintaining oxygen saturation on room air. CONSTITUTIONAL: No apparent distress. HEENT: Head is normocephalic. Pupils are equal, round. Sclerae anicteric. Mucous membranes of the mouth are moist. No JVD. No carotid bruit. CHEST EXAMINATION: Lungs are clear to auscultation. No chest wall tenderness is noted on palpation or with deep breathing. HEART EXAMINATION: Regular rate and rhythm. S1, S2 heard. Mechanical click heard at all listening points most prominent at the base, no murmurs, gallops or rub. ABDOMEN: Soft, nontender. Positive bowel sounds. EXTREMITIES: 2+ peripheral pulses, no lower extremity edema and no calf tenderness. NEUROLOGIC EXAMINATION: Patient is awake, alert and oriented x3. ASSESSMENT Febrile illness Likely bacterial infection of unclear source with elevated pro-calcitonin Exertional dyspnea Hypokalemia Valvular heart disease s/p mechanical aortic valve replaement Peripheral vascular disease s/p aortic dissection and repair with endograft placement Hypertension Dyslipidemia Paroxysmal atrial fibrillation, currently in sinus mechanism. PLAN Resume chlorthalidone. Chest xray ordered, will consider IV diuretics if congestion noted. Lungs clear on exam and normal BNP. We will discuss with ID the source of infection. Blood cultures have been negative making the mechanical valve unlikely. Target INR 2.5-3.5. Give coumadin 7.5 mg tonight. Thank you kindly for this consultation. Nurse Practitioner note has been reviewed, I agree with a documented findings and plan of care. Patient was seen and examined. Past Medical History Past Medical History: Hypertension, Sleep Apnea/CPAP/BIPAP, Sleep Apnea/CPAP /BIPAP Additional Past Medical History / Comment(s): BILAT CATARACTS, Aortic dissection,. HX FX RT FOOT 12/24/16. RT HEEL WOUND, History of Any Multi-Drug Resistant Organisms: MRSA Date of last positivie culture/infection: 2016 MDRO Source:: r heel Past Surgical History: Joint Replacement Additional Past Surgical History / Comment(s): aortic aneurysm repair, aortic heart valve replacement, aortic disection, total left knee replacedCOLONOSCOPY, RT FOOT SURGERY-HAS PLATE AND 10 PINS Past Anesthesia/Blood Transfusion Reactions: No Reported Reaction Additional Past Anesthesia/Blood Transfusion Reaction / Comment(s): Pt has received blood without reaction with aortic vessel surgery. Past Psychological History: No Psychological Hx Reported Smoking Status: Former smoker Past Alcohol Use History: Rare Past Drug Use History: None Reported - Past Family History Father Family Medical History: Cancer Additional Family Medical History / Comment(s): lung CA Mother Family Medical History: Myocardial Infarction (NC) Additional Family Medical History / Comment(s): Possible NC. Mother is . Brother(s) Family Medical History: Cancer Additional Family Medical History / Comment(s): throat Medications and Allergies Home Medications Medication Instructions Recorded Confirmed Type Aspirin EC [Ecotrin Low Dose] 81 mg PO DAILY 12/01/14 04/04/20 History Ferrous Sulfate [Iron (65 MG 325 mg PO DAILY 12/01/14 04/04/20 History Elemental)] Multivit-Min/FA/Lycopene/Lut 1 each PO DAILY 12/01/14 04/04/20 History [Centrum Silver Tablet] Vit C/E/Zn/Coppr/Lutein/Zeaxan 1 each PO DAILY 12/01/14 04/04/20 History [Preservision Areds 2 Softgel] ALPRAZolam [Xanax] 0.25 mg PO QAM PRN 04/11/17 04/04/20 History Cyanocobalamin (Vitamin B-12) 2,500 mcg PO DAILY 04/11/17 04/04/20 History [Vitamin B12] Warfarin Sodium [Coumadin] 4 mg PO MO@2100 04/11/17 04/04/20 History Warfarin Sodium [Coumadin] 6 mg PO SUTUWEFRSA@2100 04/11/17 04/04/20 History Chlorthalidone [Hygroton] 12.5 mg PO QAM 04/04/20 04/04/20 History Cholecalciferol [Vitamin D3 (25 2,000 unit PO DAILY 04/04/20 04/04/20 History Mcg = 1000 Iu)] Evolocumab [Repatha Sureclick] 140 mg INJ Q14D 04/04/20 04/04/20 History Losartan Potassium [Cozaar] 50 mg PO BID 04/04/20 04/04/20 History Magnesium 250 mg PO HS 04/04/20 04/04/20 History Metoprolol Tartrate [Lopressor] 25 mg PO BID 04/04/20 04/04/20 History Tadalafil [Cialis] 10 mg PO DIRECTED PRN 04/04/20 04/04/20 History Allergies Allergy/AdvReac Type Severity Reaction Status Date / Time copper Allergy Rash/Hives Verified 04/04/20 23:48 Sulfa (Sulfonamide Allergy Swelling Verified 04/04/20 23:48 Antibiotics) Physical Exam Vitals: Vital Signs Temp Pulse Resp BP Pulse Ox 04/09/20 04:01 18 04/09/20 04:00 98.2 F 89 18 137/75 97 04/09/20 00:00 98.9 F 88 18 141/83 96 04/08/20 20:00 90 18 139/79 97 04/08/20 16:00 81 18 131/78 97 04/08/20 12:00 98.1 F 81 18 139/83 95 Intake and Output 04/08/20 04/09/20 04/09/20 22:59 06:59 14:59 Intake Total 222 Balance 222 Intake: Oral 222 Other: Voiding Method Toilet Toilet # Voids 2 1 Weight 94.3 kg Results 04/08/20 07:43 04/09/20 07:34 Coagulation 04/08/20 04/09/20 Range/Units 07:43 07:34 PT 20.1 H 20.7 H (9.0-12.0) sec CBC 04/08/20 Range/Units 07:43 WBC 6.1 (3.8-10.6) k/uL RBC 4.25 L (4.30-5.90) m/uL Hgb 12.5 L (13.0-17.5) gm/dL Hct 38.0 L (39.0-53.0) % Plt Count 212 (150-450) k/uL Comprehensive Metabolic Panel 04/08/20 Range/Units 07:43 Sodium 135 L (137-145) mmol/L Potassium 3.3 L (3.5-5.1) mmol/L Chloride 100 (98-107) mmol/L Carbon Dioxide 28 (22-30) mmol/L BUN 19 (9-20) mg/dL Creatinine 0.81 (0.66-1.25) mg/dL Glucose 127 H (74-99) mg/dL Calcium 8.5 (8.4-10.2) mg/dL Current Medications Generic Name Dose Route Start Last Admin Trade Name Freq PRN Reason Stop Dose Admin Acetaminophen 650 mg 04/05/20 02:13 04/09/20 06:45 Acetaminophen Tab 325 Mg Tab PO 650 mg Q6HR PRN Administration Fever and/ or Pain Albuterol Sulfate 2 puff 04/06/20 12:34 04/09/20 07:50 Albuterol Hfa Inhaler INHALATION 2 puff RT-QID PRN Administration Shortness Of Breath Or Wheezing Albuterol/Ipratropium 3 ml 04/06/20 10:01 Ipratropium-Albuterol 3 Ml Neb INHALATION RT-TID PRN Shortness Of Breath Or Wheezing Alprazolam 0.25 mg 04/05/20 20:20 04/07/20 21:04 Alprazolam 0.25 Mg Tab PO 0.25 mg DAILY PRN Administration Anxiety Aspirin 81 mg 04/06/20 09:00 04/08/20 09:27 Aspirin 81 Mg PO 81 mg DAILY SHAVONNE Administration Cholecalciferol 2,000 unit 04/06/20 09:00 04/08/20 09:29 Cholecalciferol 1,000 Unit Tab PO 2,000 unit DAILY SHAVONNE Administration Cholestyramine Resin 4 gm 04/07/20 18:00 04/08/20 17:09 Cholestyramine (With Sugar) 4 Gm Packet PO 4 gm BID@1000,1800 SHAVONNE Administration Cyanocobalamin 2,500 mcg 04/06/20 09:00 04/08/20 09:28 Cyanocobalamin 500 Mcg Tab PO 2,500 mcg DAILY SHAVONNE Administration Ferrous Sulfate 325 mg 04/06/20 09:00 04/08/20 09:29 Ferrous Sulfate 325 Mg Tab PO 325 mg DAILY SHAVONNE Administration Guaifenesin/Dextromethorphan 10 ml 04/07/20 12:00 04/09/20 06:40 Guaifenesin-Dm 100-10mg/5ml 10 Ml Cup PO 10 ml Q6H SHAVONNE Administration Hydrocortisone 1 applic 04/08/20 10:45 04/08/20 20:53 Hydrocortisone 2.5% Rectal Cream 30 Gm Tube RECTAL 04/13/20 10:46 1 applic BID SHAVONNE Administration Ibuprofen 400 mg 04/05/20 18:40 04/06/20 03:29 Ibuprofen 400 Mg Tab PO 400 mg Q6HR PRN Administration Pain Levofloxacin 750 mg 04/07/20 09:00 04/08/20 09:29 Levofloxacin 750 Mg Tab PO 750 mg DAILY SHAVONNE Administration Loperamide HCl 2 mg 04/05/20 20:10 04/07/20 10:02 Loperamide 2 Mg Cap PO 2 mg QID PRN Administration Diarrhea Magnesium Oxide 400 mg 04/05/20 21:00 04/08/20 20:53 Magnesium Oxide 400 Mg Tab PO 400 mg HS SHAVONNE Administration Metoprolol Tartrate 25 mg 04/05/20 21:00 04/08/20 20:53 Metoprolol Tartrate 25 Mg Tab PO 25 mg BID SHAVONNE Administration Metronidazole 500 mg 04/07/20 16:30 04/08/20 20:53 Metronidazole 500 Mg Tab PO 500 mg TID SHAVONNE Administration Miscellaneous Information 0 each 04/05/20 14:23 Warfarin Per Pharmacy MISCELLANE DIRECTED PRN per protocol Miscellaneous Information 1 each 04/08/20 11:19 Potassium Replacement Protocol 1 Each Misc MISCELLANE DAILY PRN Per Protocol Protocol Multivitamins 1 each 04/06/20 09:00 04/08/20 09:32 Multivitamins, Thera 1 Each Tab PO 1 each DAILY SHAVONNE Administration Multivitamins/Minerals 1 each 04/06/20 09:00 04/08/20 09:29 Vit A,C & F-Hplbxq-Hucvruim 1 Each Tab PO 1 each DAILY SHAVONNE Administration Pantoprazole Sodium 40 mg 04/07/20 09:00 04/08/20 09:32 Pantoprazole 40 Mg Tablet PO 40 mg DAILY SHAVONNE Administration Intake and Output 04/08/20 04/09/20 04/09/20 22:59 06:59 14:59 Intake Total 222 Balance 222 Intake: Oral 222 Other: Voiding Method Toilet Toilet # Voids 2 1 Weight 94.3 kg 04/08/20 07:43 04/08/20 07:43
[2020-04-09] MEDS: methylPREDNISolone 4 MG TAB TAPER PO SCH (16:24)
[2020-04-09] MEDS ORDERED: WARFARIN 3 MG TAB PO ONE (18:00)
[2020-04-09] MEDS ORDERED: WARFARIN 7.5 MG TAB PO ONE (18:00)
[2020-04-09] MEDS: MAGNESIUM OXIDE 400 MG TAB PO SCH (20:27)
[2020-04-09] MEDS: IPRATROPIUM-ALBUTEROL 3 ML NEB INHALATION PRN (20:28)
--- NOTE | 2020-04-10 02:14 | PN ---
PROGRESS NOTE DATE OF SERVICE: 04/09/2020. REASON FOR FOLLOWUP: Fever and a question of gastroenteritis/pneumonia. INTERVAL HISTORY: The patient is currently afebrile. The patient is feeling better. Breathing comfortably. The patient still has a cough, which is dry in nature. Not bringing up any sputum. No chest pain. No abdominal pain. Diarrhea has slowed down, but not completely resolved. PHYSICAL EXAMINATION: Blood pressure 150/80 with a pulse of 92, temperature 99.2. He is 97% on room air. General description is a middle-aged male up in the room in no distress. RESPIRATORY SYSTEM: Unlabored breathing, decreased intense breath sounds. No wheeze. HEART: S1, S2. Regular rate and rhythm. ABDOMEN: Soft, no tenderness. LABS: BUN of 18, creatinine 0.79. Stool cultures pending. Blood culture are . White count normal. Chest x-ray with some pulmonary vascular congestion and hemidiaphragmatic paralysis. Stool culture pending. DIAGNOSTIC IMPRESSION AND PLAN: Patient with fever, respiratory symptoms on admission with concern for possible atypical pneumonia has been ruled out for COVID and Legionella with predominant gastrointestinal symptoms. Stool culture has been pending. The patient seemed to have clinically responded to the Levaquin and Flagyl to continue while waiting for the culture to finalize and monitor his clinical course closely. MMODL / IJN: [id number] /
[2020-04-10] MEDS: guaiFENesin-DM 100-10MG/5ML 10 ML CUP PO SCH ×4 (06:36→23:28)
[2020-04-10] MEDS: ACETAMINOPHEN TAB 325 MG TAB PO PRN (06:39)
[2020-04-10] MEDS: IPRATROPIUM-ALBUTEROL 3 ML NEB INHALATION PRN ×3 (07:24→15:16)
[2020-04-10 08:12] LABS: INR 2.2 (<1.2); Prothrombin Time 21.7 sec (9.0-12.0)
[2020-04-10 08:16] LABS: African American GFR (CKD) >90 (>60 ml/min/1.73 sqM); Anion Gap 6 mmol/L; Blood Urea Nitrogen 21 mg/dL (9-20); Calcium 9.1 mg/dL (8.4-10.2); Carbon Dioxide 30 mmol/L (22-30); Chloride 102 mmol/L (98-107); Glucose 131 mg/dL (74-99); Magnesium 1.9 mg/dL (1.6-2.3); Non-African American GFR(CKD) >90 (>60 ml/min/1.73 sqM); Potassium 3.8 mmol/L (3.5-5.1); Sodium 138 mmol/L (137-145)
[2020-04-10] MEDS: ASPIRIN 81 MG PO SCH (09:00)
[2020-04-10] MEDS: METOPROLOL TARTRATE 25 MG TAB PO SCH ×2 (09:00→20:16)
[2020-04-10] MEDS: PANTOPRAZOLE 40 MG TABLET PO SCH (09:00)
[2020-04-10] MEDS: CYANOCOBALAMIN 500 MCG TAB PO SCH (09:00)
[2020-04-10] MEDS: metroNIDAZOLE 500 MG TAB PO SCH ×3 (09:00→20:18)
[2020-04-10] MEDS: CHOLECALCIFEROL 1,000 UNIT TAB PO SCH (09:00)
[2020-04-10] MEDS: FERROUS SULFATE 325 MG TAB PO SCH (09:00)
[2020-04-10] MEDS: MULTIVITAMINS, THERA 1 EACH TAB PO SCH (09:00)
[2020-04-10] MEDS: LEVOFLOXACIN 750 MG TAB PO SCH (09:01)
[2020-04-10] MEDS: methylPREDNISolone 4 MG TAB TAPER PO SCH (09:01)
[2020-04-10] MEDS: VIT A,C & E-LUTEIN-MINERALS 1 EACH TAB PO SCH (09:02)
[2020-04-10] MEDS: CHLORTHALIDONE 25 MG TAB PO SCH (09:02)
[2020-04-10] MEDS: IOPAMIDOL CONTRAST (ORAL USE) VIAL PO PRN ×2 (11:42→12:38)
[2020-04-10] MEDS: POTASSIUM CHLORIDE ER 10 MEQ TAB.ER.PRT PO SCH (11:42)
[2020-04-10] MEDS: CHOLESTYRAMINE (WITH SUGAR) 4 GM PACKET PO SCH ×2 (11:42→18:33)
[2020-04-10] MEDS: HYDROCORTISONE 2.5% RECTAL CREAM 30 GM TUBE RECTAL SCH ×2 (11:43→20:16)
--- NOTE | 2020-04-10 11:58 | P.PN ---
Subjective HISTORY OF PRESENTING ILLNESS This is a pleasant 64-year-old male past medical history significant for aortic dissection status post repair, valvular heart disease status post mechanical aortic valve replacement, paroxysmal atrial fibrillation on long-term anticoagulation, hypertension, obstructive sleep apnea and former nicotine dependence. He follows in the office with Dr. Storm out of [facility]. He is seen and examined sitting up on the edge of the bed eating breakfast in no acute distress. He continues to have symptoms of orthopnea. He states he was wheezing a lot through the night. Currently has lungs are clear to auscultation. He did receive an albuterol inhaler this morning. Blood pressure 122/77 heart rate 105 afebrile maintaining oxygen saturation on nasal cannula. Laboratory data reviewed, INR 2.2, sodium 138, potassium 3.8, magnesium 1.9 and creatinine 0.81. Telemetry tracings unremarkable. PHYSICAL EXAMINATION CONSTITUTIONAL: No apparent distress. HEENT: Head is normocephalic. Pupils are equal, round. Sclerae anicteric. Mucous membranes of the mouth are moist. No JVD. No carotid bruit. CHEST EXAMINATION: Lungs are clear to auscultation. No chest wall tenderness is noted on palpation or with deep breathing. HEART EXAMINATION: Regular rate and rhythm. S1, S2 heard. Mechanical click he you at all listening points most prominent at the base, no murmurs, gallops or rub. EXTREMITIES: 2+ peripheral pulses, no lower extremity edema and no calf tenderness. ASSESSMENT Febrile illness Likely bacterial infection of unclear source with elevated pro-calcitonin Exertional dyspnea Hypokalemia Valvular heart disease s/p mechanical aortic valve replaement Peripheral vascular disease s/p aortic dissection and repair with endograft placement Hypertension Dyslipidemia Paroxysmal atrial fibrillation, currently in sinus mechanism. PLAN Continue current medical regimen, we will follow along as needed. Nurse Practitioner note has been reviewed, I agree with a documented findings and plan of care. Patient was seen and examined. Objective - Vital Signs Vital signs: Vital Signs Temp 97.7 F 04/10/20 08:00 Pulse 105 H 04/10/20 08:00 Resp 18 04/10/20 08:00 BP 122/77 04/10/20 08:00 Pulse Ox 94 L 04/10/20 08:00 Intake & Output 04/09/20 04/10/20 04/10/20 18:59 06:59 18:59 Intake Total 472 120 Output Total 650 300 Balance -178 -300 120 Weight 92.7 kg Intake: Oral 472 120 Output: Urine 650 300 Other: Voiding Method Toilet Toilet # Voids 4 1 0 # Bowel Movements 1 - Labs CBC & Chem 7: 04/08/20 07:43 04/10/20 07:39 Labs: Abnormal Lab Results - Last 24 Hours (Table) 04/10/20 04/10/20 Range/Units 07:39 07:39 PT 21.7 H (9.0-12.0) sec INR 2.2 H (<1.2) BUN 21 H (9-20) mg/dL Glucose 131 H (74-99) mg/dL Microbiology - Last 24 Hours (Table) 04/04/20 21:53 Blood Culture - Final Blood 04/07/20 18:30 Stool Culture - Preliminary Stool 04/06/20 09:14 Blood Culture - Preliminary Blood No Growth after 72 hours
--- NOTE | 2020-04-10 12:51 | P.PN ---
Subjective this is a pleasant 64 years old male with past medical history of hypertension, sleep apnea, aortic dissection status post repair, aortic valve replacement. He follows up with Dr. Martinez as his PCP, although he denies any history of lung tissue. He has a bag liner at trial FOR his aortic valvereplacement disease. This time patient presents with fever and upper respiratory symptoms. He has a sneezing, dry cough and and generalized body aches, mainly in his muscles associated with headache has been going on for about 3 days He denies chest pain or shortness of breath, however he has significant diarrhea 1 today which was watery-like, light brown with no blood. No abdominal pain or nausea vomiting No urinary complaints He denies smoking, alcohol or illicit drugs on admission he has a fever of 104.2, patient is breathing at 16-19 breath per minute, blood pressure 106/70 and his 96% on room air. labsShowing unremarkable WBC at 7.3K, unremarkable rest of CBC,no leukopenia, INR 2.4, sodium 136, creatinine is elevated at 1.7.liver enzymes not elevated. C-reactive protein elevated at 215, pro-calcitonin is elevated at 0.39. Urinalysis is getting concentrated but not obvious source of infection. Group A strep rapid is negative Chest x-ray: There is mild scarring and atelectasis in the left lung base slightly worse than last exam. No pulmonary consolidation. CTA of the chest:no PE. Descending thoracic aortic aneurysm increased 1 cm every maximum dimension compared to exam 5 years ago. Chronic aortic dissection similar to old exam in the emergency room patient was started on ibuprofen, no antibiotics. Normal saline at 130 mL/h. 04/06/2020 Patient is awake and alert, is breathing quietly but he still feeling chest tightness little worse this morning. And breathing therapy is provided for him. No chest pain or abdominal pain or nausea vomiting. Vitas looks stable. No fever since yesterday. His WBC came back to normal 7.0, hemoglobin slightly drop to 9.2, platelets also went down to 180 2K. It looks like patient has elements of hemoglobin delusion, sodium improved to 137. Selective for an is positive. C. diff is negative. covid test is negative, influenza test is negative. Urine Legionella test is pending. Appreciate infectious disease on pulmonary team input 04/07/2020 Patient sitting at bedside looks not in distress breathing quietly is still complaining of from significant coughing, Robitussin is added. This still have some abdominal discomfort and ongoing diarrhea, temperature today was low-grade fever only at 99.4. Labs looks stable and with no leukocytosis. Urine Legionella is negative. His INR today is went up to 1.8. As well as pro-calcitonin is increased, infectious disease team on the case and he switch his antibiotic from subtraction and Flagyl to Levaquin and Flagyl. We'll keep monitoring INR very closely as well as a lot of per meters. Patient got 4 mg of warfarin tonight. Consult cardiothoracic surgery for his history of aortic aneurysm status post repair 04/08/2020 Patient states he still short of breath today, he thinks cough medicine is helping him a little bit but he is complaining of from right shoulder pain, patient states that he has this pain for about a month from a tear but this pain is different, he has some limitation of present his arm above his head, no trauma or injury recently as per patient. His with no abdominal pain today. His stool is getting more formed, no loose stool like when he came in. However complains from hemorrhoids with some blood whenever he wipes. His CBC is stool culture are still pending. normal, creatinine is back to normal. Sodium 135 and potassium 3.3 04/09/2020 Patient breathing and coughing are looking better today is still have some loose stool. About 2-3 bowel movement since yesterday and they were loose Vital signs stable as well as BMP, INR today is 2.1 while patient is on Coumadin. Stool cultures are still pending. Gerontology Aide team were consulted and they are in the process of evaluating the patient. Echocardiogram showed ejection fraction of 60-65% with moderate pulmonary regurgitation Continue on Levaquin and Flagyl and warfarin. 04/10/2020 Patient says that medicine is helping him but it does not last long. He still have some exertional dyspnea. He had loose bowel movement about 3 pounds last night and one this morning but no abdominal pain or nausea vomiting. Vitals are stable. INR is 2.2 and BMP is unremarkable. C-reactive protein trending down significantly to 61, it was 363 about, 4 days ago. Stool cultures negative. Blood culture is negative. He was started on ceftriaxone today Patient was found by several consultants including infectious disease, pulmonary and cardiology teams Objective - Vital Signs Vital signs: Vital Signs Temp 97.8 F 04/10/20 11:52 Pulse 94 04/10/20 11:54 Resp 16 04/10/20 11:54 BP 139/94 04/10/20 11:52 Pulse Ox 97 04/10/20 11:52 Intake & Output 04/09/20 04/10/20 04/10/20 18:59 06:59 18:59 Intake Total 472 120 Output Total 650 300 Balance -178 -300 120 Weight 92.7 kg Intake: Oral 472 120 Output: Urine 650 300 Other: Voiding Method Toilet Toilet Toilet # Voids 4 1 0 # Bowel Movements 1 - Exam GENERAL: The patient is alert and oriented x3, not in any acute distress. Well developed, well nourished. HEENT: Pupils are round and equally reacting to light. EOMI. No scleral icterus. No conjunctival pallor. Normocephalic, atraumatic. No pharyngeal erythema. No thyromegaly. CARDIOVASCULAR: S1 and S2 present. No murmurs, rubs, or gallops. PULMONARY: Chest is clear to auscultation, no wheezing or crackles. ABDOMEN: Soft, nontender, nondistended, normoactive bowel sounds. No palpable organomegaly. MUSCULOSKELETAL: No joint swelling or deformity. EXTREMITIES: No cyanosis, clubbing, or pedal edema. NEUROLOGICAL: Gross neurological examination did not reveal any focal deficits. SKIN: No rashes. No petechiae - Labs CBC & Chem 7: 04/08/20 07:43 04/10/20 07:39 Labs: Abnormal Lab Results - Last 24 Hours (Table) 04/10/20 04/10/20 04/10/20 Range/Units 07:39 07:39 07:39 PT 21.7 H (9.0-12.0) sec INR 2.2 H (<1.2) BUN 21 H (9-20) mg/dL Glucose 131 H (74-99) mg/dL C-Reactive Protein 61.0 H (<10.0) mg/L Microbiology - Last 24 Hours (Table) 04/06/20 09:14 Blood Culture - Preliminary Blood No Growth after 96 hours 04/04/20 21:53 Blood Culture - Final Blood 04/07/20 18:30 Stool Culture - Preliminary Stool Assessment and Plan Assessment: upper respiratory Tract infection, mostly viral versus others systemic inflammatory response with fever and tachycardia, no leukocytosis or tachypnea Mostly sepsis . Suspected Secondary to acute gastroenteritis acute kidney injury, mostly prerenal, back to normal Right shoulder pain with recent history of right shoulder tear as per patient about one months ago Hemorrhoids Thoracic aortic aneurysm increased 1 cm from old exam with chronic aortic dissection Hypertension Sleep apnea History of aortic dissection status post repair and aortic valve replacement Plan: this is a pleasant 64 years old male who presents with fever and sepsis and URT symptoms and diarrhea. Continue with antibiotic Pulmonary and infectious disease were consulted,follow-up with their recommendation. Cardiology consult Continue with IV fluids with close monitoring of vitals and kidney function. To avoid nephrotoxins. Monitor blood pressure and try to avoid hypotension. follow-up urine legionella test Labs and medication were reviewed.. Continue same treatment. Continue with symptomatic treatment. Resume home medication. Monitor lytes and vitals. DVT and GI prophylaxis. Further recommendations depends on the clinical course of the patient DVT prophylaxis: Subcutaneous Lovenox GI Prophylaxis: Ppi
--- NOTE | 2020-04-10 13:29 | FL ---
EXAMINATION TYPE: FL sniff test without CXR DATE OF EXAM: 04/10/2020 COMPARISON: NONE HISTORY: Concern for right diaphragm paralysis. Shortness of breath. TECHNIQUE: Fluoroscopic sniff test. FINDINGS: Fluoroscopic guidance was provided during procedure performed by Dr. Ibanez. A total of 18 seconds of fluoroscopic time was utilized during the procedure and 7 spot images was acquired. There is normal movement of the bilateral hemidiaphragms. IMPRESSION: Normal diaphragm movement bilaterally.
--- NOTE | 2020-04-10 15:26 | CT ---
EXAMINATION TYPE: CT abdomen pelvis w con DATE OF EXAM: 04/10/2020 COMPARISON: Prior CT dated 12/01/2014 HISTORY: Diarrhea and abdomen pain, gram-negative bacteremia. CT DLP: 1954 mGycm Automated exposure control for dose reduction was used. TECHNIQUE: Helical acquisition of images from the lung bases through the pelvis have been completed. CONTRAST: Performed with Oral Contrast and with IV Contrast, patient injected with 100 mL of Isovue 300. FINDINGS: Right inguinal hernia contains fat. Smaller left inguinal hernia also contains fat. Patient is post median sternotomy. Surgical clips present in the right groin. LUNG BASES: Some basilar air bronchograms are noted along the right hemidiaphragm, right hemidiaphrag m is elevated. AORTA: The dissection flap noted within the left common iliac artery, descending thoracic aorta, abd ominal aorta and left external iliac artery is again noted, there is a stent coursing within the true lumen within the proximal descending aorta, dissection flap is noted at this level extending mediall y and coursing inside the side appearance as on prior CT as it courses more peripherally, celiac axis shows a similar appearance originating possibly from both the true lumen and false lumen, superior m esenteric artery shows origin calcification and extends from the true lumen. Inferior mesenteric felix ry extends from the true lumen level. At the level of the aorticopulmonary window multiple serpiginou s structures are noted likely representing collateralization and was seen on prior exam. Ascending ao rta shows postop change. There are coronary artery calcifications. Probable aortic valve replacement change also present. True and false lumen show similar densities. LIVER/GB: Dependent high density foci present within the gallbladder, the liver shows a stable appear ance. The liver is enlarged. PANCREAS: No significant abnormality is seen. SPLEEN: No significant abnormality is seen. ADRENALS: No significant abnormality is seen. KIDNEYS: No significant abnormality is seen. REPRODUCTIVE ORGANS: Prostate shows some associated calcification BOWEL: Retained fecal debris present throughout the distribution of the colon. Scattered diverticula r changes are also noted in the sigmoid. FREE AIR: No Free Air visible. ASCITES: None visible. PELVIC ADENOPATHY: None visualized. RETROPERITONEAL ADENOPATHY: No Retroperitoneal Adenopathy visible. URINARY BLADDER: Some bladder wall thickening is present possibly due to chronic bladder outlet obst ruction. OSSEOUS STRUCTURES: Degenerative disc changes, facet arthropathy noted especially in the lower lumba r spine. Suspect osteonecrosis change within the femoral heads as on prior IMPRESSION: CHRONIC DISSECTION, POSTOP CHANGES. CHOLELITHIASIS. CORRELATE FOR FECAL STASIS. DIVERTICULOSIS, BILAT ERAL INGUINAL HERNIAS HEPATOMEGALY.
--- NOTE | 2020-04-10 16:45 | P.PN ---
Subjective Progress Note Date: 04/10/20 Principal diagnosis: Acute febrile illness, sepsis 64-year-old white male patient with past medical history of hypertension, hypercholesterolemia, osteoarthritis, obstructive sleep apnea syndrome, iron deficiency anemia, history of aortic valve replacement with a mechanical valve and aortic aneurysm surgical repair, macular degeneration, previous history of CVA, who presented to the emergency department on 04/04/2020 with complaints of a headache, worsening fevers over the last to 3 days with T-max of 103 while at home, did have associated body aches, diarrhea. Patient denied any overt obvious exposures to anybody with the "with 19. He denied any abdominal pain. Does have a slightly sore throat and some tickling in his throat. Does have a mild cough no phlegm production. No chest pain. He was taken Motrin and Tylenol at home for symptom control. His chest x-ray showed some mild scarring and atelectasis at the left lung base, no pulmonary consolidation. CT brain was completed showing normal head CT. His lab work was reviewed, showing normal white count of 7.3, hemoglobin 14.9, patient does have lymphopenia with a lymphocyte count 0.4, INR is 2.4, d-dimer was 1.02, electrolytes were unremarkable, B1 is 25 creatinine is 1.27, plasma lactic acid was 1, ferritin was within normal limits, LDH was 801, CRP was 215, protein acetone was elevated to 0.39. Group A strep was negative, urinalysis showed 1+ protein, trace blood, but no clear evidence of urinary tract infection. Patient has been febrile since admission for most of the day today, his T-max in last 24 hours 104.2. He is on room air, his pulse ox 96%, blood pressure stable, patient is tachycardic in the low 100s. EKG showed sinus tachycardia. Patient was started on IV hydration with 0.9 normal seen at a rate of 1:30 ML per hour, we started antibiotic coverage in the form of Rocephin, : 19 PCR was sent, blood cultures have been sent, influenza screen was sent. Patient is awake and alert, oriented 3, given history of present illness. Appears to be no distress, denies any shortness of breath. The patient is seen today 04/06/2020 in follow-up on the selective care unit. He is currently sitting up at the bedside. Awake and alert in no acute distress. He is maintaining O2 saturation in the mid 90s on room air. He's been afebrile. White count 5.5. Hemoglobin 13.1. INR 1.6. Sodium 132. Potassium 3.4. Creatinine 1.18. C-reactive protein 363. C. difficile screen negative. Current virus by PCR negative. Influenza A/B negative. Rapid strep negative. Blood culture reveals no growth to date. He is currently on ceftriaxone. Levaquin has been added. The patient is seen today 04/07/2020 in follow-up on selective care unit. He is currently up ambulating in the room. Awake and alert in no acute distress. Breathing bit easier today compared to yesterday. Continues with a low grade temperature currently 99.4. Calcitonin 0.9. CRP elevated. Microbiology r evealing no growth thus far. White count 6.6. Hemoglobin 13.6. INR 1.8. Sodium 134. Potassium 3.5. Creatinine 0.99. Urine legionella antigen negative. He remains on ceftriaxone and Levaquin. The patient is seen today 04/08/2020 in follow-up on the selective care unit. He is currently sitting up at the bedside. Awake and alert in no acute distress. No worsening shortness of breath, cough or congestion. Still with some dyspnea on exertion. Suspect some bronchitis. He is currently afebrile. Maintaining O2 saturations in the mid 90s on 2 L/m per nasal cannula. Hemodynamically stable. Blood cultures revealed no growth. Throat culture reveals no growth. Follow-up blood cultures reveal no growth. Stool culture is pending. White count 6.1. Hemoglobin 12.5. INR 2.1. Sodium 135. Potassium 3.3. Creatinine 0.81. Stool lactoferrin was positive. He is currently on Questran, Flagyl, Levaquin. The patient is seen today 04/09/2020 in follow-up on the selective care unit. He is awake and alert in no acute distress. Chest x-ray continues to reveal evidence of a right hemidiaphragm elevation. Noted endovascular stent graft of the distal arch and a descending thoracic aorta. There is interstitial changes slightly more pronounced, possible pulmonary vascular congestion. INR 2.1. Sodium 136. Potassium 3.5. Creatinine 0.79. He remains on Levaquin, Flagyl, bronchodilators. On 04/10/2020 patient seen in follow-up on selective care unit, denies any respiratory difficulty, he has no significant cough or congestion, remains on antibiotics in the form of Rocephin, chest x-ray shows a tissue changes correlating for possible mild pulmonary vascular congestion, and elevated right hemidiaphragm with possible hemidiaphragmatic paralysis. His breathing is comfortable. He denies any abdominal pain. No nausea or vomiting. Is having loose stools. Stool cultures are pending. ID service is following, CT of abdomen and pelvis ordered. Cardiology is following, echocardiogram showed ejection fraction of 60-65% with moderate pulmonary regurgitation, current anti biotic coverage with Levaquin and Flagyl. This was obtained showing normal diaphragm movement bilaterally. CT of abdomen and pelvis completed for the reason of gram-negative bacteremia with final cultures pending and showed cholelithiasis, possible fecal stasis, diverticulosis, bilateral inguinal hernia and hepatomegaly. Objective - Vital Signs Vital signs: Vital Signs Temp 97.8 F 04/10/20 11:52 Pulse 87 04/10/20 15:28 Resp 16 04/10/20 11:54 BP 139/94 04/10/20 11:52 Pulse Ox 97 04/10/20 11:52 Intake & Output 04/09/20 04/10/20 04/10/20 18:59 06:59 18:59 Intake Total 472 120 Output Total 650 300 Balance -178 -300 120 Weight 92.7 kg Intake: Oral 472 120 Output: Urine 650 300 Other: Voiding Method Toilet Toilet Toilet # Voids 4 1 0 # Bowel Movements 1 - Exam GENERAL EXAM: Alert, very pleasant white male, 2 L of oxygen and the pulse ox 97% comfortable in no apparent distress. HEAD: Normocephalic/atraumatic. EYES: Normal reaction of pupils, equal size. Conjunctiva pink, sclera white. NOSE: Clear with pink turbinates. THROAT: No erythema or exudates. NECK: No masses, no JVD, no thyroid enlargement, no adenopathy. CHEST: No chest wall deformity. Symmetrical expansion. LUNGS: Equal air entry with no crackles, wheeze, rhonchi or dullness. CVS: Regular rate and rhythm, normal S1 and S2, no gallops, no murmurs, no rubs ABDOMEN: Soft, nontender. No hepatosplenomegaly, normal bowel sounds, no guardi ng or rigidity. EXTREMITIES: No clubbing, no edema, no cyanosis, 2+ pulses and upper and lower extremities. MUSCULOSKELETAL: Muscle strength and tone normal. SPINE: No scoliosis or deformity SKIN: No rashes CENTRAL NERVOUS SYSTEM: Alert and oriented -3. No focal deficits, tone is normal in all 4 extremities. PSYCHIATRIC: Alert and oriented -3. Appropriate affect. Intact judgment and insight. - Labs CBC & Chem 7: 04/08/20 07:43 04/10/20 07:39 Labs: Abnormal Lab Results - Last 24 Hours (Table) 04/10/20 04/10/20 04/10/20 Range/Units 07:39 07:39 07:39 PT 21.7 H (9.0-12.0) sec INR 2.2 H (<1.2) BUN 21 H (9-20) mg/dL Glucose 131 H (74-99) mg/dL C-Reactive Protein 61.0 H (<10.0) mg/L Microbiology - Last 24 Hours (Table) 04/04/20 21:53 Blood Culture Gram Stain - Preliminary Blood Blood Culture - Preliminary Gram Neg Bacilli 04/06/20 09:14 Blood Culture - Preliminary Blood No Growth after 96 hours 04/04/20 21:53 Blood Culture - Final Blood 04/07/20 18:30 Stool Culture - Preliminary Stool Assessment and Plan Plan: Assessment: #1. Acute febrile illness with symptoms of body aches, limited cough, sore throat, diarrhea, and headaches, rule out Covid 19. Influenza screen is pending, group A strep was negative. Chest x-ray showed mild scarring and atelectasis at the left lung base, no pulmonary consolidation. #2. Gram-negative bacteremia, final cultures pending, possibly related to cholelithiasis #3. Elevated pro-calcitonin suggesting possibility of bacterial infection with unclear source, he was empirically covered with Rocephin #4. Increased inflammatory markers including LDH and CRP, rule out possibility of Covid 19 #5. Elevated d-dimer, with no CTA chest evidence of pulmonary embolism #6. History of aortic valve replacement with a mechanical valve on Coumadin therapy #7. History of aortic aneurysm with history of aortic dissection requiring surgical repair #8. History of MRSA infection in the wound on the right heel in 2018 #9. History of obstructive sleep apnea on CPAP therapy #10. History of hypertension #11. Hypercholesterolemia #12. Former smoker Plan: In regards per ID service recommendations, sniff test was obtained showing no abnormality in the hemidiaphragms bilaterally, wean FiO2, continue current medical treatment, CT of abdomen and pelvis results have been reviewed, ID service is following, will await further recommendations. he has been afebrile. Continue monitoring febrile pattern, vital signs, worsening dyspnea. We'll continue to follow Recommendations. I performed a history & physical examination of the patient and discussed their management with my nurse practitioner, Aicha Gavin. I reviewed the nurse practitioner's note and agree with the documented findings and plan of care. Lung sounds are positive for diminished breath sounds. The findings and the impression was discussed with the patient. I attest to the documentation by the nurse practitioner. Time with Patient: Less than 30
[2020-04-10] MEDS ORDERED: WARFARIN 7.5 MG TAB PO ONE (18:00)
[2020-04-10] MEDS: ALBUTEROL HFA INHALER INHALATION PRN (19:19)
[2020-04-10] MEDS: MAGNESIUM OXIDE 400 MG TAB PO SCH (20:16)
[2020-04-10] MEDS: BENZONATATE 100 MG CAP PO PRN (20:53)
[2020-04-10] MEDS ORDERED: NON FORMULARY DRUG (Warfarin Sodium [Coumadin] 4 MG Tablet) PO SCH (21:00)
[2020-04-10] MEDS ORDERED: WARFARIN 1 MG TAB PO ONE (21:15)
--- NOTE | 2020-04-11 00:35 | PN ---
PROGRESS NOTE DATE OF SERVICE: 04/10/2020 REASON FOR FOLLOWUP: Fever and Gram-negative bacteremia. INTERVAL HISTORY: The patient is currently afebrile. The patient is breathing more comfortably. Patient denies having any chest pain. He did have a cough, not bringing up any sputum. No nausea. No vomiting. No abdominal pain. Diarrhea has slowed down. PHYSICAL EXAMINATION: Blood pressure 129/70 with a pulse of 90, temperature 98.8. He is 92% on room air. General description is a middle-aged male up in the room in no distress. RESPIRATORY SYSTEM: Unlabored breathing, decreased breath sounds at bases. No wheeze. HEART: S1, S2. Regular rate and rhythm. ABDOMEN: Soft, no tenderness. LABS: Procalcitonin 0.14, improved from initial high of 0.95. Blood culture now currently positive Gram-negative bacilli. DIAGNOSTIC IMPRESSION AND PLAN: Patient admitted to the hospital with fever, symptom also with cough, now with evidence of gram-negative bacteremia. Will wait for the final ID of this pathogen. CT of abdomen and pelvis was done did not show any intraabdominal source of this bacteremia and there was no evidence of any inflammation with some air bronchogram at the lung bases. Antibiotic has been adjusted to Rocephin with further adjustment based on final ID of this pathogen. Continue with supportive care. MMODL / IJN: [id number] /
[2020-04-11] MEDS: BENZONATATE 100 MG CAP PO PRN ×3 (06:07→23:23)
[2020-04-11] MEDS: ACETAMINOPHEN TAB 325 MG TAB PO PRN ×2 (06:07→22:09)
[2020-04-11] MEDS: guaiFENesin-DM 100-10MG/5ML 10 ML CUP PO SCH ×4 (06:08→23:23)
[2020-04-11] MEDS: ALBUTEROL HFA INHALER INHALATION PRN (08:22)
[2020-04-11 08:54] LABS: African American GFR (CKD) >90 (>60 ml/min/1.73 sqM); Anion Gap 8 mmol/L; Blood Urea Nitrogen 21 mg/dL (9-20); Calcium 9.2 mg/dL (8.4-10.2); Carbon Dioxide 30 mmol/L (22-30); Chloride 102 mmol/L (98-107); Glucose 141 mg/dL (74-99); Non-African American GFR(CKD) >90 (>60 ml/min/1.73 sqM); Potassium 3.7 mmol/L (3.5-5.1); Sodium 140 mmol/L (137-145)
[2020-04-11 09:00] LABS: INR 3.6 (<1.2); Prothrombin Time 35.1 sec (9.0-12.0)
[2020-04-11 09:14] LABS: Basophils # (A) 0.1 k/uL (0-0.2); Basophils % (A) 1 %; Eosinophils # (A) 0.1 k/uL (0-0.7); Eosinophils % (A) 1 %; HCT 43.2 % (39.0-53.0); HGB 13.9 gm/dL (13.0-17.5); Lymphocytes # (A) 1.9 k/uL (1.0-4.8); Lymphocytes % (A) 16 %; MCH 29.3 pg (25.0-35.0); MCHC 32.1 g/dL (31.0-37.0); MCV 91.4 fL (80.0-100.0); Mean Platelet Volume 6.7; Monocytes # (A) 0.7 k/uL (0-1.0); Monocytes % (A) 6 %; Neutrophils # (A) 8.2 k/uL (1.3-7.7); Neutrophils % (A) 72 %; Platelet Count 343 k/uL (150-450); RBC 4.73 m/uL (4.30-5.90); RDW 13.2 % (11.5-15.5); WBC 11.4 k/uL (3.8-10.6)
[2020-04-11] MEDS: CHOLESTYRAMINE (WITH SUGAR) 4 GM PACKET PO SCH ×2 (09:47→17:49)
[2020-04-11] MEDS: VIT A,C & E-LUTEIN-MINERALS 1 EACH TAB PO SCH (09:47)
[2020-04-11] MEDS: CHLORTHALIDONE 25 MG TAB PO SCH (09:48)
[2020-04-11] MEDS: CHOLECALCIFEROL 1,000 UNIT TAB PO SCH (09:48)
[2020-04-11] MEDS: CYANOCOBALAMIN 500 MCG TAB PO SCH (09:49)
[2020-04-11] MEDS: FERROUS SULFATE 325 MG TAB PO SCH (09:49)
[2020-04-11] MEDS: PANTOPRAZOLE 40 MG TABLET PO SCH (09:49)
[2020-04-11] MEDS: metroNIDAZOLE 500 MG TAB PO SCH ×3 (09:49→22:09)
[2020-04-11] MEDS: POTASSIUM CHLORIDE ER 10 MEQ TAB.ER.PRT PO SCH (09:49)
[2020-04-11] MEDS: METOPROLOL TARTRATE 25 MG TAB PO SCH ×2 (09:49→22:09)
[2020-04-11] MEDS: ASPIRIN 81 MG PO SCH (09:50)
[2020-04-11] MEDS: methylPREDNISolone 4 MG TAB TAPER PO SCH (09:50)
[2020-04-11] MEDS: MULTIVITAMINS, THERA 1 EACH TAB PO SCH (09:50)
[2020-04-11] MEDS: HYDROCORTISONE 2.5% RECTAL CREAM 30 GM TUBE RECTAL SCH ×2 (09:51→22:09)
--- NOTE | 2020-04-11 12:32 | P.PN ---
Subjective this is a pleasant 64 years old male with past medical history of hypertension, sleep apnea, aortic dissection status post repair, aortic valve replacement. He follows up with Dr. Martinez as his PCP, although he denies any history of lung tissue. 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 This time patient presents with fever and upper respiratory symptoms. He has a sneezing, dry cough and and generalized body aches, mainly in his muscles associated with headache has been going on for about 3 days He denies chest pain or shortness of breath, however he has significant diarrhea 1 today which was watery-like, light brown with no blood. No abdominal pain or nausea vomiting No urinary complaints He denies smoking, alcohol or illicit drugs on admission he has a fever of 104.2, patient is breathing at 16-19 breath per minute, blood pressure 106/70 and his 96% on room air. labsShowing unremarkable WBC at 7.3K, unremarkable rest of CBC,no leukopenia, INR 2.4, sodium 136, creatinine is elevated at 1.7.liver enzymes not elevated. C-reactive protein elevated at 215, pro-calcitonin is elevated at 0.39. Urinalysis is getting concentrated but not obvious source of infection. Group A strep rapid is negative Chest x-ray: There is mild scarring and atelectasis in the left lung base slightly worse than last exam. No pulmonary consolidation. CTA of the chest:no PE. Descending thoracic aortic aneurysm increased 1 cm every maximum dimension compared to exam 5 years ago. Chronic aortic dissection similar to old exam in the emergency room patient was started on ibuprofen, no antibiotics. Normal saline at 130 mL/h. 04/06/2020 Patient is awake and alert, is breathing quietly but he still feeling chest tightness little worse this morning. And breathing therapy is provided for him. No chest pain or abdominal pain or nausea vomiting. Vitas looks stable. No fever since yesterday. His WBC came back to normal 7.0, hemoglobin slightly drop to 9.2, platelets also went down to 180 2K. It looks like patient has elements of hemoglobin delusion, sodium improved to 137. Selective for an is positive. C. diff is negative. covid test is negative, influenza test is negative. Urine Legionella test is pending. Appreciate infectious disease on pulmonary team input 04/07/2020 Patient sitting at bedside looks not in distress breathing quietly is still complaining of from significant coughing, Robitussin is added. This still have some abdominal discomfort and ongoing diarrhea, temperature today was low-grade fever only at 99.4. Labs looks stable and with no leukocytosis. Urine Legionella is negative. His INR today is went up to 1.8. As well as pro-calcitonin is increased, infectious disease team on the case and he switch his antibiotic from subtraction and Flagyl to Levaquin and Flagyl. We'll keep monitoring INR very closely as well as a lot of per meters. Patient got 4 mg of warfarin tonight. Consult cardiothoracic surgery for his history of aortic aneurysm status post repair 04/08/2020 Patient states he still short of breath today, he thinks cough medicine is helping him a little bit but he is complaining of from right shoulder pain, patient states that he has this pain for about a month from a tear but this pain is different, he has some limitation of present his arm above his head, no trauma or injury recently as per patient. His with no abdominal pain today. His stool is getting more formed, no loose stool like when he came in. However complains from hemorrhoids with some blood whenever he wipes. His CBC is stool culture are still pending. normal, creatinine is back to normal. Sodium 135 and potassium 3.3 04/09/2020 Patient breathing and coughing are looking better today is still have some loose stool. About 2-3 bowel movement since yesterday and they were loose Vital signs stable as well as BMP, INR today is 2.1 while patient is on Coumadin. Stool cultures are still pending. [facility] [facility] team were consulted and they are in the process of evaluating the patient. Echocardiogram showed ejection fraction of 60-65% with moderate pulmonary regurgitation Continue on Levaquin and Flagyl and warfarin. 04/10/2020 Patient says that medicine is helping him but it does not last long. He still have some exertional dyspnea. He had loose bowel movement about 3 pounds last night and one this morning but no abdominal pain or nausea vomiting. Vitals are stable. INR is 2.2 and BMP is unremarkable. C-reactive protein trending down significantly to 61, it was 363 about, 4 days ago. Stool cultures negative. Blood culture is negative. He was started on ceftriaxone today Patient was found by several consultants including infectious disease, pulmonary and cardiology teams 04/11/2020 Patient states that his breathing is better with less dyspnea and his diarrhea is improving but are not resolved. Patient is walking in the room freely and he is asking when he can go home. Patient was updated about the problem, plan and the positive blood culture. WBCs 11.4. However Medrol dose pack was added. He is still on warfarin which is going to be adjusted today because INR went to 3.6.(target INR is 2.5-3.5) Patient is currently covered with Flagyl and IV ceftriaxone. Pro-calcitonin is trending down 0.95 down to 0.14. Several consultants on the case Objective - Vital Signs Vital signs: Vital Signs Temp 98.9 F 04/11/20 08:10 Pulse 93 04/11/20 08:10 Resp 16 04/11/20 08:10 BP 122/70 04/11/20 08:10 Pulse Ox 93 L 04/11/20 08:10 Intake & Output 04/10/20 04/11/20 04/11/20 18:59 06:59 18:59 Intake Total 240 450 120 Balance 240 450 120 Weight 92.8 kg Intake: Oral 240 450 120 Other: Voiding Method Toilet Toilet # Voids 0 2 - Exam GENERAL: The patient is alert and oriented x3, not in any acute distress. Well developed, well nourished. HEENT: Pupils are round and equally reacting to light. EOMI. No scleral icterus. No conjunctival pallor. Normocephalic, atraumatic. No pharyngeal erythema. No thyromegaly. CARDIOVASCULAR: S1 and S2 present. No murmurs, rubs, or gallops. PULMONARY: Chest is clear to auscultation, no wheezing or crackles. ABDOMEN: Soft, nontender, nondistended, normoactive bowel sounds. No palpable organomegaly. MUSCULOSKELETAL: No joint swelling or deformity. EXTREMITIES: No cyanosis, clubbing, or pedal edema. NEUROLOGICAL: Gross neurological examination did not reveal any focal deficits. SKIN: No rashes. No petechiae - Labs CBC & Chem 7: 04/11/20 07:58 04/11/20 07:58 Labs: Abnormal Lab Results - Last 24 Hours (Table) 04/10/20 04/11/20 04/11/20 Range/Units 12:34 07:58 07:58 WBC (3.8-10.6) k/uL Neutrophils # (1.3-7.7) k/uL PT 35.1 H (9.0-12.0) sec INR 3.6 H (<1.2) BUN 21 H (9-20) mg/dL Glucose 141 H (74-99) mg/dL Procalcitonin 0.14 H (0.02-0.09) ng/mL 04/11/20 Range/Units 07:58 WBC 11.4 H (3.8-10.6) k/uL Neutrophils # 8.2 H (1.3-7.7) k/uL PT (9.0-12.0) sec INR (<1.2) BUN (9-20) mg/dL Glucose (74-99) mg/dL Procalcitonin (0.02-0.09) ng/mL Microbiology - Last 24 Hours (Table) 04/06/20 09:14 Blood Culture - Preliminary Blood No Growth after 120 hours 04/04/20 21:53 Blood Culture Gram Stain - Preliminary Blood Blood Culture - Preliminary Gram Neg Bacilli 04/07/20 18:30 Stool Culture - Final Stool 04/04/20 21:53 Blood Culture - Final Blood Assessment and Plan Assessment: upper respiratory Tract infection, mostly viral versus others systemic inflammatory response with fever and tachycardia, no leukocytosis or tachypnea Mostly sepsis . Suspected Secondary to acute gastroenteritis acute kidney injury, mostly prerenal, back to normal Right shoulder pain with recent history of right shoulder tear as per patient about one months ago Hemorrhoids Thoracic aortic aneurysm increased 1 cm from old exam with chronic aortic dissection Hypertension Sleep apnea History of aortic dissection status post repair and aortic valve replacement Plan: this is a pleasant 64 years old male who presents with fever and sepsis and URT symptoms and diarrhea. Continue with antibiotic Pulmonary and infectious disease were consulted,follow-up with their recommendation. Cardiology consult Continue with IV fluids with close monitoring of vitals and kidney function. To avoid nephrotoxins. Monitor blood pressure and try to avoid hypotension. follow-up urine legionella test Labs and medication were reviewed.. Continue same treatment. Continue with symptomatic treatment. Resume home medication. Monitor lytes and vitals. DVT and GI prophylaxis. Further recommendations depends on the clinical course of the patient DVT prophylaxis: Subcutaneous Lovenox GI Prophylaxis: Ppi
[2020-04-11 14:51] VITALS: BMI 31.1
--- NOTE | 2020-04-11 15:04 | P.GSCN ---
History of Present Illness Consult date: 04/11/20 Reason for Consult: Aortic aneurysm Requesting physician: Von E Sheet History of present illness: This is a pleasant 64-year-old male past medical history significant for aortic dissection status post repair, valvular heart disease status post mechanical aortic valve replacement, paroxysmal atrial fibrillation on long-term anticoagulation, hypertension, obstructive sleep apnea and former nicotine dependence. He follows in the office with Dr. Storm out of [facility]. We have been asked to see in consultation for aortic aneurysm/dissection. The patient presented to the hospital early last week with symptoms of fever, diarrhea and headache. He is currently being treated for suspected bacterial infection of unclear source. ID is following. Initially on admission he had no shortness of breath, however in the last few days he has developed some exertional shortnses of breath and orthopnea. He stateshis breathing ok at rest and back and forth to the bathroom but much more than that and he feels dyspneic and tired. He has also been having diarrhea which is improving, states he's having 3-4 episodes of loose stools daily. He tested negative for downey virus and Clostridium differential difficle toxin. He denies symptoms of chest pain, dizziness or palpitations. He also denies any abdominal pain, back pain, pain down the lower extremities or pain with relation to bilateral lower extremities. He denies any symptoms of claudication. Echocardiogram obtained reveals preserved LV systolic function with ejection fraction 60-65%, severely dilated left atrium, normally functioning mechanical prosthetic valve with a mean gradient of 8 mmHg, mild TR and moderate pulmonic regurgitation noted. The patient had a CT angiogram of the chest on 04/04/2020 which showed no evidence o f pulmonary embolism. There is a descending thoracic aortic aneurysm measuring up to 5.4 cm, increased 1 cm in the maximum dimension compared to exam 5 years ago. Chronic aortic dissection similar to old exam. CT of abdomen and pelvis showed chronic dissection, postop changes. Cholelithiasis. Correlate for fecal stasis. Diverticulosis, bilateral inguinal hernias, and hepatomegaly. Review of Systems 14 point review of systems was completed and all pertinent positives and negatives as stated in the HPI. Past Medical History Past Medical History: Hypertension, Sleep Apnea/CPAP/BIPAP, Sleep Apnea/CPAP/BIPAP Additional Past Medical History / Comment(s): BILAT CATARACTS, Aortic dissection,. HX FX RT FOOT 12/24/16. RT HEEL WOUND, History of Any Multi-Drug Resistant Organisms: MRSA Year Discovered:: 2017 MDRO Source:: r heel Past Surgical History: Joint Replacement Additional Past Surgical History / Comment(s): aortic aneurysm repair, aortic heart valve replacement, aortic disection, total left knee replacedCOLONOSCOPY, RT FOOT SURGERY-HAS PLATE AND 10 PINS Past Anesthesia/Blood Transfusion Reactions: No Reported Reaction Additional Past Anesthesia/Blood Transfusion Reaction / Comm: Pt has received blood without reaction with aortic vessel surgery. Past Psychological History: No Psychological Hx Reported Smoking Status: Former smoker Past Alcohol Use History: Rare Past Drug Use History: None Reported - Past Family History Father Family Medical History: Cancer Additional Family Medical History / Comment(s): lung CA Mother Family Medical History: Myocardial Infarction (SC) Additional Family Medical History / Comment(s): Possible SC. Mother is . Brother(s) Family Medical History: Cancer Additional Family Medical History / Comment(s): throat Medications and Allergies Home Medications Medication Instructions Recorded Confirmed Type Aspirin EC [Ecotrin Low Dose] 81 mg PO DAILY 12/01/14 04/04/20 History Ferrous Sulfate [Iron (65 MG 325 mg PO DAILY 12/01/14 04/04/20 History Elemental)] Multivit-Min/FA/Lycopene/Lut 1 each PO DAILY 12/01/14 04/04/20 History [Centrum Silver Tablet] Vit C/E/Zn/Coppr/Lutein/Zeaxan 1 each PO DAILY 12/01/14 04/04/20 History [Preservision Areds 2 Softgel] ALPRAZolam [Xanax] 0.25 mg PO QAM PRN 04/11/17 04/04/20 History Cyanocobalamin (Vitamin B-12) 2,500 mcg PO DAILY 04/11/17 04/04/20 History [Vitamin B12] Warfarin Sodium [Coumadin] 4 mg PO MO@209904/11/17 04/04/20 History Warfarin Sodium [Coumadin] 6 mg PO SUTUWEFRSA@209904/11/17 04/04/20 History Chlorthalidone [Hygroton] 12.5 mg PO QAM 04/04/20 04/04/20 History Cholecalciferol [Vitamin D3 (25 2,000 unit PO DAILY 04/04/20 04/04/20 History Mcg = 1000 Iu)] Evolocumab [Repatha Sureclick] 140 mg INJ Q14D 04/04/20 04/04/20 History Losartan Potassium [Cozaar] 50 mg PO BID 04/04/20 04/04/20 History Magnesium 250 mg PO HS 04/04/20 04/04/20 History Metoprolol Tartrate [Lopressor] 25 mg PO BID 04/04/20 04/04/20 History Tadalafil [Cialis] 10 mg PO DIRECTED PRN 04/04/20 04/04/20 History Allergies Allergy/AdvReac Type Severity Reaction Status Date / Time copper Allergy Rash/Hives Verified 04/04/20 23:48 Sulfa (Sulfonamide Allergy Swelling Verified 04/04/20 23:48 Antibiotics) Surgical - Exam Vital Signs Temp Pulse Resp BP Pulse Ox 103.0 F H 124 H 18 122/71 93 L 04/04/20 20:26 04/04/20 20:26 04/04/20 20:26 04/04/20 20:26 04/04/20 20:26 General appearance: The patient is alert, oriented, in no acute distress. HET: Head is normocephalic and atraumatic. Pupils are equal and reactive. Oropharynx is clear without lesions. Neck: Supple without lymphadenopathy. Trachea midline. No carotid bruit b ilaterally Heart: S1 S2. Regular rate and rhythm. Lungs: No crackles or wheezes are heard. Abdomen: Soft, nontender, nondistended with bowel sounds. Extremities: Normal skin color and turgor. No cyanosis, rash, ulceration, clubbing, or edema. Radial pulses 2 /4 and laterally. Palpable bilateral femoral and DP pulses. Good capillary refill. Bilateral lower extremities warm to touch. Neurological: No focal deficits. Strength and sensation are grossly intact. Results Echocardiogram obtained reveals preserved LV systolic function with ejection fraction 60-65%, severely dilated left atrium, normally functioning mechanical prosthetic valve with a mean gradient of 8 mmHg, mild TR and moderate pulmonic regurgitation noted. CT angiogram of the chest on 04/04/2020 which showed no evidence of pulmonary embolism. There is a descending thoracic aortic aneurysm measuring up to 5.4 cm, increased 1 cm in the maximum dimension compared to exam 5 years ago. Chronic aortic dissection similar to old exam. CT of abdomen and pelvis showed chronic dissection, postop changes. Cholelithiasis. Correlate for fecal stasis. Diverticulosis, bilateral inguinal hernias, and hepatomegaly. - Labs 04/11/20 07:58 04/11/20 07:58 Abnormal Lab Results - Last 24 Hours (Table) 04/10/20 04/11/20 04/11/20 Range/Units 12:34 07:58 07:58 WBC (3.8-10.6) k/uL Neutrophils # (1.3-7.7) k/uL PT 35.1 H (9.0-12.0) sec INR 3.6 H (<1.2) BUN 21 H (9-20) mg/dL Glucose 141 H (74-99) mg/dL Procalcitonin 0.14 H (0.02-0.09) ng/mL 04/11/20 Range/Units 07:58 WBC 11.4 H (3.8-10.6) k/uL Neutrophils # 8.2 H (1.3-7.7) k/uL PT (9.0-12.0) sec INR (<1.2) BUN (9-20) mg/dL Glucose (74-99) mg/dL Procalcitonin (0.02-0.09) ng/mL Microbiology - Last 24 Hours (Table) 04/06/20 09:14 Blood Culture - Preliminary Blood No Growth after 120 hours 04/04/20 21:53 Blood Culture Gram Stain - Preliminary Blood Blood Culture - Preliminary Gram Neg Bacilli 04/07/20 18:30 Stool Culture - Final Stool Diabetes panel 04/11/20 Range/Units 07:58 Sodium 140 (137-145) mmol/L Potassium 3.7 (3.5-5.1) mmol/L Chloride 102 (98-107) mmol/L Carbon Dioxide 30 (22-30) mmol/L BUN 21 H (9-20) mg/dL Creatinine 0.80 (0.66-1.25) mg/dL Glucose 141 H (74-99) mg/dL Calcium 9.2 (8.4-10.2) mg/dL Calcium panel 04/11/20 Range/Units 07:58 Calcium 9.2 (8.4-10.2) mg/dL Pituitary panel 04/11/20 Range/Units 07:58 Sodium 140 (137-145) mmol/L Potassium 3.7 (3.5-5.1) mmol/L Chloride 102 (98-107) mmol/L Carbon Dioxide 30 (22-30) mmol/L BUN 21 H (9-20) mg/dL Creatinine 0.80 (0.66-1.25) mg/dL Glucose 141 H (74-99) mg/dL Calcium 9.2 (8.4-10.2) mg/dL Adrenal panel 04/11/20 Range/Units 07:58 Sodium 140 (137-145) mmol/L Potassium 3.7 (3.5-5.1) mmol/L Chloride 102 (98-107) mmol/L Carbon Dioxide 30 (22-30) mmol/L BUN 21 H (9-20) mg/dL Creatinine 0.80 (0.66-1.25) mg/dL Glucose 141 H (74-99) mg/dL Calcium 9.2 (8.4-10.2) mg/dL Assessment and Plan (1) Descending thoracic aortic aneurysm Narrative/Plan: The patient was discussed with Dr. Gibson. Dr. Gibson to review CT angiogram and CT of abdomen and pelvis. The patient is asymptomatic. He has an upcoming appointment with his cardiac surgeon Dr. Storm with [facility] on Friday. Further recommendations to follow. Thank you for this kind referral and the opportunity to participate in the care of your patient. This consultation was discussed with Dr. Gibson. The impression and plan of care have been directed as dictated. Current Visit: Yes Status: Acute Code(s): I71.2 - THORACIC AORTIC ANEURYSM, WITHOUT RUPTURE SNOMED Code(s): 3503941014189 (2) Fever Current Visit: Yes Status: Acute Code(s): R50.9 - FEVER, UNSPECIFIED SNOMED Code(s): 493451207 (3) S/P AVR (aortic valve replacement) Current Visit: No Status: Acute Code(s): Z95.2 - PRESENCE OF PROSTHETIC HEART VALVE SNOMED Code(s): 2098883416553 (4) S/P ascending aortic aneurysm repair Current Visit: No Status: Acute Code(s): Z98.89 - OTHER SPECIFIED POSTPROCEDURAL STATES * DO NOT USE * SNOMED Code(s): 064617138
--- NOTE | 2020-04-11 15:45 | PN ---
PROGRESS NOTE PULMONARY/CRITICAL CARE PROGRESS NOTE: DATE OF SERVICE: 04/11/2020 This is a 64-year-old gentleman who was admitted back on April 04. The patient was admitted with a diagnosis of possible underlying sepsis and acute febrile illness. Gram-negative bacilli were discovered in his blood. The identification of bacteria is not known. Anyway, the patient had multiple complaints including body aches, cough, sore throat, diarrhea, and headaches. His COVID-19 testing was negative. He had a CT of the abdomen and pelvis which showed evidence of cholelithiasis, but no acute cholecystitis. His chest x-ray was essentially normal. The patient did have a sniff test. It was negative. He does have a history of previous tobacco use, hyperlipidemia, hypertension, sleep apnea syndrome, previous MRSA infection involving the right heel, aortic aneurysm, aortic valve replacement, and the gram-negative bacteremia as mentioned. Currently, he is feeling well. In my opinion, he could be discharged on oral antibiotics. Will leave that up to the Infectious Disease doctor and his primary hospitalist. From the pulmonary standpoint, the patient is stable. Current vital signs are reviewed, temperature 98.9, heart rate 80, respiratory rate 18, blood pressure 122/70, mean 87, room-air saturation 93-94 percent. Appears in no acute distress. HEENT: Examination is grossly unremarkable. NECK: Supple, full range of motion. No adenopathy. Neck veins are flat. CARDIOVASCULAR: Examination reveals regular rhythm and rate. Heart rate 80 beats per minute. S1, S2 normal. No S3, S4, or murmur. LUNGS: Reveal mostly clear breath sounds. Minimal rhonchi. No wheezes or crackles. ABDOMEN: Soft. EXTREMITIES: Intact. No cyanosis, clubbing, or edema. SKIN: Without rash. NEUROLOGIC: Examination is nonfocal. White count 11.4, hemoglobin 13.9, hematocrit 43.2, platelet count 343,000. PT, INR were 35.1 and 3.6. Sodium, potassium chloride, CO2 all normal, anion gap normal. BUN and creatinine were 21 and 0.8. Procalcitonin level mildly elevated at 0.14. Microbiology showing gram-negative bacilli, yet to be fully identified in the blood from April 04. Sniff test was negative. Abdominal CT findings were noted. Medications are reviewed. Currently on Rocephin and Flagyl. ASSESSMENT: 1. Acute febrile illness with symptoms of body aches, cough, sore throat, diarrhea, and headache, of unclear etiology. COVID-19 testing was negative. Influenza screen was negative. Urine cultures negative as well. 2. Gram-negative bacteremia noted in a blood culture from April 04, yet to be fully identified. 3. Mildly elevated procalcitonin level. 4. No CT angiogram evidence of pulmonary embolism. 5. History of aortic valve replacement with mechanical valve, currently on Coumadin therapy. 6. History of aortic aneurysm with history of aortic dissection acquiring surgical repair. 7. Prior history of MRSA infection involving the right heel. 8. History of sleep apnea syndrome, maintained on CPAP therapy. 9. History of essential hypertension. 10.Hyperlipidemia. 11.Previous tobacco use. PLAN: Currently, the patient is doing well. His respiratory status and hemodynamic status are stable. He remains on ceftriaxone and Flagyl. The gram-negative in the blood stream from the 04/04 has yet to be identified. He is not febrile at this time. COVID testing, influenza studies were negative. Will continue to follow. Prognosis is guarded. MMODL / IJN: [id number] /
[2020-04-11] MEDS ORDERED: WARFARIN 2 MG TAB PO ONE (18:00)
[2020-04-11] MEDS: MAGNESIUM OXIDE 400 MG TAB PO SCH (22:09)
[2020-04-11] MEDS: IPRATROPIUM-ALBUTEROL 3 ML NEB INHALATION PRN (22:13)
--- NOTE | 2020-04-11 22:31 | PN ---
PROGRESS NOTE DATE OF SERVICE: 04/11/2020 REASON FOR FOLLOWUP: Gram-negative bacteremia. INTERVAL HISTORY: The patient is currently afebrile. The patient is breathing comfortably. The patient denies having any chest pain or shortness of breath. He did complain of minimal cough. No nausea. No vomiting. No abdominal pain or any diarrhea. PHYSICAL EXAMINATION: Blood pressure 122/70 with a pulse of 93, temperature 98.9. He is 93% on room air. General description is a middle-aged male up in the room in no distress. RESPIRATORY SYSTEM: Unlabored breathing with decreased breath sounds at the base. No wheeze. HEART: S1, S2. Regular rate and rhythm. ABDOMEN: Soft. No tenderness. LABS: Hemoglobin is 13.9, white count 11.4, BUN of 21, creatinine 0.80. Follow-up blood culture has been negative. DIAGNOSTIC IMPRESSION AND PLAN: Patient admitted to hospital with a fever, GI as well as respiratory symptoms, now with evidence of Gram-negative bacteremia. CT did show some basilar air bronchograms, but no intraabdominal pathology. The patient is covered with Rocephin; to continue while waiting for the identification of this pathogen to determine his discharge antibiotics. Continue with supportive care. MMODL / IJN: [id number] /
[2020-04-12] MEDS: ACETAMINOPHEN TAB 325 MG TAB PO PRN ×2 (03:57→20:58)
[2020-04-12] MEDS: guaiFENesin-DM 100-10MG/5ML 10 ML CUP PO SCH ×4 (06:16→23:34)
[2020-04-12 08:10] LABS: Basophils # (A) 0.1 k/uL (0-0.2); Basophils % (A) 1 %; Eosinophils # (A) 0.2 k/uL (0-0.7); Eosinophils % (A) 2 %; HCT 42.6 % (39.0-53.0); HGB 13.7 gm/dL (13.0-17.5); Lymphocytes # (A) 1.6 k/uL (1.0-4.8); Lymphocytes % (A) 17 %; MCH 30.1 pg (25.0-35.0); MCHC 32.3 g/dL (31.0-37.0); MCV 93.3 fL (80.0-100.0); Mean Platelet Volume 6.4; Monocytes # (A) 0.6 k/uL (0-1.0); Monocytes % (A) 7 %; Neutrophils # (A) 6.7 k/uL (1.3-7.7); Neutrophils % (A) 71 %; Platelet Count 326 k/uL (150-450); RBC 4.56 m/uL (4.30-5.90); RDW 12.9 % (11.5-15.5); WBC 9.5 k/uL (3.8-10.6)
[2020-04-12 08:17] LABS: INR 3.8 (<1.2); Prothrombin Time 37.3 sec (9.0-12.0)
--- NOTE | 2020-04-12 10:04 | P.PN ---
Subjective this is a pleasant 64 years old male with past medical history of hypertension, sleep apnea, aortic dissection status post repair, aortic valve replacement. He follows up with Dr. Martinez as his PCP, although he denies any history of lung tissue. 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 This time patient presents with fever and upper respiratory symptoms. He has a sneezing, dry cough and and generalized body aches, mainly in his muscles associated with headache has been going on for about 3 days He denies chest pain or shortness of breath, however he has significant diarrhea 1 today which was watery-like, light brown with no blood. No abdominal pain or nausea vomiting No urinary complaints He denies smoking, alcohol or illicit drugs on admission he has a fever of 104.2, patient is breathing at 16-19 breath per minute, blood pressure 106/70 and his 96% on room air. labsShowing unremarkable WBC at 7.3K, unremarkable rest of CBC,no leukopenia, INR 2.4, sodium 136, creatinine is elevated at 1.7.liver enzymes not elevated. C-reactive protein elevated at 215, pro-calcitonin is elevated at 0.39. Urinalysis is getting concentrated but not obvious source of infection. Group A strep rapid is negative Chest x-ray: There is mild scarring and atelectasis in the left lung base slightly worse than last exam. No pulmonary consolidation. CTA of the chest:no PE. Descending thoracic aortic aneurysm increased 1 cm every maximum dimension compared to exam 5 years ago. Chronic aortic dissection similar to old exam in the emergency room patient was started on ibuprofen, no antibiotics. Normal saline at 130 mL/h. 04/06/2020 Patient is awake and alert, is breathing quietly but he still feeling chest tightness little worse this morning. And breathing therapy is provided for him. No chest pain or abdominal pain or nausea vomiting. Vitas looks stable. No fever since yesterday. His WBC came back to normal 7.0, hemoglobin slightly drop to 9.2, platelets also went down to 180 2K. It looks like patient has elements of hemoglobin delusion, sodium improved to 137. Selective for an is positive. C. diff is negative. covid test is negative, influenza test is negative. Urine Legionella test is pending. Appreciate infectious disease on pulmonary team input 04/07/2020 Patient sitting at bedside looks not in distress breathing quietly is still complaining of from significant coughing, Robitussin is added. This still have some abdominal discomfort and ongoing diarrhea, temperature today was low-grade fever only at 99.4. Labs looks stable and with no leukocytosis. Urine Legionella is negative. His INR today is went up to 1.8. As well as pro-calcitonin is increased, infectious disease team on the case and he switch his antibiotic from subtraction and Flagyl to Levaquin and Flagyl. We'll keep monitoring INR very closely as well as a lot of per meters. Patient got 4 mg of warfarin tonight. Consult cardiothoracic surgery for his history of aortic aneurysm status post repair 04/08/2020 Patient states he still short of breath today, he thinks cough medicine is helping him a little bit but he is complaining of from right shoulder pain, patient states that he has this pain for about a month from a tear but this pain is different, he has some limitation of present his arm above his head, no trauma or injury recently as per patient. His with no abdominal pain today. His stool is getting more formed, no loose stool like when he came in. However complains from hemorrhoids with some blood whenever he wipes. His CBC is stool culture are still pending. normal, creatinine is back to normal. Sodium 135 and potassium 3.3 04/09/2020 Patient breathing and coughing are looking better today is still have some loose stool. About 2-3 bowel movement since yesterday and they were loose Vital signs stable as well as BMP, INR today is 2.1 while patient is on Coumadin. Stool cultures are still pending. Mill [employer] team were consulted and they are in the process of evaluating the patient. Echocardiogram showed ejection fraction of 60-65% with moderate pulmonary regurgitation Continue on Levaquin and Flagyl and warfarin. 04/10/2020 Patient says that medicine is helping him but it does not last long. He still have some exertional dyspnea. He had loose bowel movement about 3 pounds last night and one this morning but no abdominal pain or nausea vomiting. Vitals are stable. INR is 2.2 and BMP is unremarkable. C-reactive protein trending down significantly to 61, it was 363 about, 4 days ago. Stool cultures negative. Blood culture is negative. He was started on ceftriaxone today Patient was found by several consultants including infectious disease, pulmonary and cardiology teams 04/11/2020 Patient states that his breathing is better with less dyspnea and his diarrhea is improving but are not resolved. Patient is walking in the room freely and he is asking when he can go home. Patient was updated about the problem, plan and the positive blood culture. WBCs 11.4. However Medrol dose pack was added. He is still on warfarin which is going to be adjusted today because INR went to 3.6.(target INR is 2.5-3.5) Patient is currently covered with Flagyl and IV ceftriaxone. Pro-calcitonin is trending down 0.95 down to 0.14. Several consultants on the case 04/12/2020 Patient dyspnea and diarrhea are improving, he had 3 bowel movements yesterday, between solids and soft. No abdominal pain or chest pain. He still have some coughing but he thinks the cough syrup is helping him Vitals and labs are stable. Patient was asking why he cannot go home today and explained for him this still waiting for the blood culture results and other medical issue, he agrees to stay for now. All his questions were answered to his satisfaction. WBCs back to normal at 9.5K, INR 3.8, cardiology team recommended INR 2.5-3.5. . Patient will follow-up with his property insurance agent at [facility] upon discharge Objective - Vital Signs Vital signs: Vital Signs Temp 98.2 F 04/12/20 04:00 Pulse 89 04/12/20 04:00 Resp 18 04/12/20 04:00 BP 139/82 04/12/20 04:00 Pulse Ox 90 L 04/12/20 04:00 Intake & Output 04/11/20 04/12/20 04/12/20 18:59 06:59 18:59 Intake Total 360 240 Balance 360 240 Weight 92.8 kg 92.1 kg Intake: Oral 360 240 Other: Voiding Method Toilet # Voids 1 1 # Bowel Movements 1 - Exam GENERAL: The patient is alert and oriented x3, not in any acute distress. Well developed, well nourished. HEENT: Pupils are round and equally reacting to light. EOMI. No scleral icterus. No conjunctival pallor. Normocephalic, atraumatic. No pharyngeal erythema. No thyromegaly. CARDIOVASCULAR: S1 and S2 present. No murmurs, rubs, or gallops. PULMONARY: Chest is clear to auscultation, no wheezing or crackles. ABDOMEN: Soft, nontender, nondistended, normoactive bowel sounds. No palpable organomegaly. MUSCULOSKELETAL: No joint swelling or deformity. EXTREMITIES: No cyanosis, clubbing, or pedal edema. NEUROLOGICAL: Gross neurological examination did not reveal any focal deficits. SKIN: No rashes. No petechiae - Labs CBC & Chem 7: 04/12/20 07:42 04/11/20 07:58 Labs: Abnormal Lab Results - Last 24 Hours (Table) 04/11/20 04/12/20 Range/Units 07:58 07:42 PT 35.1 H 37.3 H (9.0-12.0) sec INR 3.6 H 3.8 H (<1.2) Microbiology - Last 24 Hours (Table) 04/10/20 12:34 Blood Culture - Preliminary Blood No Growth after 24 hours 04/06/20 09:14 Blood Culture - Preliminary Blood No Growth after 120 hours 04/04/20 21:53 Blood Culture Gram Stain - Preliminary Blood Blood Culture - Preliminary Gram Neg Bacilli 04/07/20 18:30 Stool Culture - Final Stool Assessment and Plan Assessment: upper respiratory Tract infection, mostly viral versus others systemic inflammatory response with fever and tachycardia, no leukocytosis or tachypnea Mostly sepsis . Suspected Secondary to acute gastroenteritis acute kidney injury, mostly prerenal, back to normal Right shoulder pain with recent history of right shoulder tear as per patient about one months ago Hemorrhoids Thoracic aortic aneurysm increased 1 cm from old exam with chronic aortic dissection Hypertension Sleep apnea History of aortic dissection status post repair and aortic valve replacement Plan: this is a pleasant 64 years old male who presents with fever and sepsis and URT symptoms and diarrhea. Continue with antibiotic Pulmonary and infectious disease were consulted,follow-up with their r ecommendation. Cardiology consult Continue with IV fluids with close monitoring of vitals and kidney function. To avoid nephrotoxins. Monitor blood pressure and try to avoid hypotension. follow-up urine legionella test Labs and medication were reviewed.. Continue same treatment. Continue with s ymptomatic treatment. Resume home medication. Monitor lytes and vitals. DVT and GI prophylaxis. Further recommendations depends on the clinical course of the patient DVT prophylaxis: Subcutaneous Lovenox GI Prophylaxis: Ppi
[2020-04-12] MEDS: methylPREDNISolone 4 MG TAB TAPER PO SCH (10:25)
[2020-04-12] MEDS: BENZONATATE 100 MG CAP PO PRN ×3 (10:25→23:34)
[2020-04-12] MEDS: CHOLESTYRAMINE (WITH SUGAR) 4 GM PACKET PO SCH ×2 (10:25→17:34)
[2020-04-12] MEDS: VIT A,C & E-LUTEIN-MINERALS 1 EACH TAB PO SCH (10:25)
[2020-04-12] MEDS: CHLORTHALIDONE 25 MG TAB PO SCH (10:26)
[2020-04-12] MEDS: CYANOCOBALAMIN 500 MCG TAB PO SCH (10:27)
[2020-04-12] MEDS: FERROUS SULFATE 325 MG TAB PO SCH (10:27)
[2020-04-12] MEDS: ASPIRIN 81 MG PO SCH (10:27)
[2020-04-12] MEDS: METOPROLOL TARTRATE 25 MG TAB PO SCH ×2 (10:27→20:58)
[2020-04-12] MEDS: CHOLECALCIFEROL 1,000 UNIT TAB PO SCH (10:27)
[2020-04-12] MEDS: MULTIVITAMINS, THERA 1 EACH TAB PO SCH (10:28)
[2020-04-12] MEDS: metroNIDAZOLE 500 MG TAB PO SCH ×3 (10:28→20:58)
[2020-04-12] MEDS: POTASSIUM CHLORIDE ER 10 MEQ TAB.ER.PRT PO SCH (10:28)
[2020-04-12] MEDS: PANTOPRAZOLE 40 MG TABLET PO SCH (10:28)
[2020-04-12] MEDS: HYDROCORTISONE 2.5% RECTAL CREAM 30 GM TUBE RECTAL SCH ×2 (10:28→20:58)
[2020-04-12] MEDS: IPRATROPIUM-ALBUTEROL 3 ML NEB INHALATION PRN ×2 (11:30→15:12)
--- NOTE | 2020-04-12 12:48 | P.PN ---
Subjective Progress Note Date: 04/12/20 Principal diagnosis: Acute febrile illness 64-year-old white male patient with past medical history of hypertension, hypercholesterolemia, osteoarthritis, obstructive sleep apnea syndrome, iron deficiency anemia, history of aortic valve replacement with a mechanical valve and aortic aneurysm surgical repair, macular degeneration, previous history of CVA, who presented to the emergency department on 04/04/2020 with complaints of a headache, worsening fevers over the last to 3 days with T-max of 103 while at home, did have associated body aches, diarrhea. Patient denied any overt obvious exposures to anybody with the "with 19. He denied any abdominal pain. Does have a slightly sore throat and some tickling in his throat. Does have a mild cough no phlegm production. No chest pain. He was taken Motrin and Tylenol at home for symptom control. His chest x-ray showed some mild scarring and atelectasis at the left lung base, no pulmonary consolidation. CT brain was completed showing normal head CT. His lab work was reviewed, showing normal white count of 7.3, hemoglobin 14.9, patient does have lymphopenia with a lymphocyte count 0.4, INR is 2.4, d-dimer was 1.02, electrolytes were unremarkable, B1 is 25 creatinine is 1.27, plasma lactic acid was 1, ferritin was within normal limits, LDH was 801, CRP was 215, protein acetone was elevated to 0.39. Group A strep was negative, urinalysis showed 1+ protein, trace blood, but no clear evidence of urinary tract infection. Patient has been febrile since admission for most of the day today, his T-max in last 24 hours 104.2. He is on room air, his pulse ox 96%, blood pressure stable, patient is tachycardic in the low 100s. EKG showed sinus tachycardia. Patient was started on IV hydration with 0.9 normal seen at a rate of 1:30 ML per hour, we started antibiotic coverage in the form of Rocephin, : 19 PCR was sent, blood cultures have been sent, influenza screen was sent. Patient is awake and alert, oriented 3, given history of present illness. Appears to be no distress, denies any shortness of breath. The patient is seen today 04/06/2020 in follow-up on the selective care unit. He is currently sitting up at the bedside. Awake and alert in no acute distress. He is maintaining O2 saturation in the mid 90s on room air. He's been afebrile. White count 5.5. Hemoglobin 13.1. INR 1.6. Sodium 132. Potassium 3.4. Creatinine 1.18. C-reactive protein 363. C. difficile screen negative. Current virus by PCR negative. Influenza A/B negative. Rapid strep negative. Blood culture reveals no growth to date. He is currently on ceftriaxone. Levaquin has been added. The patient is seen today 04/07/2020 in follow-up on selective care unit. He is currently up ambulating in the room. Awake and alert in no acute distress. Breathing bit easier today compared to yesterday. Continues with a low grade temperature currently 99.4. Calcitonin 0.9. CRP elevated. Microbiology revealing no growth thus far. White count 6.6. Hemoglobin 13.6. INR 1.8. Sodium 134. Potassium 3.5. Creatinine 0.99. Urine legionella antigen negative. He remains on ceftriaxone and Levaquin. The patient is seen today 04/08/2020 in follow-up on the selective care unit. He is currently sitting up at the bedside. Awake and alert in no acute distress. No worsening shortness of breath, cough or congestion. Still with some dyspnea on exertion. Suspect some bronchitis. He is currently afebrile. Maintaining O2 saturations in the mid 90s on 2 L/m per nasal cannula. Hemodynamically stable. Blood cultures revealed no growth. Throat culture reveals no growth. Follow-up blood cultures reveal no growth. Stool culture is pending. White count 6.1. Hemoglobin 12.5. INR 2.1. Sodium 135. Potassium 3.3. Creatinine 0.81. Stool lactoferrin was positive. He is currently on Questran, Flagyl, Levaquin. The patient is seen today 04/09/2020 in follow-up on the selective care unit. He is awake and alert in no acute distress. Chest x-ray continues to reveal evidence of a right hemidiaphragm elevation. Noted endovascular stent graft of the distal arch and a descending thoracic aorta. There is interstitial changes slightly more pronounced, possible pulmonary vascular congestion. INR 2.1. Sodium 136. Potassium 3.5. Creatinine 0.79. He remains on Levaquin, Flagyl, bronchodilators. On 04/10/2020 patient seen in follow-up on selective care unit, denies any respiratory difficulty, he has no significant cough or congestion, remains on antibiotics in the form of Rocephin, chest x-ray shows a tissue changes correlating for possible mild pulmonary vascular congestion, and elevated right hemidiaphragm with possible hemidiaphragmatic paralysis. His breathing is comfortable. He denies any abdominal pain. No nausea or vomiting. Is having loose stools. Stool cultures are pending. ID service is following, CT of abdomen and pelvis ordered. Cardiology is following, echocardiogram showed ejection fraction of 60-65% with moderate pulmonary regurgitation, current antibiotic coverage with Levaquin and Flagyl. This was obtained showing normal diaphragm movement bilaterally. CT of abdomen and pelvis completed for the reason of gram-negative bacteremia with final cultures pending and showed cholelithiasis, possible fecal stasis, diverticulosis, bilateral inguinal hernia and hepatomegaly. The patient is seen today 04/12/2020 in follow-up on the selective care unit. He's been up ambulating in the room. Awake and alert in no acute distress. Continues to maintain O2 saturations in the 90s on room air. He is currently afebrile. Initial blood culture positive for gram-negative bacilli not cultured out. Follow-up blood cultures reveal no growth. White count 9.5. Hemoglobin 13.7. INR 3.8. Continued on ceftriaxone and Flagyl. Objective - Vital Signs Vital signs: Vital Signs Temp 98.2 F 04/12/20 04:00 Pulse 74 04/12/20 11:43 Resp 18 04/12/20 04:00 BP 139/82 04/12/20 04:00 Pulse Ox 90 L 04/12/20 04:00 Intake & Output 04/11/20 04/12/20 04/12/20 18:59 06:59 18:59 Intake Total 360 240 Balance 360 240 Weight 92.8 kg 92.1 kg Intake: Oral 360 240 Other: Voiding Method Toilet # Voids 1 1 # Bowel Movements 1 - Exam GENERAL EXAM: Alert, active, 64-year-old gentleman, maintaining O2 saturation the 90s on room air, comfortable in no apparent distress. HEAD: Normocephalic. EYES: Normal reaction of pupils, equal size. NOSE: Clear with pink turbinates. THROAT: No erythema or exudates. NECK: No masses, no JVD. CHEST: No chest wall deformity. LUNGS: Equal air entry with crackles in the bilateral posterior bases, diminished right base. CVS: S1 and S2 normal with no audible murmur, regular rhythm. ABDOMEN: No hepatosplenomegaly, normal bowel sounds, no guarding or rigidity. SPINE: No scoliosis or deformity SKIN: No rashes CENTRAL NERVOUS SYSTEM: No focal deficits, tone is normal in all 4 extremities. EXTREMITIES: There is no peripheral edema. No clubbing, no cyanosis. Peripheral pulses are intact. - Labs CBC & Chem 7: 04/12/20 07:42 04/11/20 07:58 Labs: Abnormal Lab Results - Last 24 Hours (Table) 04/12/20 Range/Units 07:42 PT 37.3 H (9.0-12.0) sec INR 3.8 H (<1.2) Microbiology - Last 24 Hours (Table) 04/06/20 09:14 Blood Culture - Final Blood No Growth after 144 hours 04/10/20 12:34 Blood Culture - Preliminary Blood No Growth after 24 hours 04/04/20 21:53 Blood Culture Gram Stain - Preliminary Blood Blood Culture - Preliminary Gram Neg Bacilli Assessment and Plan Assessment: #1. Acute febrile illness with symptoms of body aches, limited cough, sore throat, diarrhea, and headaches, ruled out Covid 19. Influenza screen negative, group A strep was negative. Legionella antigen negative. C. difficile screen negative. Chest x-ray showed mild scarring and atelectasis at the left lung base, elevated right hemidiaphragm, no pulmonary consolidation. Follow-up blood cultures reveal no growth. Stool culture no growth. #2. Elevated pro-calcitonin suggesting possibility of bacterial infection with unclear source, stool culture negative. Currently on Flagyl and cefepime #3. Increased inflammatory markers including LDH and CRP, CoVID 19 ruled out #4. Elevated d-dimer, with no CTA chest evidence of pulmonary embolism #5. History of aortic valve replacement with a mechanical valve on Coumadin therapy #6. History of aortic aneurysm with history of aortic dissection requiring surgical repair #7. History of MRSA infection in the wound on the right heel in 2018 #8. History of obstructive sleep apnea on CPAP therapy #9. History of hypertension #10. Hypercholesterolemia #11. Former smoker Plan: The patient was seen and evaluated by Dr. Mcdaniels Continue the current treatment plan Infectious disease is on the case Continued on cefepime and Flagyl Home once cleared medically I, the cosigning physician, performed a history & physical examination of the patient. Lungs sounds crackles in the bilateral posterior bases. Maintaining good O2 saturations in the 90s on room air. I discussed the assessment and plan of care with my nurse practitioner, Jessica Silva. I attest to the above note as dictated by her.
[2020-04-12] MEDS ORDERED: WARFARIN 0.5 MG TAB PO ONE (18:00)
[2020-04-12] MEDS: MAGNESIUM OXIDE 400 MG TAB PO SCH (20:58)
[2020-04-13] MEDS: ACETAMINOPHEN TAB 325 MG TAB PO PRN (05:55)
[2020-04-13] MEDS: guaiFENesin-DM 100-10MG/5ML 10 ML CUP PO SCH ×2 (06:08→12:31)
[2020-04-13] MEDS: IPRATROPIUM-ALBUTEROL 3 ML NEB INHALATION PRN ×2 (08:19→11:30)
--- NOTE | 2020-04-13 08:50 | P.PN ---
Subjective this is a pleasant 64 years old male with past medical history of hypertension, sleep apnea, aortic dissection status post repair, aortic valve replacement. He follows up with Dr. Martinez as his PCP, although he denies any history of lung tissue. He has a body bumper at trial FOR his aortic valvereplacement disease. This time patient presents with fever and upper respiratory symptoms. He has a sneezing, dry cough and and generalized body aches, mainly in his muscles associated with headache has been going on for about 3 days He denies chest pain or shortness of breath, however he has significant diarrhea 1 today which was watery-like, light brown with no blood. No abdominal pain or nausea vomiting No urinary complaints He denies smoking, alcohol or illicit drugs on admission he has a fever of 104.2, patient is breathing at 16-19 breath per minute, blood pressure 106/70 and his 96% on room air. labsShowing unremarkable WBC at 7.3K, unremarkable rest of CBC,no leukopenia, INR 2.4, sodium 136, creatinine is elevated at 1.7.liver enzymes not elevated. C-reactive protein elevated at 215, pro-calcitonin is elevated at 0.39. Urinalysis is getting concentrated but not obvious source of infection. Group A strep rapid is negative Chest x-ray: There is mild scarring and atelectasis in the left lung base slightly worse than last exam. No pulmonary consolidation. CTA of the chest:no PE. Descending thoracic aortic aneurysm increased 1 cm every maximum dimension compared to exam 5 years ago. Chronic aortic dissection similar to old exam in the emergency room patient was started on ibuprofen, no antibiotics. Normal saline at 130 mL/h. 04/06/2020 Patient is awake and alert, is breathing quietly but he still feeling chest tightness little worse this morning. And breathing therapy is provided for him. No chest pain or abdominal pain or nausea vomiting. Vitas looks stable. No fever since yesterday. His WBC came back to normal 7.0, hemoglobin slightly drop to 9.2, platelets also went down to 180 2K. It looks like patient has elements of hemoglobin delusion, sodium improved to 137. Selective for an is positive. C. diff is negative. covid test is negative, influenza test is negative. Urine Legionella test is pending. Appreciate infectious disease on pulmonary team input 04/07/2020 Patient sitting at bedside looks not in distress breathing quietly is still complaining of from significant coughing, Robitussin is added. This still have some abdominal discomfort and ongoing diarrhea, temperature today was low-grade fever only at 99.4. Labs looks stable and with no leukocytosis. Urine Legionella is negative. His INR today is went up to 1.8. As well as pro-calcitonin is increased, infectious disease team on the case and he switch his antibiotic from subtraction and Flagyl to Levaquin and Flagyl. We'll keep monitoring INR very closely as well as a lot of per meters. Patient got 4 mg of warfarin tonight. Consult cardiothoracic surgery for his history of aortic aneurysm status post repair 04/08/2020 Patient states he still short of breath today, he thinks cough medicine is helping him a little bit but he is complaining of from right shoulder pain, patient states that he has this pain for about a month from a tear but this pain is different, he has some limitation of present his arm above his head, no trauma or injury recently as per patient. His with no abdominal pain today. His stool is getting more formed, no loose stool like when he came in. However complains from hemorrhoids with some blood whenever he wipes. His CBC is stool culture are still pending. normal, creatinine is back to normal. Sodium 135 and potassium 3.3 04/09/2020 Patient breathing and coughing are looking better today is still have some loose stool. About 2-3 bowel movement since yesterday and they were loose Vital signs stable as well as BMP, INR today is 2.1 while patient is on Coumadin. Stool cultures are still pending. Biology Professor team were consulted and they are in the process of evaluating the patient. Echocardiogram showed ejection fraction of 60-65% with moderate pulmonary regurgitation Continue on Levaquin and Flagyl and warfarin. 04/10/2020 Patient says that medicine is helping him but it does not last long. He still have some exertional dyspnea. He had loose bowel movement about 3 pounds last night and one this morning but no abdominal pain or nausea vomiting. Vitals are stable. INR is 2.2 and BMP is unremarkable. C-reactive protein trending down significantly to 61, it was 363 about, 4 days ago. Stool cultures negative. Blood culture is negative. He was started on ceftriaxone today Patient was found by several consultants including infectious disease, pulmonary and cardiology teams 04/11/2020 Patient states that his breathing is better with less dyspnea and his diarrhea is improving but are not resolved. Patient is walking in the room freely and he is asking when he can go home. Patient was updated about the problem, plan and the positive blood culture. WBCs 11.4. However Medrol dose pack was added. He is still on warfarin which is going to be adjusted today because INR went to 3.6.(target INR is 2.5-3.5) Patient is currently covered with Flagyl and IV ceftriaxone. Pro-calcitonin is trending down 0.95 down to 0.14. Several consultants on the case 04/12/2020 Patient dyspnea and diarrhea are improving, he had 3 bowel movements yesterday, between solids and soft. No abdominal pain or chest pain. He still have some coughing but he thinks the cough syrup is helping him Vitals and labs are stable. Patient was asking why he cannot go home today and explained for him this still waiting for the blood culture results and other medical issue, he agrees to stay for now. All his questions were answered to his satisfaction. WBCs back to normal at 9.5K, INR 3.8, cardiology team recommended INR 2.5-3.5. . Patient will follow-up with his body bumper at [facility] upon discharge 04/13/2020 This is a pleasant 64 years old male who presents with sepsis, source was clear, pneumonia and suspected versus gastroenteritis versus upper respiratory infection, patient had diarrhea and dyspnea, he was treated with IV fluids and various courses of antibiotics like ceftriaxone, Levaquin and currently is on Flagyl and ceftriaxone. Also he was on steroids and warfarin for his history of heart valve disease, he follows up with Dr. Storm [address] [place] [address] who checked his INR. His body bumper at [facility] told him his target INR is 2-3, however as per body bumper evaluation this hospital the goal INR is 2.5-3.5. Currently his INR is on the high side at 3.8 as of yesterday, repeat INR from today still pending His breathing issues and diarrhea are improving significantly but gradually, clinically patient feels fine and his been asking when he can go home from yesterday and today. However after six-day a blood culture from 04/04 came back +2 days ago and today still showing gram-negative bacilli with no final results available yet. Patient informed and he agrees to stay. So far consultants on the case including infectious disease, cardiology, and vascular surgery who evaluated him for his chronic aortic dissection status post stent, Dr. Wood recommended follow-up as an outpatient. Please refer to her no te for more details. Objective - Vital Signs Vital signs: Vital Signs Temp 98.6 F 04/13/20 04:00 Pulse 76 04/13/20 08:32 Resp 16 04/13/20 04:00 BP 149/78 04/13/20 04:00 Pulse Ox 90 L 04/13/20 04:00 Intake & Output 04/12/20 04/13/20 04/13/20 18:59 06:59 18:59 Intake Total 840 Balance 840 Weight 92.4 kg Intake: Oral 840 Other: Voiding Method Toilet # Voids 4 2 - Exam GENERAL: The patient is alert and oriented x3, not in any acute distress. Well developed, well nourished. HEENT: Pupils are round and equally reacting to light. EOMI. No scleral icterus. No conjunctival pallor. Normocephalic, atraumatic. No pharyngeal erythema. No thyromegaly. CARDIOVASCULAR: S1 and S2 present. No murmurs, rubs, or gallops. PULMONARY: Chest is clear to auscultation, no wheezing or crackles. ABDOMEN: Soft, nontender, nondistended, normoactive bowel sounds. No palpable organomegaly. MUSCULOSKELETAL: No joint swelling or deformity. EXTREMITIES: No cyanosis, clubbing, or pedal edema. NEUROLOGICAL: Gross neurological examination did not reveal any focal deficits. SKIN: No rashes. No petechiae - Labs CBC & Chem 7: 04/12/20 07:42 04/11/20 07:58 Labs: Microbiology - Last 24 Hours (Table) 04/10/20 12:34 Blood Culture - Preliminary Blood No Growth after 48 hours 04/06/20 09:14 Blood Culture - Final Blood No Growth after 144 hours Assessment and Plan Assessment: upper respiratory Tract infection, mostly viral versus others Current negative bacilli bacteremia, final result of the blood cultures pending systemic inflammatory response with fever and tachycardia, no leukocytosis or tachypnea, improving Mostly sepsis . Suspected Secondary to acute gastroenteritis acute kidney injury, mostly prerenal, back to normal Right shoulder pain with recent history of right shoulder tear as per patient about one months ago. Currently is pain-free Hemorrhoids Thoracic aortic aneurysm increased 1 cm from old exam with chronic aortic dissection. Vascular surgery on the case Hypertension Sleep apnea History of aortic dissection status post repair and aortic valve replacement Plan: this is a pleasant 64 years old male who presents with fever and sepsis and URT symptoms and diarrhea. Continue with antibiotic as per infectious disease physician, currently patient is on ceftriaxone and Flagyl. Follow-up with the final results of the blood culture which causes gram-negative bacilli so far. Pulmonary and cardiology team on the case as well.as well as vascular surgery who recommended outpatient follow-up with her on a body bumper at [facility] Monitor INR and continue with Coumadin as per cardiology's recommendation Continue with IV fluids with close monitoring of vitals and kidney function. To avoid nephrotoxins. Monitor blood pressure and try to avoid hypotension. follow-up urine legionella test Labs and medication were reviewed.. Continue same treatment. Continue with symptomatic treatment. Resume home medication. Monitor lytes and vitals. DVT and GI prophylaxis. Further recommendations depends on the clinical course of the patient DVT prophylaxis: On Coumadin GI Prophylaxis: Ppi
[2020-04-13 09:34] LABS: Basophils # (A) 0.1 k/uL (0-0.2); Basophils % (A) 1 %; Eosinophils # (A) 0.2 k/uL (0-0.7); Eosinophils % (A) 2 %; HCT 43.4 % (39.0-53.0); HGB 13.9 gm/dL (13.0-17.5); Lymphocytes # (A) 1.6 k/uL (1.0-4.8); Lymphocytes % (A) 16 %; MCH 29.7 pg (25.0-35.0); Mean Platelet Volume 6.4; Monocytes # (A) 0.6 k/uL (0-1.0); Monocytes % (A) 6 %; Neutrophils # (A) 7.2 k/uL (1.3-7.7); Neutrophils % (A) 73 %; Platelet Count 343 k/uL (150-450); RBC 4.67 m/uL (4.30-5.90); WBC 9.8 k/uL (3.8-10.6)
[2020-04-13 09:36] LABS: Prothrombin Time 28.9 sec (9.0-12.0)
[2020-04-13] MEDS: CYANOCOBALAMIN 500 MCG TAB PO SCH (10:05)
[2020-04-13] MEDS: FERROUS SULFATE 325 MG TAB PO SCH (10:05)
[2020-04-13] MEDS: metroNIDAZOLE 500 MG TAB PO SCH (10:05)
[2020-04-13] MEDS: METOPROLOL TARTRATE 25 MG TAB PO SCH (10:06)
[2020-04-13] MEDS: MULTIVITAMINS, THERA 1 EACH TAB PO SCH (10:06)
[2020-04-13] MEDS: CHOLESTYRAMINE (WITH SUGAR) 4 GM PACKET PO SCH (10:06)
[2020-04-13] MEDS: BENZONATATE 100 MG CAP PO PRN (10:06)
[2020-04-13] MEDS: CHOLECALCIFEROL 1,000 UNIT TAB PO SCH (10:06)
[2020-04-13] MEDS: PANTOPRAZOLE 40 MG TABLET PO SCH (10:06)
[2020-04-13] MEDS: ASPIRIN 81 MG PO SCH (10:06)
[2020-04-13] MEDS: POTASSIUM CHLORIDE ER 10 MEQ TAB.ER.PRT PO SCH (10:06)
[2020-04-13] MEDS: methylPREDNISolone 4 MG TAB TAPER PO SCH (10:07)
[2020-04-13] MEDS: CHLORTHALIDONE 25 MG TAB PO SCH (10:07)
[2020-04-13] MEDS: VIT A,C & E-LUTEIN-MINERALS 1 EACH TAB PO SCH (10:08)
[2020-04-13] MEDS: HYDROCORTISONE 2.5% RECTAL CREAM 30 GM TUBE RECTAL SCH (10:30)
[2020-04-13 10:37] VITALS: TEMP 98.3
[2020-04-13 12:36] VITALS: BP 133/79; PULSE 89; RESP 16
--- NOTE | 2020-04-13 13:08 | P.PN ---
Subjective Progress Note Date: 04/13/20 Principal diagnosis: Acute febrile illness, sepsis 64-year-old white male patient with past medical history of hypertension, hypercholesterolemia, osteoarthritis, obstructive sleep apnea syndrome, iron deficiency anemia, history of aortic valve replacement with a mechanical valve and aortic aneurysm surgical repair, macular degeneration, previous history of CVA, who presented to the emergency department on 04/04/2020 with complaints of a headache, worsening fevers over the last to 3 days with T-max of 103 while at home, did have associated body aches, diarrhea. Patient denied any overt obvious exposures to anybody with the "with 19. He denied any abdominal pain. Does have a slightly sore throat and some tickling in his throat. Does have a mild cough no phlegm production. No chest pain. He was taken Motrin and Tylenol at home for symptom control. His chest x-ray showed some mild scarring and atelectasis at the left lung base, no pulmonary consolidation. CT brain was completed showing normal head CT. His lab work was reviewed, showing normal white count of 7.3, hemoglobin 14.9, patient does have lymphopenia with a lymphocyte count 0.4, INR is 2.4, d-dimer was 1.02, electrolytes were unremarkable, B1 is 25 creatinine is 1.27, plasma lactic acid was 1, ferritin was within normal limits, LDH was 801, CRP was 215, protein acetone was elevated to 0.39. Group A strep was negative, urinalysis showed 1+ protein, trace blood, but no clear evidence of urinary tract infection. Patient has been febrile since admission for most of the day today, his T-max in last 24 hours 104.2. He is on room air, his pulse ox 96%, blood pressure stable, patient is tachycardic in the low 100s. EKG showed sinus tachycardia. Patient was started on IV hydration with 0.9 normal seen at a rate of 1:30 ML per hour, we started antibiotic coverage in the form of Rocephin, : 19 PCR was sent, blood cultures have been sent, influenza screen was sent. Patient is awake and alert, oriented 3, given history of present illness. Appears to be no distress, denies any shortness of breath. The patient is seen today 04/06/2020 in follow-up on the selective care unit. He is currently sitting up at the bedside. Awake and alert in no acute distress. He is maintaining O2 saturation in the mid 90s on room air. He's been afebrile. White count 5.5. Hemoglobin 13.1. INR 1.6. Sodium 132. Potassium 3.4. Creatinine 1.18. C-reactive protein 363. C. difficile screen negative. Current virus by PCR negative. Influenza A/B negative. Rapid strep negative. Blood culture reveals no growth to date. He is currently on ceftriaxone. Levaquin has been added. The patient is seen today 04/07/2020 in follow-up on selective care unit. He is currently up ambulating in the room. Awake and alert in no acute distress. Breathing bit easier today compared to yesterday. Continues with a low grade temperature currently 99.4. Calcitonin 0.9. CRP elevated. Microbiology r evealing no growth thus far. White count 6.6. Hemoglobin 13.6. INR 1.8. Sodium 134. Potassium 3.5. Creatinine 0.99. Urine legionella antigen negative. He remains on ceftriaxone and Levaquin. The patient is seen today 04/08/2020 in follow-up on the selective care unit. He is currently sitting up at the bedside. Awake and alert in no acute distress. No worsening shortness of breath, cough or congestion. Still with some dyspnea on exertion. Suspect some bronchitis. He is currently afebrile. Maintaining O2 saturations in the mid 90s on 2 L/m per nasal cannula. Hemodynamically stable. Blood cultures revealed no growth. Throat culture reveals no growth. Follow-up blood cultures reveal no growth. Stool culture is pending. White count 6.1. Hemoglobin 12.5. INR 2.1. Sodium 135. Potassium 3.3. Creatinine 0.81. Stool lactoferrin was positive. He is currently on Questran, Flagyl, Levaquin. The patient is seen today 04/09/2020 in follow-up on the selective care unit. He is awake and alert in no acute distress. Chest x-ray continues to reveal evidence of a right hemidiaphragm elevation. Noted endovascular stent graft of the distal arch and a descending thoracic aorta. There is interstitial changes slightly more pronounced, possible pulmonary vascular congestion. INR 2.1. Sodium 136. Potassium 3.5. Creatinine 0.79. He remains on Levaquin, Flagyl, bronchodilators. On 04/10/2020 patient seen in follow-up on selective care unit, denies any respiratory difficulty, he has no significant cough or congestion, remains on antibiotics in the form of Rocephin, chest x-ray shows a tissue changes correlating for possible mild pulmonary vascular congestion, and elevated right hemidiaphragm with possible hemidiaphragmatic paralysis. His breathing is comfortable. He denies any abdominal pain. No nausea or vomiting. Is having loose stools. Stool cultures are pending. ID service is following, CT of abdomen and pelvis ordered. Cardiology is following, echocardiogram showed ejection fraction of 60-65% with moderate pulmonary regurgitation, current anti biotic coverage with Levaquin and Flagyl. This was obtained showing normal diaphragm movement bilaterally. CT of abdomen and pelvis completed for the reason of gram-negative bacteremia with final cultures pending and showed cholelithiasis, possible fecal stasis, diverticulosis, bilateral inguinal hernia and hepatomegaly. On 04/13/2020 patient seen in follow-up on selective care unit, he is awake and alert, in no acute distress, has some exertional dyspnea, lung sounds are clear, no cough or congestion, room air pulse ox is 92%, his been afebrile, vital signs have been stable, her gram-negative bacilli in his blood culture from 04/04/2020 was not identified as the organism was unstable and failed to thrive for identification. However follow blood cultures have been negative, no worsening dyspnea, cough or congestion, no hemoptysis no chest pain. Stool cultures have been negative, so cultures has been negative, today's lab work has been reviewed, showing CBC within normal limits, INR is 3, pro calcitonin significantly improved from 0.95 down to 0.14. He's had no acute events over night, patient could probably be considered for discharge home on oral antibiotics Objective - Vital Signs Vital signs: Vital Signs Temp 98.3 F 04/13/20 10:00 Pulse 89 04/13/20 12:30 Resp 16 04/13/20 12:30 BP 133/79 04/13/20 12:30 Pulse Ox 92 L 04/13/20 12:30 Intake & Output 04/12/20 04/13/20 04/13/20 18:59 06:59 18:59 Intake Total 840 170 Balance 840 170 Weight 92.4 kg Intake: Intake, IV Titration 50 Amount cefTRIAXone 2 gm In 50 Sodium Chloride 0.9% 50 ml @ 100 mls/hr IVPB Q24HR [facility] Rx#:[id number] Oral 840 120 Other: Voiding Method Toilet # Voids 4 2 - Exam GENERAL EXAM: Alert, very pleasant white male, 2 L of oxygen and the pulse ox 97% comfortable in no apparent distress. HEAD: Normocephalic/atraumatic. EYES: Normal reaction of pupils, equal size. Conjunctiva pink, sclera white. NOSE: Clear with pink turbinates. THROAT: No erythema or exudates. NECK: No masses, no JVD, no thyroid enlargement, no adenopathy. CHEST: No chest wall deformity. Symmetrical expansion. LUNGS: Equal air entry with no crackles, wheeze, rhonchi or dullness. CVS: Regular rate and rhythm, normal S1 and S2, no gallops, no murmurs, no rubs ABDOMEN: Soft, nontender. No hepatosplenomegaly, normal bowel sounds, no guarding or rigidity. EXTREMITIES: No clubbing, no edema, no cyanosis, 2+ pulses and upper and lower extremities. MUSCULOSKELETAL: Muscle strength and tone normal. SPINE: No scoliosis or deformity SKIN: No rashes CENTRAL NERVOUS SYSTEM: Alert and oriented -3. No focal deficits, tone is normal in all 4 extremities. PSYCHIATRIC: Alert and oriented -3. Appropriate affect. Intact judgment and insight. - Labs CBC & Chem 7: 04/13/20 08:15 04/11/20 07:58 Labs: Abnormal Lab Results - Last 24 Hours (Table) 04/13/20 Range/Units 08:15 PT 28.9 H (9.0-12.0) sec INR 3.0 H (<1.2) Microbiology - Last 24 Hours (Table) 04/04/20 21:53 Blood Culture Gram Stain - Final Blood Blood Culture - Final 04/10/20 12:34 Blood Culture - Preliminary Blood No Growth after 48 hours 04/06/20 09:14 Blood Culture - Final Blood No Growth after 144 hours Assessment and Plan Plan: Assessment: #1. Acute febrile illness with symptoms of body aches, limited cough, sore throat, diarrhea, and headaches, rule out Covid 19. Influenza screen is pending, group A strep was negative. Chest x-ray showed mild scarring and atelectasis at the left lung base, no pulmonary consolidation. #2. Gram-negative bacteremia, could not be identified as organism was unstable for identification, however follow-up blood cultures have been negative, probe calcitonin significantly improved from 0.95 down to 0.14, patient has been afebrile #3. Elevated pro-calcitonin suggesting possibility of bacterial infection with unclear source, he was empirically covered with Rocephin, significantly improved from peak number of 0.95 down to 0.14, with no fever, and stable vital signs #4. Increased inflammatory markers including LDH and CRP, Covid ruled out, C. diff ruled out, influenza ruled out, Legionella urine antigen ruled out, group A strep negative #5. Elevated d-dimer, with no CTA chest evidence of pulmonary embolism #6. History of aortic valve replacement with a mechanical valve on Coumadin therapy #7. History of aortic aneurysm with history of aortic dissection requiring surgical repair #8. History of MRSA infection in the wound on the right heel in 2018 #9. History of obstructive sleep apnea on CPAP therapy #10. History of hypertension #11. Hypercholesterolemia #12. Former smoker Plan: Patient has been afebrile, no distress, some mild exertional dyspnea, lung sounds are clear, no cough or congestion, he is on room air, tolerating ambulation, no clear source of infection has been identified, his blood culture showed gram-negative bacilli however the organism was unstable for final identi fication, follow cultures have been negative, patient has been asymptomatic, no fever or chills, his been treated with empiric antibiotics, pro-calcitonin has improved, no acute events overnight, no nausea vomiting. Diarrhea has improved. We'll switch the patient to oral Augmentin, he can consider for discharge home today, he can follow up with Dr. Martinez in the office in 1-2 days I performed a history & physical examination of the patient and discussed their management with my nurse practitioner, Aicha Gavin. I reviewed the nurse practitioner's note and agree with the documented findings and plan of care. Lung sounds are positive for diminished breath sounds. The findings and the im pression was discussed with the patient. I attest to the documentation by the nurse practitioner. Time with Patient: Less than 30
[2020-04-13] MEDS ORDERED: WARFARIN 5 MG TAB PO ONE (18:00)
[2020-04-13] MEDS ORDERED: AMOXIC-POT CLAV 875-125MG 1 EACH TAB PO SCH (21:00)
== END 2020-04-13 14:15 | disposition home or self-care (01) | DRG 871 ==
LOC: EC 20:19 → 3SCARD 04-05 00:10
PROVIDERS: ADMIT Internal Medicine; ATTEND Internal Medicine
DX: A41.50 Gram-negative sepsis, unspecified (principal); I71.01 Dissection of thoracic aorta; J98.11 Atelectasis; N17.9 Acute kidney failure, unspecified; D72.810 Lymphocytopenia; Z20.828 Contact with and (suspected) exposure to other viral communicable diseases; E78.00 Pure hypercholesterolemia, unspecified; E78.5 Hyperlipidemia, unspecified; E87.6 Hypokalemia; F22 Delusional disorders; G47.33 Obstructive sleep apnea (adult) (pediatric); Z99.89 Dependence on other enabling machines and devices; I10 Essential (primary) hypertension; I37.1 Nonrheumatic pulmonary valve insufficiency; I48.0 Paroxysmal atrial fibrillation; I73.9 Peripheral vascular disease, unspecified; J06.9 Acute upper respiratory infection, unspecified; K40.20 Bilateral inguinal hernia, without obstruction or gangrene, not specified as recurrent; K57.90 Diverticulosis of intestine, part unspecified, without perforation or abscess without bleeding; K64.9 Unspecified hemorrhoids; K80.20 Calculus of gallbladder without cholecystitis without obstruction; Z79.01 Long term (current) use of anticoagulants; Z79.82 Long term (current) use of aspirin; Z79.899 Other long term (current) drug therapy; Z80.1 Family history of malignant neoplasm of trachea, bronchus and lung; Z82.49 Family history of ischemic heart disease and other diseases of the circulatory system; Z86.14 Personal history of Methicillin resistant Staphylococcus aureus infection; Z86.73 Personal history of transient ischemic attack (TIA), and cerebral infarction without residual deficits; Z86.79 Personal history of other diseases of the circulatory system; Z87.891 Personal history of nicotine dependence; Z95.2 Presence of prosthetic heart valve; Z96.652 Presence of left artificial knee joint; M19.90 Unspecified osteoarthritis, unspecified site; Z98.42 Cataract extraction status, left eye; Z98.41 Cataract extraction status, right eye; Z96.1 Presence of intraocular lens; Z88.2 Allergy status to sulfonamides; I27.20 Pulmonary hypertension, unspecified; H35.30 Unspecified macular degeneration; G89.29 Other chronic pain; Z80.8 Family history of malignant neoplasm of other organs or systems; R79.1 Abnormal coagulation profile; Z86.010 Personal history of colon polyps
CPT/HCPCS: 36415; 70450; 71045; 71046; 71275; 74177; 76000; 80048; 80053; 81001; 82728; 83605; 83615; 83630; 83735; 83880; 84145; 85025; 85379; 85610; 85730; 86140; 87040; 87045; 87046; 87081; 87324; 87430; 87449; 87502; 93005; 93306; 94640; 99291

== ENCOUNTER → 2020-04-17 | Outpatient (CLI) | payer MEDICARE, OTHER ==
--- NOTE | 2020-04-17 12:18 | XR ---
EXAMINATION TYPE: XR chest 2V DATE OF EXAM: 04/17/2020 COMPARISON: Prior chest x-ray 04/09/2020 HISTORY: Z 98.890, Z 86.79, cough and congestion TECHNIQUE: Frontal and lateral views of the chest are obtained. FINDINGS: Patient is post median sternotomy and cardiac valve replacement. Stent graft is present wi thin the transverse aorta proximal descending aorta. Surgical clips are present in the right upper ch est laterally. Patchy density at the lung bases persists. There is elevation of right hemidiaphragm. No evident pneumothorax. Heart size is likely stable. IMPRESSION: Findings are similar to prior exam. Elevated right hemidiaphragm, probable subsegmental basilar atelectatic changes or scarring, correlate to exclude pneumonia.
== END | disposition home or self-care (01) ==
LOC: RADXRWHC 11:27
PROVIDERS: ATTEND Internal Medicine Interventional Cardiology
DX: Z09 Encounter for follow-up examination after completed treatment for conditions other than malignant neoplasm (principal); J98.6 Disorders of diaphragm; Z86.79 Personal history of other diseases of the circulatory system; Z98.890 Other specified postprocedural states
CPT/HCPCS: 71046

== ENCOUNTER → 2020-05-09 | Outpatient (CLI) | payer MEDICARE, OTHER ==
[2020-05-09 15:06] LABS: INR 2.63 (0.90-1.11); Prothrombin Time 26.4 sec (9.9-11.9)
== END | disposition home or self-care (01) ==
LOC: LABWHC1 09:35
PROVIDERS: ATTEND Internal Medicine Interventional Cardiology
DX: I10 Essential (primary) hypertension (principal)
CPT/HCPCS: 36415; 85610; 86769

== ENCOUNTER → 2020-06-07 | Outpatient (CLI) | payer MEDICARE, OTHER ==
[2020-06-07 14:20] LABS: INR 2.1 (<1.2); Prothrombin Time 20.1 sec (9.0-12.0)
[2020-06-07 14:23] LABS: Basophils % (A) 0 %; Eosinophils % (A) 1 %; HCT 48.3 % (39.0-53.0); HGB 15.7 gm/dL (13.0-17.5); Lymphocytes # (A) 1.1 k/uL (1.0-4.8); Lymphocytes % (A) 13 %; MCH 29.8 pg (25.0-35.0); MCHC 32.6 g/dL (31.0-37.0); MCV 91.5 fL (80.0-100.0); Mean Platelet Volume 6.7; Monocytes # (A) 0.2 k/uL (0-1.0); Monocytes % (A) 3 %; Neutrophils # (A) 7.1 k/uL (1.3-7.7); Neutrophils % (A) 83 %; Platelet Count 280 k/uL (150-450); RBC 5.28 m/uL (4.30-5.90); RDW 12.9 % (11.5-15.5); WBC 8.5 k/uL (3.8-10.6)
[2020-06-07 16:28] LABS: Erythrocyte Sedimentation Rate 8 mm/hr (0-15)
[2020-06-07 20:57] LABS: ALT 58 U/L (10-49); AST 44 U/L (14-35); African American GFR (CKD) 81.8 (60.0-200.0); Albumin/Globulin Ratio 1.82 (1.60-3.17); Alkaline Phosphatase 66 U/L (41-126); BUN/Creat Ratio 27.27 Ratio (12.00-20.00); C Reactive Protein <0.4 mg/dL (0.0-0.8); Calcium 10.3 mg/dL (8.7-10.3); Carbon Dioxide 31.9 mmol/L (21.6-31.8); Chloride 99 mmol/L (96-109); Globulin 2.8 g/dL (1.6-3.3); Glucose 112 mg/dL (70-110); Non-African American GFR(CKD) 70.6 (60.0-200.0); Potassium 4.6 mmol/L (3.5-5.5); Sodium 139 mmol/L (135-145); Total Protein 7.9 g/dL (6.2-8.2)
== END | disposition home or self-care (01) ==
LOC: LABWHC1 12:40
PROVIDERS: ATTEND Internal Medicine
DX: R05 Cough (principal); R06.00 Dyspnea, unspecified
CPT/HCPCS: 36415; 80053; 85025; 85610; 85652; 86140

== ENCOUNTER → 2020-06-19 | Outpatient (CLI) | payer MEDICARE, OTHER ==
--- NOTE | 2020-06-19 13:46 | FL ---
EXAMINATION TYPE: FL sniff test without CXR DATE OF EXAM: 06/19/2020 Comparison: Radiograph 06/02/2020 Clinical History: 64-year-old male Z95.2 Presence of prosthetic heart valve. TECHNIQUE: Real-time fluoroscopy during patient breathing and sniffing maneuver. Total fluoroscopy time: 39 seconds. Total images: 7. FINDINGS: There are median sternotomy wires are prosthetic aortic valve and prior endovascular stent graft of t he distal arch and proximal half of the descending thoracic aorta. There is prominent elevation of the right hemidiaphragm. There is sluggish movement of the right leaf during quiet breathing. Sniffing maneuver shows giovanni paradoxical movement with upward displacement of the right hemidiaphrag m. Impression: Positive exam with giovanni right hemidiaphragmatic paralysis.
--- NOTE | 2020-06-22 18:45 | P.HOLTER ---
20. O2 monitor shows sinus mechanism heart racing from 55-122 beats a minute average 87 beats a minute Occasional PVCs and one slow ventricular triplet Occasional PAC No other arrhythmias
== END | disposition home or self-care (01) ==
LOC: RADFLMAIN 10:35
PROVIDERS: ATTEND Internal Medicine
DX: G83.89 Other specified paralytic syndromes (principal); Z95.2 Presence of prosthetic heart valve
CPT/HCPCS: 76000; 93225; 93226

== ENCOUNTER → 2020-08-15 | Outpatient (CLI) | payer MEDICARE, OTHER ==
[2020-08-15 21:34] LABS: African American GFR (CKD) 91.1 (60.0-200.0); Anion Gap 6.3 mmol/L (4.00-12.00); Calcium 10.3 mg/dL (8.7-10.3); Carbon Dioxide 29.7 mmol/L (21.6-31.8); Non-African American GFR(CKD) 78.6 (60.0-200.0); Potassium 4.3 mmol/L (3.5-5.5)
== END | disposition home or self-care (01) ==
LOC: LABWHC1 11:09
PROVIDERS: ATTEND Internal Medicine Interventional Cardiology
DX: R06.00 Dyspnea, unspecified (principal)
CPT/HCPCS: 36415; 80048; 83880

== ENCOUNTER → 2020-10-26 | Outpatient (CLI) | payer MEDICARE, OTHER ==
[2020-10-26 10:03] LABS: Prothrombin Time 24.2 sec (9.0-12.0)
[2020-10-26 10:10] LABS: INR 2.5 (<1.2)
== END | disposition home or self-care (01) ==
LOC: LABWHC1 08:55
PROVIDERS: ATTEND Internal Medicine Interventional Cardiology
DX: Z79.01 Long term (current) use of anticoagulants (principal)
CPT/HCPCS: 36415; 85610

== ENCOUNTER → 2020-10-27 | Outpatient (CLI) | payer MEDICARE, OTHER ==
[2020-10-27 10:04] LABS: INR 1.7 (<1.2); Prothrombin Time 16.7 sec (9.0-12.0)
== END | disposition home or self-care (01) ==
LOC: LABWHC1 09:14
PROVIDERS: ATTEND Dentist Oral and Maxillofacial Surgery
DX: Z79.01 Long term (current) use of anticoagulants (principal)
CPT/HCPCS: 36415; 85610

== ENCOUNTER → 2020-11-15 | Outpatient (CLI) | payer MEDICARE, OTHER ==
--- NOTE | 2020-11-15 16:12 | XR ---
Lumbar spine HISTORY: Low back pain, M 47.817 3 views of lumbar spine correlated prior exam July 21, 2013 There is multilevel spondylosis. There is a slight spinal curvature. Lumbar vertebral bodies show pre served height, bone mineralization. Loss of disc height present at intervertebral levels has progress ed at L3-4, there is vacuum phenomenon at the intervertebral levels L4-5 and L5-S1. Sclerosis is pres ent in the posterior elements of the lumbar spine. After describing vascular calcifications present i n the aorta iliac distribution. IMPRESSION: Degenerative disc disease, facet arthropathy, suspect osteopenia, slight spinal curvature .
== END | disposition home or self-care (01) ==
LOC: RADXRMAIN 15:31
PROVIDERS: ATTEND Internal Medicine
DX: M51.36 Other intervertebral disc degeneration, lumbar region (principal); M47.816 Spondylosis without myelopathy or radiculopathy, lumbar region; M43.8X6 Other specified deforming dorsopathies, lumbar region
CPT/HCPCS: 72100

== ENCOUNTER → 2020-12-15 | Outpatient (CLI) | payer MEDICARE, OTHER ==
[2020-12-15 14:53] LABS: Basophils # (A) 0.04 X 10*3/uL (0.00-0.10); Basophils % (A) 0.7 %; Eosinophils # (A) 0.18 X 10*3/uL (0.04-0.35); Eosinophils % (A) 3.3 %; HCT 43.6 % (39.6-50.0); HGB 13.8 g/dL (13.0-17.0); Lymphocytes # (A) 1.11 X 10*3/uL (0.90-5.00); Lymphocytes % (A) 20.3 %; MCH 29.2 pg (27.0-32.0); MCHC 31.7 g/dL (32.0-37.0); MCV 92.4 fL (80.0-97.0); Mean Platelet Volume 9.1 fL (9.5-12.2); Monocytes # (A) 0.51 X 10*3/uL (0.20-1.00); Monocytes % (A) 9.3 %; Neutrophils # (A) 3.61 X 10*3/uL (1.80-7.70); Platelet Count 216 X 10*3/uL (140-440); RBC 4.72 X 10*6/uL (4.40-5.60); RDW 13.9 % (11.5-14.5); WBC 5.47 X 10*3/uL (4.50-10.00)
[2020-12-15 16:28] LABS: African American GFR (CKD) 103.5 (60.0-200.0); Albumin 4.6 g/dL (3.80-4.90); Albumin/Globulin Ratio 1.59 (1.60-3.17); Anion Gap 6.4 mmol/L (4.00-12.00); BUN/Creat Ratio 25.56 Ratio (12.00-20.00); Calcium 9.3 mg/dL (8.7-10.3); Carbon Dioxide 28.6 mmol/L (21.6-31.8); Chol/HDL Ratio 2.8; Globulin 2.9 g/dL (1.6-3.3); Magnesium 2.1 mg/dL (1.5-2.4); Non-African American GFR(CKD) 89.3 (60.0-200.0); Potassium 3.9 mmol/L (3.5-5.5); Total Protein 7.5 g/dL (6.2-8.2); Uric Acid 7.2 mg/dL (3.7-8.7)
== END | disposition home or self-care (01) ==
LOC: LABWHC1 10:07
PROVIDERS: ATTEND Internal Medicine Interventional Cardiology
DX: E78.2 Mixed hyperlipidemia (principal); I10 Essential (primary) hypertension; R06.00 Dyspnea, unspecified
CPT/HCPCS: 36415; 80053; 80061; 83735; 84443; 84550; 85025

== ENCOUNTER → 2021-01-29 | Outpatient (CLI) | payer MEDICARE, OTHER ==
[2021-01-29 19:29] LABS: INR 1.9 (0.90-1.11); Prothrombin Time 19.9 sec (9.9-11.9)
== END | disposition home or self-care (01) ==
LOC: LABWHC1 13:10
PROVIDERS: ATTEND Internal Medicine Interventional Cardiology
DX: Z95.2 Presence of prosthetic heart valve (principal)
CPT/HCPCS: 36415; 85610

== ENCOUNTER → 2021-02-13 | Outpatient (CLI) | payer MEDICARE, OTHER ==
[2021-02-13 19:24] LABS: INR 1.84 (0.90-1.11); Prothrombin Time 19.3 sec (9.9-11.9)
== END | disposition home or self-care (01) ==
LOC: EDSTATUS 11-15 12:32 → LABWHC1 11:22
PROVIDERS: ATTEND Internal Medicine Interventional Cardiology
DX: Z79.01 Long term (current) use of anticoagulants (principal)
CPT/HCPCS: 36415; 85610

== ENCOUNTER → 2021-05-04 | Outpatient (CLI) | payer MEDICARE, OTHER ==
[2021-05-04 15:04] LABS: Basophils # (A) 0.03 X 10*3/uL (0.00-0.10); Basophils % (A) 0.7 %; Eosinophils # (A) 0.21 X 10*3/uL (0.04-0.35); Eosinophils % (A) 4.6 %; HCT 37.1 % (39.6-50.0); HGB 11.4 g/dL (13.0-17.0); Lymphocytes # (A) 1.09 X 10*3/uL (0.90-5.00); Lymphocytes % (A) 23.9 %; MCH 28.1 pg (27.0-32.0); MCHC 30.7 g/dL (32.0-37.0); MCV 91.4 fL (80.0-97.0); Mean Platelet Volume 9.1 fL (9.5-12.2); Monocytes % (A) 8.8 %; Neutrophils # (A) 2.81 X 10*3/uL (1.80-7.70); Neutrophils % (A) 61.6 %; Platelet Count 223 X 10*3/uL (140-440); RBC 4.06 X 10*6/uL (4.40-5.60); WBC 4.56 X 10*3/uL (4.50-10.00)
== END | disposition home or self-care (01) ==
LOC: LABWHC1 10:38
PROVIDERS: ATTEND Internal Medicine Interventional Cardiology
DX: I48.0 Paroxysmal atrial fibrillation (principal)
CPT/HCPCS: 36415; 85025

== ENCOUNTER → 2021-05-15 | Outpatient (CLI) | payer MEDICARE, OTHER ==
--- NOTE | 2021-05-15 11:47 | XR ---
Sinus HISTORY: Sinus congestion, upper respiratory infection 4 views of the sinuses, no comparisons Bone mineralization is maintained. No air-fluid level in the paranasal sinuses to suggest acute sinus itis. Orbits are intact. Mastoids appear well aerated. IMPRESSION: Correlate for point tenderness to assess for sinusitis, sinus CT could be performed for i ncreased sensitivity as indicated.
--- NOTE | 2021-05-15 11:49 | XR ---
EXAMINATION TYPE: XR chest 2V DATE OF EXAM: 05/15/2021 COMPARISON: Chest x-ray 04/17/2020 HISTORY: Upper respiratory tract infection, J06.9 TECHNIQUE: Frontal and lateral views of the chest are obtained. FINDINGS: Patient is post median sternotomy. Aortic stent graft present. Patient shows post cardiac valve replacement change. Bandlike area of increased attenuation present in the infrahilar region on the right, elevation right hemidiaphragm is stable. Surgical clips present in the right axilla. No ev ident pneumothorax or pleural effusion. Cardiac mediastinal silhouette stable. IMPRESSION: Postprocedural changes. Probable basilar atelectasis, correlate to exclude pneumonia. Fo llow-up as indicated.
[2021-05-15 18:52] LABS: Basophils # (A) 0.04 X 10*3/uL (0.00-0.10); Basophils % (A) 0.7 %; Eosinophils # (A) 0.23 X 10*3/uL (0.04-0.35); Eosinophils % (A) 3.8 %; HCT 40.5 % (39.6-50.0); HGB 12.7 g/dL (13.0-17.0); Lymphocytes # (A) 1.16 X 10*3/uL (0.90-5.00); Lymphocytes % (A) 19.1 %; MCH 29.2 pg (27.0-32.0); MCHC 31.4 g/dL (32.0-37.0); MCV 93.1 fL (80.0-97.0); Mean Platelet Volume 8.9 fL (9.5-12.2); Monocytes # (A) 0.47 X 10*3/uL (0.20-1.00); Monocytes % (A) 7.7 %; Neutrophils # (A) 4.15 X 10*3/uL (1.80-7.70); Neutrophils % (A) 68.4 %; Platelet Count 297 X 10*3/uL (140-440); RBC 4.35 X 10*6/uL (4.40-5.60); RDW 13.4 % (11.5-14.5); WBC 6.07 X 10*3/uL (4.50-10.00)
[2021-05-15 19:23] LABS: INR 2.2 (0.90-1.11); Prothrombin Time 23.9 sec (9.9-11.9)
[2021-05-15 23:32] LABS: African American GFR (CKD) 87.9 (60.0-200.0); Albumin 4.7 g/dL (3.8-4.9); Blood Urea Nitrogen 20.6 mg/dL (9.0-27.0); Calcium 9.5 mg/dL (8.7-10.3); Carbon Dioxide 27.5 mmol/L (20.0-27.5); Chloride 104 mmol/L (96-109); Chol/HDL Ratio 3.33 Ratio; Glucose 108 mg/dL (70-110); LDL Cholesterol,Calculated 57.4 mg/dL (0.0-131.0); Non-African American GFR(CKD) 75.9 (60.0-200.0); Potassium 4.5 mmol/L (3.5-5.5); Sodium 143 mmol/L (135-145); Total Protein 7.3 g/dL (6.2-8.2)
[2021-05-15 23:33] LABS: ALT 40 U/L (10-49); AST 24 U/L (14-35); Albumin/Globulin Ratio 1.73 (1.60-3.17); Alkaline Phosphatase 68 U/L (41-126); Globulin 2.7 g/dL (1.6-3.3)
[2021-05-16 00:01] LABS: Streptolysin O Ab(ASO) 76 IU/L (0-200)
[2021-05-16 05:30] LABS: EBV - EA (IgG) >150.0 U/mL (<9.0); EBV - VCA (IgG) >750.0 U/mL (<18.0); EBV - VCA IgM 16.2 U/mL (<36.0)
[2021-05-16 12:10] LABS: Parvovirus B-19 IgG Antibodies 1.81 INDEX (<=0.90); Parvovirus B-19 IgM Antibodies 0.06 INDEX (<=0.90)
== END | disposition home or self-care (01) ==
LOC: LABWHC1 10:31
PROVIDERS: ATTEND Internal Medicine
DX: I48.0 Paroxysmal atrial fibrillation (principal); I10 Essential (primary) hypertension; E78.2 Mixed hyperlipidemia; J06.9 Acute upper respiratory infection, unspecified; R09.81 Nasal congestion
CPT/HCPCS: 36415; 70220; 71046; 80053; 80061; 83036; 84439; 84443; 85025; 85610; 86060; 86644; 86645; 86663; 86665; 86747

== ENCOUNTER → 2022-03-08 | Outpatient (CLI) | payer MEDICARE ==
[2022-03-08 18:23] LABS: Basophils # (A) 0.02 X 10*3/uL (0.00-0.10); Basophils % (A) 0.4 %; Eosinophils # (A) 0.13 X 10*3/uL (0.04-0.35); Eosinophils % (A) 2.4 %; HCT 41.5 % (39.6-50.0); HGB 13.9 g/dL (13.0-17.0); Immature Grans, Automated 0.2 %; Lymphocytes # (A) 0.93 X 10*3/uL (0.90-5.00); Lymphocytes % (A) 17.1 %; MCH 29.7 pg (27.0-32.0); MCHC 33.5 g/dL (32.0-37.0); MCV 88.7 fL (80.0-97.0); Mean Platelet Volume 8.8 fL (9.5-12.2); Monocytes # (A) 0.48 X 10*3/uL (0.20-1.00); Monocytes % (A) 8.8 %; NRBC Per 100 WBC 0 /100 WBCS (0.0-0.0); Neutrophils # (A) 3.86 X 10*3/uL (1.80-7.70); Neutrophils % (A) 71.1 %; Platelet Count 198 X 10*3/uL (140-440); RBC 4.68 X 10*6/uL (4.40-5.60); RDW 13.2 % (11.5-14.5); WBC 5.43 X 10*3/uL (4.50-10.00)
[2022-03-08 18:49] LABS: Erythrocyte Sedimentation Rate 7 mm/Hr (0-20)
[2022-03-08 19:59] LABS: ALT 32 U/L (10-49); AST 25 U/L (14-35); African American GFR (CKD) 86.3 (60.0-200.0); Albumin 4.5 g/dL (3.8-4.9); Albumin/Globulin Ratio 1.78 (1.60-3.17); Alkaline Phosphatase 108 U/L (41-126); BUN/Creat Ratio 21.73 Ratio (12.00-20.00); Blood Urea Nitrogen 22.6 mg/dL (9.0-27.0); C Reactive Protein <0.30 mg/dL (0.00-0.80); Calcium 9.4 mg/dL (8.7-10.3); Carbon Dioxide 26.3 mmol/L (20.0-27.5); Chloride 101 mmol/L (96-109); Chol/HDL Ratio 1.98 Ratio; Globulin 2.5 g/dL (1.6-3.3); Glucose 108 mg/dL (70-110); LDH 295 U/L (120-246); LDL Cholesterol,Calculated 34.7 mg/dL (0.0-131.0); Magnesium 2.6 mg/dL (1.5-2.4); Non-African American GFR(CKD) 74.5 (60.0-200.0); Potassium 4.4 mmol/L (3.5-5.5); Sodium 141 mmol/L (135-145); Total Protein 7.1 g/dL (6.2-8.2); VLDL Calculation 19.16 mg/dL (5.00-40.00)
[2022-03-08 20:11] LABS: Rheumatoid Factor, Qnt <10 IU/mL (0-15)
== END | disposition home or self-care (01) ==
LOC: LABWHC1 12:01
PROVIDERS: ATTEND Internal Medicine
DX: I10 Essential (primary) hypertension (principal); I48.0 Paroxysmal atrial fibrillation; E78.2 Mixed hyperlipidemia; E55.9 Vitamin D deficiency, unspecified; N40.0 Benign prostatic hyperplasia without lower urinary tract symptoms; G62.9 Polyneuropathy, unspecified
CPT/HCPCS: 36415; 80053; 80061; 82306; 82595; 82607; 83036; 83615; 83735; 83883; 84153; 84439; 84443; 85025; 85652; 86038; 86140; 86431

== ENCOUNTER → 2022-05-15 | Outpatient (CLI) | payer MEDICARE, OTHER ==
[2022-05-15 18:22] LABS: African American GFR (CKD) 96.8 (60.0-200.0); BUN/Creat Ratio 19.45 Ratio (12.00-20.00); Blood Urea Nitrogen 18.4 mg/dL (9.0-27.0); Calcium 9.8 mg/dL (8.7-10.3); Carbon Dioxide 28.7 mmol/L (20.0-27.5); Non-African American GFR(CKD) 83.5 (60.0-200.0); Potassium 4.3 mmol/L (3.5-5.5)
== END | disposition home or self-care (01) ==
LOC: LABWHC1 13:16
PROVIDERS: ATTEND Internal Medicine Interventional Cardiology
DX: I10 Essential (primary) hypertension (principal)
CPT/HCPCS: 36415; 80048

== ENCOUNTER → 2022-11-05 | Outpatient (CLI) | payer MEDICARE ==
--- NOTE | 2022-11-05 15:02 | XR ---
EXAMINATION TYPE: XR chest 2V DATE OF EXAM: 11/05/2022 COMPARISON: 05/15/2021 TECHNIQUE: PA and lateral views submitted. HISTORY: Pain FINDINGS: The lungs are clear and there is no pneumothorax, pleural effusion, or focal pneumonia. Heart size normal and no overt failure. Osseous structures demonstrate hypertrophic and degenerative changes of the spine. There appears to be postoperative change with cardiac valve replacement surgery and there appears to be an aneurysm of the aorta with suspected stent placement. Linear changes bilateral lung bases most typical of atelectasis or scar. Arthropathy of the shoulders. Surgical clips overlying the right axil la. Suggestion of an epicardial lead. IMPRESSION: 1. Stable appearing postoperative changes with basilar atelectasis favored over pneumonia.
== END | disposition home or self-care (01) ==
LOC: RADXRMAIN 13:26
PROVIDERS: ATTEND Internal Medicine
DX: J98.11 Atelectasis (principal); J18.9 Pneumonia, unspecified organism; R07.89 Other chest pain
CPT/HCPCS: 71046

== ENCOUNTER → 2023-03-13 | Outpatient (CLI) | payer MEDICARE ==
--- NOTE | 2023-03-13 15:37 | XR ---
EXAMINATION TYPE: XR cervical spine w flex/ext DATE OF EXAM: 03/13/2023 COMPARISON: NONE HISTORY: Pain TECHNIQUE: Four views are submitted. FINDINGS: The odontoid is intact. There are no compression deformities. The prevertebral soft tissue structur es are within normal limits. There is multilevel hypertrophic degenerative change C5-6 and C6-C7 pos terior spondylosis. Multilevel facet arthropathy. Alignment noted C7. Slight anterior listhesis C2-3 and C3-4 on flexion and retrolisthesis on extension. IMPRESSION: 1. Diffuse osteopenia with multilevel degenerative disc disease and facet arthropathy most marked at C5-6 and C6-C7.
== END | disposition home or self-care (01) ==
LOC: RADXRMAIN 15:05
PROVIDERS: ATTEND Internal Medicine
DX: M47.12 Other spondylosis with myelopathy, cervical region (principal); M50.023 Cervical disc disorder at C6-C7 level with myelopathy; M85.88 Other specified disorders of bone density and structure, other site
CPT/HCPCS: 72052

== ENCOUNTER → 2023-05-30 | Outpatient (CLI) | payer MEDICARE ==
--- NOTE | 2023-05-30 14:25 | CT ---
EXAMINATION TYPE: CT cervical spine wo con CT DLP: 611 mGycm, Automated exposure control for dose reduction was used. DATE OF EXAM: 05/30/2023 9:25 AM COMPARISON: Cervical spine x-rays 03/13/2023. CLINICAL INDICATION:Male, 67 years old with history of M43.12 SPONDYLOLISTHESIS, CERVICAL REGION; PHH , chronic neck pain, pain in right elbow and wrist TECHNIQUE: Axial CT images from the skull base to the inferior aspect of T2 we obtained without intra venous contrast. Coronal and sagittal reformatted images were also reviewed. Contrast used: mL of , (if blank None) Oral contrast used: (if blank None) Cervical spine: Fracture: None seen. Osseous structures, spinal canal/neural foramina: Multilevel degenerative disc disease changes with e ndplate spurring, disc osteophyte complexes, facet arthropathy; mild/moderate in degree. This appears greatest at C5-C6 where predominantly disc osteophyte complex causes mild canal stenosis and moderat e left neural foraminal stenosis. Vertebral alignment: No evidence of traumatic malalignment. Straightening of the normal cervical lord osis, can be seen with degenerative changes, pain, positioning, muscular spasm. There may be trace an terolisthesis C2 on C3. Neck soft tissues: No acute finding.. Calcifications noted involving the cervical carotid arteries an d aortic arch. Other: Lung apices show no acute infiltrate or pneumothorax. Possible mild emphysematous changes. Pa rtially seen postoperative changes of the sternum with sternal wires and surgical clips. IMPRESSION: 1. No evidence of cervical spine fracture or traumatic malalignment. 2. Multilevel cervical spondylosis, as above, appears greatest at C5-C6 where there is moderate left neural foraminal stenosis. 3. Trace anterolisthesis C2 on C3. Straightening of the normal lordosis.
== END | disposition home or self-care (01) ==
LOC: RADCTMAIN 08:59
PROVIDERS: ATTEND Orthopaedic Surgery Orthopaedic Surgery of the Spine
DX: M43.12 Spondylolisthesis, cervical region (principal); M47.812 Spondylosis without myelopathy or radiculopathy, cervical region; M99.72 Connective tissue and disc stenosis of intervertebral foramina of thoracic region; G89.29 Other chronic pain
CPT/HCPCS: 72125

== ENCOUNTER → 2023-06-10 | Outpatient (CLI) | payer MEDICARE ==
[2023-06-10 20:18] LABS: INR 2.79 sec (0.93-1.11); Prothrombin Time 28.2 sec (9.9-11.9)
== END | disposition home or self-care (01) ==
LOC: LABWHC1 11:23
PROVIDERS: ATTEND Internal Medicine Interventional Cardiology
DX: Z95.2 Presence of prosthetic heart valve (principal)
CPT/HCPCS: 36415; 85610

== ENCOUNTER → 2023-07-21 | Outpatient (CLI) | payer MEDICARE ==
--- NOTE | 2023-07-21 16:12 | XR ---
EXAMINATION TYPE: XR lumbar spine 3V DATE OF EXAM: 07/21/2023 Comparison: 11/15/2020 Clinical History: 68-year-old male M47.816 lumbar spondylosis Findings: 5 lumbar type vertebral bodies. Moderate multilevel disc/endplate degenerative changes present throug hout. Hypertrophic facet arthropathy as well. Subtle lucency noted at the L4 pars interarticularis re gion. Vertebral body heights are preserved and alignment is maintained. Baastrup's disease midthoraci c spine. Apical scarring calcifications throughout the abdominal aorta. Impression: 1. Fairly similar moderate multilevel disc/endplate degenerative changes. 2. Hypertrophic facet arthropathy. No vertebral compression collapse or malalignment. 3. Baastrup's disease.
== END | disposition home or self-care (01) ==
LOC: RADXRMAIN 15:47
PROVIDERS: ATTEND Internal Medicine
DX: M47.816 Spondylosis without myelopathy or radiculopathy, lumbar region (principal); M48.26 Kissing spine, lumbar region
CPT/HCPCS: 72100

== ENCOUNTER → 2024-02-13 | Outpatient (CLI) | payer MEDICARE | END | disposition home or self-care (01) | LOC: LABWHC1 14:44 | DX: Z53.9 Procedure and treatment not carried out, unspecified reason (principal) ==

== ENCOUNTER → 2024-03-19 | Outpatient (CLI) | payer MEDICARE ==
[2024-03-19 18:54] LABS: INR 3.15 sec (0.93-1.11); Prothrombin Time 31.6 sec (9.9-11.9)
== END | disposition home or self-care (01) ==
LOC: LABWHC1 12:51
PROVIDERS: ATTEND Internal Medicine Interventional Cardiology
DX: Z00.00 Encounter for general adult medical examination without abnormal findings (principal)
CPT/HCPCS: 36415; 85610

== ENCOUNTER → 2024-07-22 | Outpatient (CLI) | payer MEDICARE ==
[2024-07-22 18:43] LABS: Basophils # (A) 0.04 X 10*3/uL (0.00-0.10); Basophils % (A) 0.7 %; Eosinophils # (A) 0.13 X 10*3/uL (0.04-0.35); Eosinophils % (A) 2.3 %; HCT 43.5 % (39.6-50.0); HGB 14.2 g/dL (13.0-17.0); Lymphocytes # (A) 1.03 X 10*3/uL (0.90-5.00); Lymphocytes % (A) 17.9 %; MCHC 32.6 g/dL (32.0-37.0); Mean Platelet Volume 9.4 FL (9.5-12.2); Monocytes # (A) 0.66 X 10*3/uL (0.20-1.00); Monocytes % (A) 11.5 %; NRBC Per 100 WBC 0 X 10*3/uL (0.00-0.01); Neutrophils # (A) 3.88 X 10*3/uL (1.80-7.70); Neutrophils % (A) 67.4 %; Platelet Count 214 X 10*3/uL (140-440); RBC 4.89 X 10*6/uL (4.40-5.60); RDW 12.8 % (11.5-14.5); WBC 5.75 X 10*3/uL (4.50-10.00)
[2024-07-22 19:39] LABS: Chol/HDL Ratio 3.56 Ratio; Creatine Kinase 148 U/L (35-257); LDL Cholesterol,Calculated 55.6 mg/dL (0.0-131.0); Magnesium 2.4 mg/dL (1.5-2.4); Uric Acid 5.7 mg/dL (3.7-8.7)
[2024-07-22 19:40] LABS: ALT 34 U/L (10-49); AST 31 U/L (14-35); Albumin 4.4 g/dL (3.8-4.9); Albumin/Globulin Ratio 1.57 Ratio (1.60-3.17); Alkaline Phosphatase 92 U/L (41-126); BUN/Creat Ratio 20.75 Ratio (12.00-20.00); Blood Urea Nitrogen 16.6 mg/dL (9.0-27.0); Calcium 9.6 mg/dL (8.7-10.3); Carbon Dioxide 25.4 mmol/L (21.6-31.8); Chloride 105 mmol/L (96-109); Globulin 2.8 g/dL (1.6-3.3); Glucose 101 mg/dL (70-110); Potassium 4.4 mmol/L (3.5-5.5); Prostate Specific Antigen 1.64 ng/mL (0.000-4.500); Sodium 144 mmol/L (135-145); Total Bilirubin 0.8 mg/dL (0.3-1.2); Total Protein 7.2 g/dL (6.2-8.2)
[2024-07-22 19:48] LABS: Appearance,Urine Clear (Clear); Bilirubin,Urine Negative (Negative); Blood,Urine Negative (Negative); Color,Urine Yellow (Yellow); Ketones,Urine Negative (Negative); Nitrite,Urine Negative (Negative); PH, Urine 7.5; Specific Gravity,Urine 1.009 (1.001-1.030); Urobilinogen,Urine 0.2 E.U./DL
== END | disposition home or self-care (01) ==
LOC: LABWHC1 12:32
PROVIDERS: ATTEND Internal Medicine
DX: Z00.00 Encounter for general adult medical examination without abnormal findings (principal); I10 Essential (primary) hypertension; E78.2 Mixed hyperlipidemia; E55.9 Vitamin D deficiency, unspecified; N40.0 Benign prostatic hyperplasia without lower urinary tract symptoms; R35.0 Frequency of micturition
CPT/HCPCS: 36415; 80053; 80061; 81003; 82306; 82550; 83735; 84153; 84443; 84550; 85025